=== PATIENT | female | born 1960 | race Caucasian/White ===

== ENCOUNTER 2023-06-28 21:55 | Inpatient (IN) | payer OTHER, MEDICARE, SELFPAY ==
[2023-06-28] VITALS (16 sets, daily range): BP systolic 90–124; BP diastolic 38–94; BMI 40.9
[2023-06-28] MEDS: TYLENOL/FEVERALL 650 MG RECTAL (19:02)
[2023-06-28] MEDS: TYLENOL/FEVERALL 325 MG RECTAL (19:02)
--- NOTE | 2023-06-28 19:25 | ED.GENMED ---
History of Present Illness
General
Chief Complaint: Change in Mental Status
Source: patient and ambulance crew
Exam Limitations: altered mental status
Time Seen by Provider: 06/28/23 19:05
Nursing documentation reviewed up to this point in time: agreed with
Travel History
Have you had any contact with someone who has COVID-19?: Unable to Answer
Do you have any symptoms of coronavirus? Fever > 100 degrees, chills, cough, shortness of breath, sore throat, loss of taste or smell, muscle aches, or headache?: Unable to Answer
History of Present Illness
History of Present Illness:
62-year-old female presents emergency department due to fever, altered mental status. She was sleeping all day, and woke up confused. She is on home oxygen, and came in with a room air saturation of 86%.
If applicable-neuro sx onset
Onset of symptoms known: Yes
Date of onset of symptoms: 06/28/23
Time pt last seen normal is known: No
Past History
Past History
ED Past Medical History: CAD, CHF, COPD, CVA, GERD, HTN, Hypercholesterolemia, NIDDM, Seizures, Psychiatric (Anxiety, depression) and Other (anemia, urinary incontinence)
Social History
Tobacco: Former smoker
Alcohol: None
Drug: None
Living: intermediate
Employment: Not employed
Review of Systems
Review of Systems
Allergies reviewed?: Yes
All Other Systems: Not applicable
Constitutional: Reports fever
EENT: Reports no symptoms
Respiratory: Reports trouble breathing
Cardiac: Reports no symptoms
ABD/GI: Reports no symptoms
: Reports no symptoms
Neurological: Reports other (confusion)
Phy Exam
Physical Exam
Physical Exam:
Physical Exam
General: fever 106.1
Neck: supple. no meningeal signs. normal posterior pharynx
Heart: s1/s2 tachycardia, no murmur. equal radial
pulses.
HEENT: Pupils equal round reactive to light, EOMI, dry MM
Lungs: no acute respiratory distress. clear bilaterally
Abdomen: normal bowel sounds. not tender. no CVAT
Neuro: alert to person. no focal neurological deficits cranial nerves II through XII intact
Skin: no rash, stage 3 sacral ulcer
Psychiatric: cooperative, confused
Extremities: no edema. no calf tenderness. negative homans. good distal pulses
Course
Orders/Labs/Results
Orders:
Orders
06/28/23 18:44
EKG [Electrocardiogram (*1)] Urgent
Reason for Study: Fatigue / Weakness
06/28/23 18:45
EKG- Treatment ONCE
06/28/23 18:57
Acetaminophen [Tylenol/Feverall] 325 mg .ROUTE .STK-MED ONE
Acetaminophen [Tylenol/Feverall] 650 mg .ROUTE .STK-MED ONE
06/28/23 18:58
Acetaminophen [Tylenol/Feverall] 325 mg RECTAL NOW STA
Acetaminophen [Tylenol/Feverall] 650 mg RECTAL NOW STA
06/28/23 19:05
Cardiac Monitoring- Treatment ONCE
IV Insert/Care/Rem.- Treatment PRN
O2 Therapy [RESP] Urgent
Nasal Cannula Liter Flow: 4 LPM
Titrate/Wean O2 to maintain O2 sat greater than (%): 92
Pulse Ox/cont/shift [RESP] Urgent
Quantity: 1
06/28/23 19:07
CR Chest Portable - 1 View Urgent
Comment:
Reason For Exam: fever, hypoxia
Reason Study Needs to be Portable: Patient Unstable
06/28/23 19:19
COVID-19 Antigen Urgent
Source: Nasal Swab
Complete Blood Count/With Diff Urgent
Comprehensive Metabolic Panel Urgent
Creatine Phosphokinase Urgent
Comment: ADD ON
Lactic Acid Q4H
Comment: CANCEL 2nd LACTIC ACID IF 1st LACTIC ACID IS LESS THAN 2
PTT Urgent
Prothrombin Time Urgent
Urinalysis Reflex To Culture Urgent
Date Specimen was Collected: 06/28/23
Time Specimen was Collected: 19:14
Urine Microscopic Reflex Cult Urgent
Blood Culture Q30M
NAN Source: Blood/Venous
Specimen Description:
Blood Culture Q30M
NAN Source: Blood/Venous
Specimen Description:
Influenza A+B Rapid Molecular Urgent
NAN Source: Nasal Swab
Specimen Description:
Respiratory Syncytial Virus Urgent
NAN Source: Nasal Swab
Specimen Description:
Date Specimen was Collected: 06/28/23
Time Specimen was Collected: 19:14
Urine Culture Urgent
NAN Source: U
Specimen Description:
Date Specimen was Collected: 06/28/23
Time Specimen was Collected: 19:14
06/28/23 19:46
Aztreonam [Azactam] 2,000 mg IV NOW STA
06/28/23 19:59
Sterile Water [Sterile Water For Injection] 10 ml .ROUTE .[facility]-MED ONE
06/28/23 20:14
Vancomycin [Vancocin] 2,000 mg 0.9% Sodium Chloride 500 ml [Nss] 500 ml IV NOW
06/28/23 20:56
CR Hip - RT w/wo Pel 2-3 Vw* Urgent
Comment:
Reason For Exam: Pain / Fever
Include a pelvis x-ray?: Yes
06/28/23 21:01
Admit/Transfer Patient As Directed
Co-Sign Provider:
Level of Care: Inpatient admission
Assign to:: IMU- Intermediate Care
Physician / Group: Anmol
Diagnosis: Sepsis
Reason for Hospitalization: Sepsis
Expected length of stay greater than two midnights?: Yes
ELOS- Estimated Length of Stay in days: 5
I certify the patient meets the requirements for IP care: Yes
06/28/23 21:03
Code Status As Directed
Resuscitation Status: Full Code
06/28/23 21:23
Add On- LAB Urgent
Tests Added?: CPK, ESR
06/28/23 21:36
ESR [Erythrocyte Sed Rate] Urgent
06/29/23 01:16
0.9% Sodium Chloride 1000 ml [Nss] 1,000 ml IV 100 mls/hr
Acetaminophen [Tylenol] 650 mg PO Q4H PRN
Albuterol Nebs [Ventolin Nebules] 2.5 mg INH R Q6HPRN PRN
Atorvastatin [Lipitor] 40 mg PO HS
Cefepime HCl [Maxipime] 2,000 mg IV Q12H
Dextrose 50%-Water [Dextrose 50% Syringe] 12.5 grams IV [id number] PRN
Gabapentin [Neurontin] 600 mg PO TID
Glucagon [GlucaGen] 1 mg IM PRN PRN
HYDROmorphone [Dilaudid] 0.5 mg IV Q4HPRN PRN
Ondansetron Injectable [Zofran] 4 mg IV Q6HPRN PRN
Oxycodone [Roxicodone] 10 mg PO Q6H PRN
VANCOMYCIN Pharmacy to Dose [VANCOCIN Pharmacy to Dose] 1 each Pharmacy To Prepare [Call Pharmacy To Prepare] 0 ml IV PER PROTOCOL
06/29/23 01:16
WOUND/OSTOMY CONSULT Routine
Reason for Consult: Sacral Wound
Iron Routine
Osmolality, Random Urine Routine
Total Iron Binding Routine
Urine Sodium Routine
Activity As Directed
Activity Level: Out of Bed- Chair
With Assistance
Bedside Glucose Monitoring As Directed
Frequency: AC&HS
Comment: Change to q6h if pt on TPN, tube feeding or not eating
EKG with chest pain [ECG as needed] As Directed
ECG as needed for:: Chest Pain
Mota Catheter [Catheter- Indwelling] As Directed
Reason for insertion: Chronic Mota on Admit
I/O [Intake/ Output] As Directed
Frequency: Per unit guidelines
Records Request [Obtain Records] As Directed
Dates of Information to be Released: Most recent
Type of Information Requested: Entire Record
Obtain Records from: [facility]
Vital Signs As Directed
Frequency: Per unit guidelines
Weight As Directed
Frequency: Daily
Oxygen Therapy [O2 Therapy] [RESP] Routine
Titrate/Wean O2 to maintain O2 sat greater than (%): 94
Ot Eval And Treat Routine
PT Consult [Pt Eval And Treat] Routine
Activity Level: Ambulate
With Assistance
DX Deep Vein Thrombosis Video Routine
06/29/23 Breakfast
Clear Liquid
Basic Metabolic Panel IN AM
Complete Blood Count/No Diff IN AM
Glycohemoglobin (HgbA1c) IN AM
LFT [Zjtfr-Uhek-Deoblnf] IN AM
Magnesium IN AM
06/29/23 07:30
Insulin Aspart Corrective Low [Novolog Flexpen-Low Resistance] See Protocol SC AC
06/29/23 08:00
FOLic ACID [Folvite] 1 mg PO DAILY
Morphine Sulfate Extended Rel. [Ms Contin (Extended Release)] 30 mg PO BID
Phenytoin [Dilantin] 200 mg PO DAILY
Sertraline HCl [Zoloft] 100 mg PO DAILY
06/29/23 18:00
Enoxaparin Sodium [Lovenox] 40 mg SC QPM
Abnormal Lab Results
06/28/23 06/28/23
19:19 21:36
RBC 2.94 L 10^6/uL
(4.20-5.40)
Hgb 8.8 L g/dL
(12.0-16.0)
Hct 26.8 L %
(37.0-47.0)
MCHC 32.8 L g/dL
(33.0-37.0)
RDW 15.3 H %
(11.5-14.5)
Absolute Lymphs (auto) 0.9 L 10^3/uL
(1.2-3.4)
Neutrophils % 78.5 H %
(42.2-75.2)
Lymphocytes % 15.4 L %
(20.5-51.1)
ESR 59 H mm/hour
(0-20)
PT 16.9 H Sec
(11.4-14.6)
APTT 36.2 H Sec
(23.4-35.0)
Sodium 129 L mmol/L
(135-145)
Glucose 103 H mg/dl
(70-99)
Calcium 7.9 L mg/dl
(8.4-10.2)
AST 194 H U/L
(14-36)
ALT 36 H U/L
(0-35)
Alkaline Phosphatase 347 H U/L
(38-126)
Total Protein 5.6 L g/dl
(6.3-8.2)
Albumin 2.8 L g/dl
(3.5-5.0)
Urine Ketones Trace A
(Negative)
Ur Occult Blood Reflex 4+ A
(Negative)
Urine Bilirubin 1+ A
(Negative)
Leukocyte Esterase Rfl 2+ A
(Negative)
Urine RBC 7-10 A /HPF
(0-2)
Urine WBC (Reflex) 30-40 A /HPF
(0-5)
Urine Bacteria (Reflex) Many A
(Negative)
Urine Yeast Few A
(Negative)
Urine Albumin (Reflex) 1+ A
(Neg - Trace)
06/28/23 19:19
06/28/23 19:19
Vital Signs
Initial and Last Documented VS:
Initial Vital Signs
Pulse Resp Pulse Ox
99 18 94
06/28/23 18:43 06/28/23 18:43 06/28/23 18:43
Last Documented Vital Signs
Temp Pulse Resp BP Pulse Ox
102.2 F H 89 21 126/80 93
06/29/23 00:19 06/29/23 00:19 06/29/23 00:15 06/29/23 00:15 06/29/23 00:15
*Pulse Oximetry
Patient hypoxic: yes
*EKG
Interpreted by ED Provider?: Yes
EKG Intrepretation Date: 06/28/23
EKG Intrepretation Time: 19:25
Interpretation: abnormal
Comparison EKG: no comparison EKG present
Heart Rate: 96
Rate: normal
Rhythm: sinus
[place]: left axis deviation
Interval: normal interval
QRS Pattern: normal QRS
Ischemia: non-specific ST changes
*Critical Care Note
Total Time (30-74mins, 75-104mins- exclusive of procedures): Not Applicable
ED Attending Note
-
Portions of this chart may have been created with voice recognition software.� Occasional wrong word or��sound alike� substitutions may have occurred due to the inherent limitations of voice recognition software.
Discharge Plan
Departure
Patient Disposition: Admit
Date of Disposition: 06/28/23
Time of Disposition: 20:14
Admit to: ICU
Presentation/result/management discussed w/ accepting MD/DO: Hospitalist
Patient with high blood pressure during this ER visit?: Yes
Condition: Serious
Discharge Problem:
Pneumonia, Fever 106 degrees F or over, Sacral decubitus ulcer, stage III
Interventions
Interventions:
*Risk Screen - Suicide Last Done: 06/28/23 20:14
*General Assessment Last Done: 06/28/23 20:14
*Neglect/Abuse Screening Last Done: 06/28/23 20:14
ED- Fall Risk Assessment Last Done: 06/28/23 20:17
*ED COVID-19 Vaccine History Last Done: 06/28/23 20:14
ED- Neurological Assessment Last Done: 06/28/23 20:15
[2023-06-28 19:53] LABS: % Eosinophils 0.5 % (0-6); % Immature Granulocytes 0.3 % (0-0.5); % Lymphocytes 15.4 % (20.5-51.1); % Monocytes 4.3 % (1.7-9.3); % Neutrophils 78.5 % (42.2-75.2); Absolute Basophils 0.1 10^3/uL (0-0.2); Absolute Lymphocytes 0.9 10^3/uL (1.2-3.4); Absolute Monocytes 0.3 10^3/uL (0.1-0.6); Absolute Neutrophils 4.5 10^3/uL (1.4-6.5); Hematocrit 26.8 % (37.0-47.0); Hemoglobin 8.8 g/dL (12.0-16.0); Mean Corp Hgb Conc. 32.8 g/dL (33.0-37.0); Mean Corpuscular Hgb 29.9 pg (27.0-31.0); Mean Corpuscular Volume 91.2 fL (81.0-99.0); Mean Platelet Volume 9.3 fL (7.4-10.4); Nucleated Red Blood Cells % 0 %; Platelet Count 324 10^3/uL (130-400); Red Blood Cell Count 2.94 10^6/uL (4.20-5.40); Red Cell Dist. Width 15.3 % (11.5-14.5); White Blood Cell Count 5.8 10^3/uL (4.8-10.8)
[2023-06-28 20:03] LABS: INR 1.34; PT 16.9 Sec (11.4-14.6)
[2023-06-28 20:04] LABS: APTT 36.2 Sec (23.4-35.0)
[2023-06-28] MEDS: AZACTAM 2000 MG IV (20:08)
[2023-06-28 20:10] LABS: COVID-19 Antigen Negative (Negative)
[2023-06-28 20:13] LABS: ALT (SGPT) 36 U/L (0-35); AST (SGOT) 194 U/L (14-36); Albumin 2.8 g/dl (3.5-5.0); Alkaline Phosphatase 347 U/L (38-126); Blood Urea Nitrogen 7 mg/dl (7-17); Calcium 7.9 mg/dl (8.4-10.2); Carbon Dioxide 23 mmol/L (22-30); Chloride 105 mmol/L (98-107); Estimated Creatinine Clearance > 125 ml/min; Glucose 103 mg/dl (70-99); Potassium 4.8 mmol/L (3.5-5.1); Sodium 129 mmol/L (135-145); Total Bilirubin 0.7 mg/dl (0.2-1.3); Total Protein 5.6 g/dl (6.3-8.2); eGFR > 60.00
[2023-06-28 20:14] LABS: Urine Albumin 1+ (Neg - Trace); Urine Bilirubin 1+ (Negative); Urine Character Slightly Cloudy (Clear); Urine Color Yellow; Urine Glucose Negative (Negative); Urine Ketone Trace (Negative); Urine Leukocyte 2+ (Negative); Urine Nitrite Negative (Negative); Urine Occult Blood 4+ (Negative); Urine Specific Gravity 1.015 (<1.030); Urine Urobilinogen Negative (Neg - 1+)
[2023-06-28 20:28] LABS: Urine Mucus Few; Urine Squamous Cell 16-20 /LPF (Few)
[2023-06-28 20:34] LABS: Urine Bacteria Many (Negative); Urine White Cell 30-40 /HPF (0-5); Urine Yeast Few (Negative)
[2023-06-28] MEDS: VANCOCIN 540 MG IV (20:43)
--- NOTE | 2023-06-28 21:09 | HPS.HSE ---
Family Physician
-
Family Physician: Rex Boswell
Chief Complaint
-
Fever / Confusion
History of Present Illness
Patient is a 62y F with PMH significant for chronic bedbound status, seizure disorder and chronic pain who [facility] fever to 103, SpO2 = 88% on oxygen and change in mental status. Patient was recently
hospitalized at [facility] and was discharged to [facility] on Wednesday. Patient cannot tell me why she was hospitalized. She gets clearly frustrated by her inability to remember / communicate.
She currently complains of pain in the R hip and notes that she has avascular necrosis of that hip. It is not clear whether that was the reason for her recent hospitalization, however.
In the ED, patient has fever to 106.
Medical History
Past Medical History
Past Medical History: Reports Other
Additional Past Medical History:
Chronic Anemia - Unknown Type
Chronic Bed-Bound Status
Morbid Obesity
DANIEL
COPD
Chronic Hypoxemic Respiratory Failure on Home O2
Anxiety / Depression
Avascular Necrosis R Femoral Head
Chronic Pain / Chronic Opioid Dependence
Seizure Disorder
Hyponatremia
DM-II
ASCVD
Indwelling Mota Catheter
Past Surgical History: Reports Other
Additional Past Surgical History:
None Known
Social History
Tobacco: Former Smoker
Alcohol: None
Drug: None
Living: Long Term
Family History
Family History: Not pertinent
Allergies / Home Medications
Allergies reflects when Allergies were last updated in [facility].
Home Medications with original date entered in [facility]
Allergy/Medication List:
Allergies
Allergy/AdvReac Type Severity Reaction Status Date / Time
buspirone Allergy Unknown Verified 06/28/23 18:44
ciprofloxacin Allergy Unknown Verified 06/28/23 18:44
Penicillins Allergy Unknown Verified 06/28/23 18:44
Home Medications
Diclofenac Sodium 1% Gel 1 applic topical QID 06/28/23
acetaminophen 325 mg tablet (Tylenol) 650 mg PO Q4H PRN mild pain/temp>100F 06/28/23
albuterol sulfate 2.5 mg/3 mL (0.083 %) solution for nebulization 2.5 mg inhalation R Q6HPRN PRN sob/wheezing 06/28/23
atorvastatin 40 mg tablet 40 mg PO HS 06/28/23
bisacodyl 10 mg rectal suppository (Dulcolax (bisacodyl)) 10 mg UT DAILY PRN if MOM is ineffective after 24 hrs 06/28/23
calcium acetate 952 mg-aluminum sulfate 1,347 mg topical powder packet ([place]) 1 applic topical BID 06/28/23
collagenase clostridium histo. 250 unit/gram topical ointment 1 applic topical DAILY apply to sacrum 06/28/23
folic acid 1 mg tablet 1 mg PO DAILY 06/28/23
gabapentin 300 mg capsule 600 mg PO TID 06/28/23
magnesium hydroxide 400 mg/5 mL oral suspension (Milk of Magnesia) 30 ml PO DAILY PRN if no BM in 3 days 06/28/23
magnesium oxide 400 mg PO DAILY 06/28/23
morphine 30 mg tablet,extended release 30 mg PO BID 06/28/23
oxycodone 15 mg tablet (Roxicodone) 15 mg PO Q6H PRN wound pain 06/28/23
pantoprazole 40 mg tablet,delayed release 40 mg PO DAILY 06/28/23
phenytoin sodium extended 100 mg capsule 200 mg PO DAILY 06/28/23
sertraline 25 mg tablet 125 mg PO DAILY 06/28/23
sodium phosphates 19 gram-7 gram/118 mL enema (Fleet Enema) 118 ml UT DAILYPRN PRN if dulcolax is ineffective after 24 hrs 06/28/23
Review of Systems
-
History Source: Patient
A 12 point ROS was completed and negative except as noted: Yes
Constitutional: Reports Fatigue; Denies Fever or Chills
EENT: Reports Runny Nose
Respiratory: Denies Cough or Trouble Breathing
Cardiac: Denies Chest Pain or Palpitations
Abdomen/GI: Denies Abdominal Pain, Nausea, Vomiting or Diarrhea
: Reports Mota
Musculoskeletal: Reports Joint Pain and Edema
Neurological: Denies Dizzy or Headache
Physical Exam
Vital Signs
Vital Signs
Temp Pulse Resp BP Pulse Ox
106.1 F H 90 18 97/57 93
06/28/23 19:02 06/28/23 20:00 06/28/23 20:00 06/28/23 20:00 06/28/23 19:45
Physical Exam
General: Other (62y F in no acute distress. Confused - not able to contribute to history.)
HEENT: Other (Dry MM. Thick neck.)
Respiratory: Other (Decreased at bases - otherwise clear.)
Cardiac: S1/S2 and Regular Rhythm; No Murmur
GI: Other (Morbidly obese. Mild lower abdominal tenderness. No rebound / guarding. Pos BS.)
Musculoskeletal: No Clubbing, No Cyanosis and Other (Induration and increased warmth over the R greater trochanter / hip region. Pos tenderness. No appreciable fluctuance.)
Skin: Other (Stage III sacral decub wth some surrounding induration / erythema.)
Neuro: Awake and Alert; No Oriented
Psych: Confused and Depressed
Laboratory Results
-
06/28/23 19:19
06/28/23 19:19
Laboratory Results
PT 16.9 Sec (11.4-14.6) H 06/28/23 19:19
INR 1.34 06/28/23 19:19
APTT 36.2 Sec (23.4-35.0) H 06/28/23 19:19
Lactic Acid 1.0 mmol/L (0.7-2.0) 06/28/23 19:19
Total Bilirubin 0.7 mg/dl (0.2-1.3) 06/28/23 19:19
AST 194 U/L (14-36) H 06/28/23 19:19
ALT 36 U/L (0-35) H 06/28/23 19:19
Alkaline Phosphatase 347 U/L (38-126) H 06/28/23 19:19
Impression/Plan
-
A/P: Patient is a 62y F with PMH significant for morbid obesity, chronic pain and recent hospitalization at [facility], hypoxemia and confusion.
Sepsis / Fever
- Admit for further evaluation and treatment.
- Multiple potential sources including pulmonary (L base pneumonia), (CAUTI), Skin (sacral decub) and ortho (R hip).
- Continue broad spectrum abx for now with vanco and cefepime.
- Follow-up imaging and culture results and adjust treatment plan as appropriate.
- ID evaluation for additional recommendations.
- Supportive care including IVFs, antipyretics, etc.
- Obtain records from [facility] to shed light on recent hospitalization, culture data, lab values, etc.
- Check CPK, ESR, etc. Consider Ortho evaluation depending on results of labs / hip imaging / etc.
LLL Pneumonia
Acute on Chronic Hypoxemic Respiratory Failure
COPD without Acute Exacerbation
- CXR with possible L base pneumonia and small effusion.
- Fairly unimpressive findings considering fever to 106.
- IV abx as noted above.
- Nebs, O2 support, etc.
- Follow for clinical improvement.
Chronic Indwelling Mota Catheter
CAUTI
- UA consistent with infection. IV abx as noted above.
- Follow-up culture data.
- Mota exchanged in the ED this evening.
Stage III Sacral Decubitus Ulcer
- ? associated cellulitis versus inflammation related to R hip versus combination of the two.
- IV abx as noted above.
- Wound care evaluation for local care.
Avascular Necrosis of the Right Hip
- Unclear chronicity of this condition. Patient complains of pain at present and surrounding induration / increased warmth in tissues overlying the hip.
- Check x-rays to start, ESR, CPK, etc as notd above.
- IV abx as noted above.
- Depending on imaging results - ? Ortho eval / IR aspiration for further evaluation.
Abnormal LFTs
- ? if this is more reflective of muscle / bone process given AST / Alk Phos elevations.
- Additional work up as noted above.
- Follow for any GI complaints, etc.
Anemia of Chronic Disease
- Unknown baseline. Follow-up recent records from [facility] for comparison.
- No evidence of active bleeding at present.
- Check iron studies. Follow H&H for any changes.
Hyponatremia
- Reportedly chronic hyponatremia by diagnosis list.
- Check urine studies. IVFs overnight and follow for changes in lytes.
Seizure Disorder
- Unknown history, most recent seizure, etc.
- Continue phenytoin and follow for any breakthrough seizures.
Benign Hypertension
DM-II
- Patient has both listed diagnoses, but on no medications for either.
- Follow BP / glucose.
- Cover with SSI as needed. Update A1C.
Chronic Pain Syndrome
Chronic Opioid Dependence
Chronic Bed-Bound Status
- Continue usual BID morphine dosing.
- Continue oxycodone PRN - but at decreased dosing.
- PT / OT evaluations.
- ? etiology of bed-bound nature (? avascular necrosis).
Morbid Obesity due to excess calories / immobility
- Affects all aspects of care.
- This bed-bound 62y F will not be able to effect significant changes in diet or exercise to realize significant weight loss.
DVT Prophylaxis: Lovenox
Code Status: Full
[2023-06-28 21:51] LABS: Erythrocyte Sed Rate 59 mm/hour (0-20)
[2023-06-28] MEDS: TORADOL 15 MG IV (22:13)
[2023-06-28 22:22] LABS: Creatine Phosphokinase 39 U/L (30-135)
[2023-06-29] VITALS (59 sets, daily range): BP systolic 66–164; BP diastolic 42–131; BMI 39.7; BMI 39.6
[2023-06-29] MEDS: TYLENOL 650 MG PO ×3 (01:39→19:33)
[2023-06-29] MEDS: NSS 1000 IV ×4 (01:40→21:40)
[2023-06-29] MEDS: NEURONTIN 600 MG PO ×4 (01:40→21:06)
[2023-06-29] MEDS: MAXIPIME 2000 MG IV ×3 (01:48→17:33)
[2023-06-29] MEDS: STERILE WATER FOR INJECTION 10 ML IV ×3 (01:48→17:33)
[2023-06-29] MEDS: LIPITOR PO (01:49)
[2023-06-29] MEDS: DILAUDID 0.5 MG IV ×2 (02:08→10:25)
[2023-06-29 04:34] LABS: Iron 23 ug/dl (37-170)
[2023-06-29 04:35] LABS: ALT (SGPT) 41 U/L (0-35); AST (SGOT) 206 U/L (14-36); Albumin 2.3 g/dl (3.5-5.0); Alkaline Phosphatase 284 U/L (38-126); Blood Urea Nitrogen 11 mg/dl (7-17); Calcium 7.4 mg/dl (8.4-10.2); Carbon Dioxide 22 mmol/L (22-30); Chloride 107 mmol/L (98-107); Direct Bilirubin 0.6 mg/dl (0.0-0.4); Estimated Creatinine Clearance 120 ml/min; Glucose 103 mg/dl (70-99); Magnesium 1.4 mg/dl (1.6-2.3); Potassium 4.6 mmol/L (3.5-5.1); Sodium 132 mmol/L (135-145); Total Bilirubin 0.6 mg/dl (0.2-1.3); Total Protein 4.9 g/dl (6.3-8.2); eGFR > 60.00
[2023-06-29 04:45] LABS: Percent Saturation 16 % (20-50); Total Iron Binding Capacity 140 ug/dl (265-497)
[2023-06-29] MEDS: NSS 500 IV (05:47)
--- NOTE | 2023-06-29 05:51 | W.PN.UPDATE ---
Update Note
Progress Note Update
Morning Labs:
- Magnesium 1.4, repleted with Magnesium Sulfate 1gm IVPB now
- Calcium 7.4, corrected with hypoalbuminemia to 8.4, no new orders
--- NOTE | 2023-06-29 06:09 | PTCARENOTE ---
pt admitted from ED- pt is AAOx1/2- pt oriented to self and knows she is in the hospital. pt arrives from the ED with diffuse rigors, calling and screaming out. ST 120s-130s, rectal temp 103.3. PO tylenol given per AUG. notified [facility] [employer] T[employer]ER OFF- cooling
blanket applied, SBP low- 80s. bolus hung and infusing. Mg low- rider ordered and to be hung. pt skin mottled. olivares intact- draining dark isela urine. right buttock wound changed- gauze and abd applied, serosang drainage. bed alarm on at present
d/t pt mentation. pain to right hip- IV meds given per AUG. pt oriented to new room, call schaffer within reach, care ongoing.
[2023-06-29] MEDS: MAGNESIUM SULFATE 100 IV (06:27)
[2023-06-29 06:53] LABS: Osmolality Urine 346 mOsm/kg (300-900)
[2023-06-29 06:59] LABS: Urine Sodium 15 mmol/L (30-90)
[2023-06-29] MEDS: DILANTIN 200 MG PO (07:50)
[2023-06-29] MEDS: FOLVITE 1 MG PO (07:50)
[2023-06-29] MEDS: MS CONTIN (EXTENDED RELEASE) 30 MG PO (07:50)
[2023-06-29] MEDS: ZOLOFT 100 MG PO (07:50)
[2023-06-29] MEDS: VENTOLIN NEBULES 2.5 MG INH (08:09)
[2023-06-29] MEDS: NOVOLOG FLEXPEN-LOW RESISTANCE SC (08:26)
[2023-06-29 08:37] LABS: Glucose - Point of Care 133 mg/dl (70-99)
--- NOTE | 2023-06-29 09:30 | CON.ID ---
Consultation
-
Date/Time Consultation Requested: June 29, 2023 0116
Date/Time Consultation Performed: June 29, 2023 0930
Requesting Provider: Dr. Julian Fierro
Performing Provider: Dr. Ebony Rich
Reason for Consultation: Sepsis
Chief Complaint / Past History
Chief Complaint
Fevers
History of Present Illness
62-year-old female from [facility] with chronic pain from avascular necrosis of the right hip, diabetes mellitus, COPD on chronic oxygen, seizure disorder x 1 on phenytoin, chronic indwelling Olivares catheter who
presented to the hospital last night due to fevers and chills which started yesterday. Patient was febrile up to 106. White count normal.Lactic acid normal. LFTs elevated. She is placed on cooling blanket and temperature still on 101. She
complains of shaking chills. No abdominal pain. No diarrhea. Positive cough nonproductive. No headache. No URI symptoms. Her chronic right hip pain stable. She developed sacral wound approximately 1 to 2 months ago due to ambulatory
dysfunction from right hip pain. She reports she was hospitalized at [facility] about 2 and half weeks ago for COPD exacerbation, no fever at that time.
Past History
Additional Past Medical History:
DM2
Morbid Obesity
DANIEL
COPD
Chronic Hypoxemic Respiratory Failure on Home O2
CAD
Anxiety / Depression
Avascular Necrosis R Femoral Head
Chronic olivares
Chronic Pain / Chronic Opioid Dependence
Seizure Disorder
Hyponatremia
Bedbound
SNF Resident
Allergy History:
buspirone Allergy (Verified 06/28/23 18:44)
Unknown
ciprofloxacin Allergy (Verified 06/28/23 18:44)
Unknown
Penicillins Allergy (Verified 06/28/23 18:44)
Unknown
Medications Reviewed: Yes
Current Antibiotics:
Vancomycin
cefepime
metronidazole
Social History
Tobacco: Former Smoker
Alcohol: None
Drug: None
Living: [facility]-Way ([facility])
Family History
Family History: Not Pertinent
Review of Systems
Review of Systems
General: Fever, Chills and Change in Appetite
HEENT: Negative Stiff Neck, Sinus Problems, Headache or Pharyngitis
Cardiovascular: Negative Chest Pain, Dyspnea or Palpitations
Respiratory: Cough; Negative Sputum Production
Gasteroenterology: Negative Nausea or Vomiting
Genital / Urological: Negative Flank Pain
Endocrine: Weakness
Musculoskeletal: Arthralgias (chronic right hip pain)
Skin / Hair / Nails: Negative Rash
Neurological: Negative Headache or Dizziness
All systems: All other systems were reviewed and were negative
Vital Signs
Temp Pulse Resp BP Pulse Ox
101.5 F H 125 22 85/60 97
06/29/23 07:18 06/29/23 08:15 06/29/23 08:15 06/29/23 06:00 06/29/23 08:15
Selected Entries
06/28/23
19:02 06/29/23
01:36 06/29/23
07:18
Temp 106.1 F H 103.9 F H 101.5 F H
Physical Exam
Physical Exam
Constitutional: Acutely Ill (shivering) and Obese
Eyes: No Conjunctival Hemorrhage and Sclera Anicteric
Oral: Poor Dentition
Cardiovascular: S1/S2 and Other (tachycardic)
Pulmonary: Other (Decreased airway movements. ); Negative Rales or Rhonchi
Gastrointestinal: Soft, Non Tender, Non Distended and Normal Bowel Sounds
Genito-Urinary: Olivares and Clear Urine (dark)
Extremities: Edema
Musculoskeletal: Other (right hip: no effusion/erythema/warmth); Negative Spinal Tenderness
Skin: Negative Rash
Wound: Other (Examined with wound nurse Michelle: sacral decubitus with clean healthy granulating tissue, no drainage, no surrounding erythema)
Neurological: AO x 3
Lab / Diagnostic Study Results
06/29/23 03:52
Abs Immat Gran (auto) 0.0 10^3/uL (0-0.05) 06/28/23 19:19
Absolute Neuts (auto) 4.5 10^3/uL (1.4-6.5) 06/28/23 19:19
Absolute Lymphs (auto) 0.9 10^3/uL (1.2-3.4) L 06/28/23 19:19
Absolute Monos (auto) 0.3 10^3/uL (0.1-0.6) 06/28/23 19:19
Absolute Basos (auto) 0.1 10^3/uL (0-0.2) 06/28/23 19:19
Immature Gran % 0.3 % (0-0.5) 06/28/23 19:19
Neutrophils % 78.5 % (42.2-75.2) H 06/28/23 19:19
Lymphocytes % 15.4 % (20.5-51.1) L 06/28/23 19:19
Monocytes % 4.3 % (1.7-9.3) 06/28/23 19:19
Eosinophils % 0.5 % (0-6) 06/28/23 19:19
Basophils % 1.0 % (0-2) 06/28/23 19:19
ESR 59 mm/hour (0-20) H 06/28/23 21:36
PT 16.9 Sec (11.4-14.6) H 06/28/23 19:19
INR 1.34 06/28/23 19:19
Lactic Acid Cancelled 06/28/23 23:15
Ur Squamous Epith Cells 16-20 /LPF (Few) 06/28/23 19:19
Microbiology Results
Micro:
06/29/23 03:52 MRSA Screen - Pending
Nose
06/28/23 19:19 Urine Culture - Pending
Urine
06/28/23 19:19 Influenza Types A & B (AB) - Final
Nasal Swab Negative for Influenza A & B, NAAT
Negative results must be combined with clinical observations
and patient history.
Nucleic Acid Amplification test (NAAT)performed on the
[employer] platform.
06/28/23 19:19 Respiratory Syncytial Virus Culture - Final
Nasal Swab Negative for Respiratory Syncytial Virus.
A false negative result may be obtained with a specimen
collected early in the acute phase. If symptoms persist, a
new specimen should be tested.
06/28/23 19:19 Blood Culture - Pending
Blood/Venous
06/28/23 19:19 Blood Culture - Pending
Blood/Venous
06/28/23 CXR: Small left pleural effusion with associated atelectasis and/or pneumonia.
Assessment / Plan
# High fever/hyperthermia up to 106F
# Tachycardia
# Elevated LFT's (unclear acute vs chronic)
# chronic sacral decubitus - clean w/o infection
# Chronic olivares - expected pyuria/colonization
# CXR: small L pleural effusion with atelectasis
# COPD on chronic O2
# Chronic right hip pain avascular necrosis of hip
# Reported seizure x 1, on phenytoin
- no leukocytosis, lactate normal
- highly concern for phenytoin associated high fever, possibly source of transaminases
-awaiting outside records from [facility]
-Agree with Neuro consult regarding replacing phenytoin and monitor for improvement of fevers
- Can continue Vanco/cefepime pending culture data.
-DC metronidazole.
Care Review
Plan reviewed with: Physician (Dr. Fierro)
--- NOTE | 2023-06-29 09:47 | CM ---
Patient from [facility] with Dx Sepsis / Fever, PNA, CAUTI, Stage III Sacral Decubitus Ulcer. O2 8L midflow. Receiving IV Abx, Decadron. Clear liquids. Per nurse assessment; confused, requires assist of 2 for mobility. Wound care nurse
consult. PT & OT Evals pending.
Spoke with Felicity, s [facility]; the patient was at [facility] for short term rehab under [employer] insurance auth (no bed hold), and was not participating well with PT. She was confused and requiring total care.
Plan follow up after PT/OT Evals.
[2023-06-29] MEDS: FLAGYL 500 MG 100 IV (09:52)
[2023-06-29] MEDS: ProAmatine 5 MG PO (09:52)
[2023-06-29] MEDS: DECADRON 4 MG IV ×3 (09:52→21:06)
[2023-06-29 09:54] LABS: NT-proBNP 7100 pg/ml
--- NOTE | 2023-06-29 10:25 | WOUNDNOTE ---
R BUTTOCK TO R ISCHIUM
--- NOTE | 2023-06-29 10:29 | WOUNDNOTE ---
L BUTTOCK DOWN TO L ISCHIUM
--- NOTE | 2023-06-29 10:30 | WOUNDNOTE ---
WON RN note: Patient admitted with pneumonia,fever and sacral decubitus stage 3.
See H&P for complete history. From [facility], .
PMH: CAD,CHF,COPD,CVA,HTN,NIDDM, ex smoker, anxiety/depression, anemia, seizures, urinary incontinence-chronic Mota catheter, avascular necrosis to R hip and chronic pain.
Wound Location and type/assessment: Patient admitted with: Stage 3 large PI to L buttock extending down to Ischium, small hermosillo eschar, otherwise clean and friable. R buttock with small stage 2 PI. R thigh with stage 3 PI. Patient states she has had
wounds for about a month. Suspect obtained PI from prolonged sitting in chair. Heels intact.
Appetite: Fair, encouraged protein in diet when able, on clears.
Pressure redistribution devices in place: On Centrella Max bed, instructed nurse make sure patient remains on air bed.
Plan: Adaptic, ABD pad and silicone tape applied to L buttock/ischium and silicone foam to R thigh. Confirmed wound care with Dr. Rich who assessed wounds with this specifications writer. Pillow placed under calves to offload intact heels.
Updated nurse Nola and will update care plan/orders. Will follow as needed.
Note to case management of equipment requested for discharge: Air mattress and offloading cushion
Recommend follow up at wound care center upon discharge.
--- NOTE | 2023-06-29 10:52 | PHA.VAN.IN ---
Assessment
- Assessment
Renal Function: Appears similar to baseline
Concomitant Antimicrobials: cefepime
Plan
- Plan
Initial / Loading Dose: 2000mg - 06/28 20:43
Maintenance Regimen: 750mg q6 x3 doses then dosing by level
Monitoring: random 06/30 0600
Given patient's BMI and estimated renal function, anticipate subtherapeutic levels may be remaining post 2g loading dose
Patient also may be slower to achieve equilibrium between tissues and serum due to BMI
Will give patient a divided loading dose based on the study: Rosalba Pharmacother. 2015 Jan;49(8):861-8
Adapting slightly - will give reduced dosing of 750mg Q6 rather than 1000mg Q6 as patient received initial 2g dose and with bedbound status and comorbidities, estimated renal function may be less accurate
Pharmacokinetics Vancomycin I
- -
Patient Age: 62
Patient Sex: Female
Vancomycin Day #: 1
Indication: Bacteremia
Requesting Provider: Dr. Corea / Hilario
Pertinent Antimicrobial Allergies:
ciprofloxacin - unknown
penicillin - unknown
Height / Weight:
Height 5 ft 10 in
Actual Weight 125.3 kg
Pertinent Past Medical History: BMI ~40, DM, COPD on chronic O2, bedbound
- Vital Signs / Lab Results
Temp Pulse Resp BP Pulse Ox
100.2 F 105 31 99/52 98
06/29/23 10:30 06/29/23 10:30 06/29/23 10:30 06/29/23 10:30 06/29/23 10:37
Lab Results - Hematology
06/28/23
19:19
WBC 5.8
Lab Results - Chemistry
06/28/23 06/29/23
19:19 03:52
BUN 7 11
Creatinine 0.6 0.7
Estimated Creat Clear > 125 120
Albumin 2.8 L 2.3 L
06/28/23 06/28/23
19:19 23:15
Lactic Acid 1.0 Cancelled
Lab Results - Urine
06/28/23
19:19
Urine Nitrite (Reflex) Negative
Leukocyte Esterase Rfl 2+ A
Urine WBC (Reflex) 30-40 A
Ur Squamous Epith Cells 16-20
Urine Bacteria (Reflex) Many A
Microbiology Results
06/28/23 19:19 Influenza Types A & B (AB) - Final
Nasal Swab Negative for Influenza A & B, NAAT
Negative results must be combined with clinical observations
and patient history.
Nucleic Acid Amplification test (NAAT)performed on the
[employer] platform.
06/28/23 19:19 Respiratory Syncytial Virus Culture - Final
Nasal Swab Negative for Respiratory Syncytial Virus.
A false negative result may be obtained with a specimen
collected early in the acute phase. If symptoms persist, a
new specimen should be tested.
[2023-06-29] MEDS: VANCOCIN 150 IV ×3 (11:38→23:14)
[2023-06-29] MEDS: MUCINEX 1200 MG PO ×2 (11:38→19:33)
[2023-06-29] MEDS: ATIVAN 0.5 MG PO (11:46)
--- NOTE | 2023-06-29 12:31 | CON.NEURO ---
Consultation
Order
CC: none
HPI: This is a 62-year-old right-handed woman who presented to [facility] on 06/28/2023 with encephalopathy and fever. Neurology consultation was requested for management of antiepileptic therapy in view of suspected drug-induced
hyperthermia.
Patient with a single seizure in remote past. No history of epilepsy, head trauma with loss of consciousness or strokes.
She states that she was recently treated for sacral infection
ER VS: 121/63-74/63, 99-104, 22-25, T 41.2C, 94% on 4l NC
VS by EMS: 121/63, 108, 20, SPo2 77%
PDMP:Oxycodone Hcl (Ir) 5 Mg Tablet 180 tabs filled in on 06/16/2023, 06/10/2023, Morphine Sulf 100 Mg/5 Ml Conc filled in on 06/10/2023, Lorazepam 0.5 Mg 30+ 42 tabs filled in on 06/03/2023
Labs: mg 1.4, gluc 104, normal WBC, Hb 8.8, ESR 59, ua-pos for LE, bacteria, 30-40 WBCs, neg for nitrates.
CXR-small left pleural effusion with associated atelectasis and/or pneumonia.
PMH: Chronic pain syndrome on opioid therapy, ambulatory dysfunction, chronic hypoxic respiratory failure/COPD, DANIEL, CAD, HTN, DLP, DM, MDD, GERD, anemia, Avascular Necrosis R Femoral Head
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
FH:not contributory
All: cipro, buspirone, PNC
ROS:Constitutional: Negative. Negative for chills, fever and unexpected weight change.
HENT: Negative for ear pain, hearing loss, tinnitus and trouble swallowing.
Eyes: Negative. Negative for photophobia, pain and visual disturbance.
Respiratory: Negative for cough, choking and shortness of breath.
Cardiovascular: Negative for chest pain, palpitations and leg swelling.
Gastrointestinal: Negative for abdominal pain and vomiting.
Endocrine: Negative. Negative for cold intolerance.
Genitourinary: positive for chronic UI
Musculoskeletal: positive for arthralgias (chronic right hip pain)
Skin: Negative for rash.
Allergic/Immunologic: Negative. Negative for immunocompromised state.
Neurological: positive for tremors, leg weakness
Psychiatric/Behavioral: positive for transient confusion.
General: Well developed. In no acute distress.
Cardio: Regular rate and rhythm without murmur. Extremities are without cyanosis or edema.
Neuro:
Mental Status: Alert, oriented to self, person, place, month, year. Mildly impaired attention and recall. Good fund of knowledge. Follows complex requests across the midline. Comprehension, naming, and repetition intact.
Cranial Nerves: Pupils are equally round and reactive to light. EOMs full. Visual garrett full to confrontation. No ptosis. No nystagmus. V1-V3 intact to light touch and pinprick bilaterally, symmetric. Face symmetric. Normal hearing AU. The
palate elevated well. SCMs and traps 5/5. Tongue midline. No dysarthria.
Motor: Normal bulk and tone. No pronator or arm drift. Strength 5/5 throughout, except for proximal leg weakness 1/5. Distal strength-5-/5 No clonus.
Reflexes: 2+ throughout the upper extremities and 0 knees. 0/2 in AJs. Plantar responses flexor bilaterally.
Sensory: reduced vibration t the toes and preserved at the ankles
Coordination: Intermittent action BL hand tremor, resting chin tremor. No dysmetria
Gait: nonambulatory
Assessment and Plan:
I. Multifactorial encephalopathy (metabolic, toxic, infectious).
II. Action hand tremor
III. Hypomagnesemia
IV. Fever. Phenytoin induced fever is generally occur in one week to 1 month after therapy initiation and is likely the reason of fever based on provide history.
V. Chronic proximal paraparesis(upper lumbar polyradiculopathy?)
-Aspiration precautions.
-Avoid cerebral hypoperfusion, P[place] C[employer] suppressants and anticholinergic medications.
-please check TSH, free T4, vit B12, thiamine, ammonia, CK
-Please obtain medical records from [facility](EEGs)
-ID consult
-Will obtain collateral history from patient's family regarding cognitive baseline.
-DVT prophylaxis.
I personally reviewed all radiology and labs along with past medical records pertinent to current medical problems.
Thank you for allowing us to participate in the care of this patient. We will continue to follow. Please do not hesitate to contact us with any questions or concerns.
Subjective/Objective
Subjective Data
Date of Service: June 29, 2023
Objective Data
Vital Signs
Temp Pulse Resp BP Pulse Ox
36.4 C 105 31 99/52 98
06/29/23 11:21 06/29/23 10:30 06/29/23 10:30 06/29/23 10:30 06/29/23 10:37
Lab Results
06/29/23 03:52
PT 16.9 Sec (11.4-14.6) H 06/28/23 19:19
INR 1.34 06/28/23 19:19
APTT 36.2 Sec (23.4-35.0) H 06/28/23 19:19
Sodium 132 mmol/L (135-145) L 06/29/23 03:52
Potassium 4.6 mmol/L (3.5-5.1) 06/29/23 03:52
BUN 11 mg/dl (7-17) 06/29/23 03:52
Glucose 103 mg/dl (70-99) H 06/29/23 03:52
Calcium 7.4 mg/dl (8.4-10.2) L 06/29/23 03:52
Fyp-J-Scpaobjvpzq Pept 7100 pg/ml 06/29/23 03:52
Patient Allergies
buspirone Allergy (Verified 06/28/23 18:44)
Unknown
ciprofloxacin Allergy (Verified 06/28/23 18:44)
Unknown
Penicillins Allergy (Verified 06/28/23 18:44)
Unknown
Modified [place] Score (MRS)
-
MRS Score:
Medications
-
Active Medications
Generic Name Dose Route Start Last Admin
Trade Name Freq PRN Reason Stop Dose Admin
Acetaminophen 650 mg 06/29/23 01:16 06/29/23 07:50
Acetaminophen 325 Mg Tablet PO 07/27/23 01:15 650 mg
Q4H PRN Administration
mild pain/temp>101
Atorvastatin Calcium 40 mg 06/29/23 01:16 06/29/23 01:49
Atorvastatin (Lipitor) 40 Mg Tablet PO 07/27/23 01:15 Not Given
HS STEFFEN
Cefepime HCl 2,000 mg 06/29/23 02:00 06/29/23 09:53
Cefepime Hcl 2,000 Mg/12.5 Ml Vial IV 2,000 mg
Q8H STEFFEN Administration
Dexamethasone Sodium Phosphate 4 mg 06/29/23 09:00 06/29/23 09:52
Dexamethasone 4 Mg/Ml 1 Ml Vial IV 07/27/23 08:59 4 mg
Q6H STEFFEN Administration
Dextrose 12.5 grams 06/29/23 01:16
Dextrose 50% (0.5 Grams/Ml) 50 Ml Syringe IV 07/27/23 01:15
[id number] PRN
hypoglycemia
Protocol
Enoxaparin Sodium 40 mg 06/29/23 18:00
Enoxaparin Sodium 40 Mg/0.4 Ml Syringe SC 07/27/23 17:59
QPM STEFFEN
Folic Acid 1 mg 06/29/23 08:00 06/29/23 07:50
Folic Acid 1 Mg Tablet PO 07/27/23 07:59 1 mg
DAILY STEFFEN Administration
Gabapentin 600 mg 06/29/23 01:16 06/29/23 07:51
Gabapentin 300 Mg Capsule PO 07/27/23 01:15 600 mg
TID STEFFEN Administration
Glucagon 1 mg 06/29/23 01:16
Glucagon 1 Mg Vial IM 07/27/23 01:15
PRN PRN
hypoglycemia
Protocol
Guaifenesin 1,200 mg 06/29/23 12:00 06/29/23 11:38
Guaifenesin 600 Mg Extended Release Tablet PO 07/27/23 11:59 1,200 mg
Q12 STEFFEN Administration
Hydromorphone HCl 0.5 mg 06/29/23 01:16 06/29/23 10:25
Hydromorphone 0.5 Mg/0.5 Ml Syringe IV 07/13/23 01:15 0.5 mg
Q4HPRN PRN Administration
severe pain
Sodium Chloride 1,000 mls @ 100 mls/hr 06/29/23 01:16 06/29/23 11:38
Nss IV 1,000 mls
.Q10H STEFFEN Administration
Vancomycin HCl 750 mg in 150 mls @ 150 mls/hr 06/29/23 12:00 06/29/23 11:38
Vancocin IV 06/30/23 00:59 150 mls
Q6 STEFFEN Administration
Insulin Aspart 0 units 06/29/23 07:30 06/29/23 08:26
Insulin Aspart Low Resistance 300 Units/3 Ml Pen.Injctr SC 07/27/23 07:29 Not Given
AC STEFFEN
Protocol
Ipratropium Tryon 0.5 mg 06/29/23 14:00
Ipratropium Nebs 0.5 Mg/2.5 Ml Ampul INH 07/27/23 13:59
R TID STEFFEN
Protocol
Ipratropium Tryon 0.5 mg 06/29/23 08:22
Ipratropium Nebs 0.5 Mg/2.5 Ml Ampul INH 07/27/23 08:21
R Q6HPRN PRN
sob or wheezing
Protocol
Levalbuterol HCl 1.25 mg 06/29/23 14:00
Levalbuterol 1.25 Mg/3 Ml Ampul INH 07/27/23 13:59
R TID STEFFEN
Protocol
Levalbuterol HCl 1.25 mg 06/29/23 08:22
Levalbuterol 1.25 Mg/3 Ml Ampul INH 07/27/23 08:21
R Q6HPRN PRN
sob or wheezing
Protocol
Morphine Sulfate 15 mg 06/29/23 20:00
Morphine 15 Mg Extended Release Tablet PO 07/13/23 19:59
BID STEFFEN
Ondansetron HCl 4 mg 06/29/23 01:16
Ondansetron 4 Mg/2 Ml Vial IV 07/27/23 01:15
Q6HPRN PRN
nausea and vomiting
Oxycodone HCl 10 mg 06/29/23 01:16
Oxycodone 15 Mg Regular Release Tablet PO 07/13/23 01:15
Q6H PRN
moderate pain
Phenytoin 200 mg 06/29/23 08:00 06/29/23 07:50
Phenytoin Sodium Extended 100 Mg Capsule PO 07/27/23 07:59 200 mg
DAILY STEFFEN Administration
Sertraline HCl 100 mg 06/29/23 08:00 06/29/23 07:50
Sertraline 25 Mg Tablet PO 07/27/23 07:59 100 mg
DAILY STEFFEN Administration
Sodium Chloride 0 flush 06/28/23 23:00
Sodium Chloride 0.9% (Flush) Syringe IV 07/26/23 22:59
PER PROTOCOL STEFFEN
Sterile Water 10 ml 06/29/23 02:00 06/29/23 09:52
Sterile Water For Injection 10 Ml Vial IV 07/27/23 01:59 10 ml
Q8H STEFFEN Administration
Home Medications
Medication Instructions Recorded
Diclofenac Sodium 1% Gel 1 applic topical QID pain 06/28/23
acetaminophen 325 mg tablet 650 mg PO Q4H PRN mild 06/28/23
(Tylenol) pain/temp>100F
albuterol sulfate 2.5 mg/3 mL 2.5 mg inhalation R Q6HPRN PRN 06/28/23
(0.083 %) solution for nebulization sob/wheezing
atorvastatin 40 mg tablet 40 mg PO HS High Cholesterol 06/28/23
bisacodyl 10 mg rectal suppository 10 mg CO DAILY PRN if MOM is 06/28/23
(Dulcolax (bisacodyl)) ineffective after 24 hrs
calcium acetate 952 mg-aluminum 1 applic topical BID Skin Issues 06/28/23
sulfate 1,347 mg topical powder
packet ([place])
collagenase clostridium histo. 250 1 applic topical DAILY apply to 06/28/23
unit/gram topical ointment sacrum
folic acid 1 mg tablet 1 mg PO DAILY supplement 06/28/23
gabapentin 300 mg capsule 600 mg PO TID pain 06/28/23
magnesium hydroxide 400 mg/5 mL 30 ml PO DAILY PRN if no BM in 3 06/28/23
oral suspension (Milk of Magnesia) days
magnesium oxide 400 mg PO DAILY supplement 06/28/23
morphine 30 mg tablet,extended 30 mg PO BID pain 06/28/23
release
oxycodone 15 mg tablet (Roxicodone) 15 mg PO Q6H PRN wound pain 06/28/23
pantoprazole 40 mg tablet,delayed 40 mg PO DAILY Gastrointestinal 06/28/23
release Issue
phenytoin sodium extended 100 mg 200 mg PO DAILY seizure 06/28/23
capsule
sertraline 25 mg tablet 125 mg PO DAILY Mental 06/28/23
Health/Anxiety
sodium phosphates 19 gram-7 118 ml CO DAILYPRN PRN if dulcolax 06/28/23
gram/118 mL enema (Fleet Enema) is ineffective after 24 hrs
Vital Signs and Labs
-
Vital Signs and Labs:
Vital Signs
Temp Pulse Resp BP Pulse Ox
36.4 C 97 18 102/67 99
06/29/23 11:21 06/29/23 12:00 06/29/23 12:00 06/29/23 12:00 06/29/23 12:32
Lab Results
06/29/23 03:52
PT 16.9 Sec (11.4-14.6) H 06/28/23 19:19
INR 1.34 06/28/23 19:19
APTT 36.2 Sec (23.4-35.0) H 06/28/23 19:19
Sodium 132 mmol/L (135-145) L 06/29/23 03:52
Potassium 4.6 mmol/L (3.5-5.1) 06/29/23 03:52
BUN 11 mg/dl (7-17) 06/29/23 03:52
Glucose 103 mg/dl (70-99) H 06/29/23 03:52
Calcium 7.4 mg/dl (8.4-10.2) L 06/29/23 03:52
Eqp-W-Yffsablqqev Pept 7100 pg/ml 06/29/23 03:52
Home Medications
-
Home Medications
Diclofenac Sodium 1% Gel 1 applic topical QID pain 06/28/23
acetaminophen 325 mg tablet (Tylenol) 650 mg PO Q4H PRN mild pain/temp>100F 06/28/23
albuterol sulfate 2.5 mg/3 mL (0.083 %) solution for nebulization 2.5 mg inhalation R Q6HPRN PRN sob/wheezing 06/28/23
atorvastatin 40 mg tablet 40 mg PO HS High Cholesterol 06/28/23
bisacodyl 10 mg rectal suppository (Dulcolax (bisacodyl)) 10 mg CO DAILY PRN if MOM is ineffective after 24 hrs 06/28/23
calcium acetate 952 mg-aluminum sulfate 1,347 mg topical powder packet ([place]) 1 applic topical BID Skin Issues 06/28/23
collagenase clostridium histo. 250 unit/gram topical ointment 1 applic topical DAILY apply to sacrum 06/28/23
folic acid 1 mg tablet 1 mg PO DAILY supplement 06/28/23
gabapentin 300 mg capsule 600 mg PO TID pain 06/28/23
magnesium hydroxide 400 mg/5 mL oral suspension (Milk of Magnesia) 30 ml PO DAILY PRN if no BM in 3 days 06/28/23
magnesium oxide 400 mg PO DAILY supplement 06/28/23
morphine 30 mg tablet,extended release 30 mg PO BID pain 06/28/23
oxycodone 15 mg tablet (Roxicodone) 15 mg PO Q6H PRN wound pain 06/28/23
pantoprazole 40 mg tablet,delayed release 40 mg PO DAILY Gastrointestinal Issue 06/28/23
phenytoin sodium extended 100 mg capsule 200 mg PO DAILY seizure 06/28/23
sertraline 25 mg tablet 125 mg PO DAILY Mental Health/Anxiety 06/28/23
sodium phosphates 19 gram-7 gram/118 mL enema (Fleet Enema) 118 ml CO DAILYPRN PRN if dulcolax is ineffective after 24 hrs 06/28/23
Medications
-
Medications:
Generic Name Dose Route Start Last Admin
Trade Name Freq PRN Reason Stop Dose Admin
Acetaminophen 650 mg 06/29/23 01:16 06/29/23 07:50
Acetaminophen 325 Mg Tablet PO 07/27/23 01:15 650 mg
Q4H PRN Administration
mild pain/temp>101
Atorvastatin Calcium 40 mg 06/29/23 01:16 06/29/23 01:49
Atorvastatin (Lipitor) 40 Mg Tablet PO 07/27/23 01:15 Not Given
HS STEFFEN
Cefepime HCl 2,000 mg 06/29/23 02:00 06/29/23 09:53
Cefepime Hcl 2,000 Mg/12.5 Ml Vial IV 2,000 mg
Q8H STEFFEN Administration
Dexamethasone Sodium Phosphate 4 mg 06/29/23 09:00 06/29/23 09:52
Dexamethasone 4 Mg/Ml 1 Ml Vial IV 07/27/23 08:59 4 mg
Q6H STEFFEN Administration
Dextrose 12.5 grams 06/29/23 01:16
Dextrose 50% (0.5 Grams/Ml) 50 Ml Syringe IV 07/27/23 01:15
[id number] PRN
hypoglycemia
Protocol
Enoxaparin Sodium 40 mg 06/29/23 18:00
Enoxaparin Sodium 40 Mg/0.4 Ml Syringe SC 07/27/23 17:59
QPM STEFFEN
Folic Acid 1 mg 06/29/23 08:00 06/29/23 07:50
Folic Acid 1 Mg Tablet PO 07/27/23 07:59 1 mg
DAILY STEFFEN Administration
Gabapentin 600 mg 06/29/23 01:16 06/29/23 07:51
Gabapentin 300 Mg Capsule PO 07/27/23 01:15 600 mg
TID STEFFEN Administration
Glucagon 1 mg 06/29/23 01:16
Glucagon 1 Mg Vial IM 07/27/23 01:15
PRN PRN
hypoglycemia
Protocol
Guaifenesin 1,200 mg 06/29/23 12:00 06/29/23 11:38
Guaifenesin 600 Mg Extended Release Tablet PO 07/27/23 11:59 1,200 mg
Q12 STEFFEN Administration
Hydromorphone HCl 0.5 mg 06/29/23 01:16 06/29/23 10:25
Hydromorphone 0.5 Mg/0.5 Ml Syringe IV 07/13/23 01:15 0.5 mg
Q4HPRN PRN Administration
severe pain
Sodium Chloride 1,000 mls @ 100 mls/hr 06/29/23 01:16 06/29/23 11:38
Nss IV 1,000 mls
.Q10H STEFFEN Administration
Vancomycin HCl 750 mg in 150 mls @ 150 mls/hr 06/29/23 12:00 06/29/23 11:38
Vancocin IV 06/30/23 00:59 150 mls
Q6 STEFFEN Administration
Insulin Aspart 0 units 06/29/23 07:30 06/29/23 08:26
Insulin Aspart Low Resistance 300 Units/3 Ml Pen.Injctr SC 07/27/23 07:29 Not Given
AC STEFFEN
Protocol
Ipratropium Tryon 0.5 mg 06/29/23 14:00
Ipratropium Nebs 0.5 Mg/2.5 Ml Ampul INH 07/27/23 13:59
R TID STEFFEN
Protocol
Ipratropium Tryon 0.5 mg 06/29/23 08:22
Ipratropium Nebs 0.5 Mg/2.5 Ml Ampul INH 07/27/23 08:21
R Q6HPRN PRN
sob or wheezing
Protocol
Levalbuterol HCl 1.25 mg 06/29/23 14:00
Levalbuterol 1.25 Mg/3 Ml Ampul INH 07/27/23 13:59
R TID STEFFEN
Protocol
Levalbuterol HCl 1.25 mg 06/29/23 08:22
Levalbuterol 1.25 Mg/3 Ml Ampul INH 07/27/23 08:21
R Q6HPRN PRN
sob or wheezing
Protocol
Morphine Sulfate 15 mg 06/29/23 20:00
Morphine 15 Mg Extended Release Tablet PO 07/13/23 19:59
BID STEFFEN
Ondansetron HCl 4 mg 06/29/23 01:16
Ondansetron 4 Mg/2 Ml Vial IV 07/27/23 01:15
Q6HPRN PRN
nausea and vomiting
Oxycodone HCl 10 mg 06/29/23 01:16
Oxycodone 15 Mg Regular Release Tablet PO 07/13/23 01:15
Q6H PRN
moderate pain
Phenytoin 200 mg 06/29/23 08:00 06/29/23 07:50
Phenytoin Sodium Extended 100 Mg Capsule PO 07/27/23 07:59 200 mg
DAILY STEFFEN Administration
Sertraline HCl 100 mg 06/29/23 08:00 06/29/23 07:50
Sertraline 25 Mg Tablet PO 07/27/23 07:59 100 mg
DAILY STEFFEN Administration
Sodium Chloride 0 flush 06/28/23 23:00
Sodium Chloride 0.9% (Flush) Syringe IV 07/26/23 22:59
PER PROTOCOL STEFFEN
Sterile Water 10 ml 06/29/23 02:00 06/29/23 09:52
Sterile Water For Injection 10 Ml Vial IV 07/27/23 01:59 10 ml
Q8H STEFFEN Administration
[2023-06-29 12:33] LABS: Glucose - Point of Care 174 mg/dl (70-99)
--- NOTE | 2023-06-29 12:38 | PTCARENOTE ---
This morning patient yelling out frequently. When asked why she was yelling she reported that she could not breathe. Pt's SPO2 WNL but increased to 10L for comfort. Pt restless in bed, attempting to move herself up. TT to RT for PRN breathing
treatment. TT to as patient is also tachycardic, hypotensive, restless. While standing right next to patient, she continued to yell out and when asked why, patient reported 'I can't help it.' Pt had cooling blanket on and pt reported she
was cold. Education provided on cooling blanket and fever. Pt voiced understanding but then few minutes later would yell out and say she was cold again. Later in the evening, pt reports ' I don't remember honey, I'm sorry.' Pt reported pain to her R
hip and leg, medicated with PRN Dilaudid. Patient able to drink water and coffee and ate jello this morning.
Currently temperature WNL, cooling blanket is off. Pt's O2 tapered to 4L NC. BP and HR improved. Assessment, care and VS as charted.
[2023-06-29 12:48] LABS: Glycohemoglobin (HgbA1c) 5.2 % (4.0-5.6)
[2023-06-29 13:02] LABS: Dilantin < 3.0 ug/ml (10-20)
[2023-06-29] MEDS: XOPENEX 1.25 MG INHALANT SOLUTION INH ×2 (14:14→20:10)
[2023-06-29] MEDS: ATROVENT NEBULES 0.5 MG INH ×2 (14:14→20:10)
--- NOTE | 2023-06-29 14:28 | W.PN.HOSP.TC ---
Today's Communication/Plan
-
Monitor vital signs and see plan
Wean oxygen as tolerated
Monitor blood pressure, continue with fluids for now
Monitor urine output
Follow fever curve
Neurology to see
Continue with antibiotics for now
follow cultures
awaiting records
Assessment / Plan
Assessment / Plan
General: no acute distress
HEENT: dry MM
Respiratory: Other (Decreased at bases - otherwise clear.)
Cardiac: S1/S2 and Regular Rhythm; No Murmur
GI: Other (Morbidly obese.� Mild lower abdominal tenderness.� No rebound / guarding.� Pos BS.)
Musculoskeletal: No Clubbing, No Cyanosis and Other (Induration and increased warmth over the R greater trochanter / hip region.� Pos tenderness.� No appreciable fluctuance.)
Skin: Other (Stage III sacral decub wth some surrounding induration / erythema.)
Neuro: Awake and Alert; No Oriented
Psych: Confused
Sepsis / Fever
�- Multiple potential sources including pulmonary (L base pneumonia), (CAUTI), Skin (sacral decub)
Suspect some toxic metabolic encephalopathy secondary to above
�- Continue broad spectrum abx for now with vanco and cefepime. ID following
another source could be 2/2 phenytoin. Per patient she has been on phenytoin for atleast a year 2/2 seizure. check phenytoin level; neurology eval to see if can be switched to another antiepileptic
�- Follow-up imaging and culture results and adjust treatment plan as appropriate.
follow fever curve
�- Obtain records from [facility] to shed light on recent hospitalization, culture data, lab values, etc.
�- Check CPK, ESR, etc.� Consider Ortho evaluation depending on results of labs / hip imaging / etc.
cw clears for now given TME
LLL Pneumonia
Acute on Chronic Hypoxemic Respiratory Failure; on 3 L chronic o2
COPD with possible Acute Exacerbation
start standing and prn nebs; start IV decadron
�- CXR with possible L base pneumonia and small effusion.
�- IV abx as noted above.
Chronic Indwelling Mota Catheter
CAUTI
�- UA consistent with infection.� IV abx as noted above.
�- Follow-up culture data.
�- Mota exchanged in the ED
Hyponatremia
Monitor
Hypomagnesemia
Monitor,replete
elevated bnp
per patient hx of CHF; unknown EF
used to be on lasix but now stopped
Stage III Sacral Decubitus Ulcer
�- ? associated cellulitis
�- IV abx as noted above.
�- Wound care evaluation for local care.
Avascular Necrosis of the Right Hip
�- Unclear chronicity of this condition.� Patient complains of pain at present and surrounding induration / increased warmth in tissues overlying the hip.
�- Check x-rays to start, ESR, CPK, etc as notd above.
�- IV abx as noted above.
�- Depending on imaging results - ? Ortho eval
Abnormal LFTs
monitor
Anemia of Chronic Disease
�- Unknown baseline.� Follow-up recent records from [facility] for comparison.
�- No evidence of active bleeding at present.
�- Check iron studies.� Follow H&H for any changes.
Hyponatremia
�- Reportedly chronic hyponatremia by diagnosis list.
�- Check urine studies.� IVFs overnight and follow for changes in lytes.
Seizure Disorder
�- Unknown history, most recent seizure, etc.
�- Continue phenytoin and follow for any breakthrough seizures.
Benign Hypertension
DM-II
�- Patient has both listed diagnoses, but on no medications for either.
�- Follow BP / glucose.
�- Cover with SSI as needed.� A1C 5.2
Chronic Pain Syndrome
Chronic Opioid Dependence
Chronic Bed-Bound Status
�- Continue usual BID morphine; decrease dose
�- Continue oxycodone PRN - but at decreased dosing.
�- PT / OT evaluations.
�- ? etiology of bed-bound nature (? avascular necrosis). per patient its her right hip that she needs surgery and her neuropathy
Morbid Obesity due to excess calories / immobility
�- Affects all aspects of care.
�- This bed-bound 62y F will not be able to effect significant changes in diet or exercise to realize significant weight loss.
DVT Prophylaxis:� Lovenox
Code Status:� Full
I spent a total of 54 minutes with the patient or on the floor. More than 50% of this time involved counseling and coordination of care.
Anticipated Discharge: > 48 hours
Subjective/Interval History
-
Date of Service: June 29, 2023
does have some sob
Objective Data
-
Labs:
Laboratory Results
06/29/23
03:52
WBC Pending
Hgb Pending
Hct Pending
Plt Count Pending
Sodium 132 L
Potassium 4.6
Chloride 107
Carbon Dioxide 22
BUN 11
Creatinine 0.7
Glucose 103 H
Calcium 7.4 L
Total Bilirubin 0.6
AST 206 H
ALT 41 H
Alkaline Phosphatase 284 H
Vital Signs:
Vital Signs
Temp Pulse Resp BP Pulse Ox
97.5 F 89 19 106/82 98
06/29/23 11:21 06/29/23 14:17 06/29/23 14:17 06/29/23 14:00 06/29/23 14:17
I&O
06/28/23 06/29/23 06/30/23
06:59 06:59 06:59
Intake Total 600 / 600
Balance 600 / 600
[2023-06-29 14:44] LABS: Hematocrit 23.3 % (37.0-47.0); Hemoglobin 7.3 g/dL (12.0-16.0); Mean Corp Hgb Conc. 31.3 g/dL (33.0-37.0); Mean Corpuscular Hgb 29.6 pg (27.0-31.0); Mean Corpuscular Volume 94.3 fL (81.0-99.0); Mean Platelet Volume 9.6 fL (7.4-10.4); Platelet Count 265 10^3/uL (130-400); Red Blood Cell Count 2.47 10^6/uL (4.20-5.40); Red Cell Dist. Width 15.5 % (11.5-14.5); White Blood Cell Count 4.8 10^3/uL (4.8-10.8)
[2023-06-29] MEDS: NOVOLOG FLEXPEN-LOW RESISTANCE 1 UNITS SC ×2 (14:46→17:23)
--- NOTE | 2023-06-29 15:40 | CARDSERVLU ---
Echocardiogram with Lumason completed after protocol screening completed. Allergies verified.
Patent IV site: __L AC___
IV site flushed with 0.9% NaCl pre and post administration.
Diluted bolus method utilized to enhance visualization of ventricular rangel.
Total volume given: __2.5__ mL
Patient tolerated all procedures well without complications.
--- NOTE | 2023-06-29 16:45 | PTCARENOTE ---
TT to for low BP. Pt 83/74 at this time. Pt up to see patient for possible blood consent. Morning hgb was 7.3. Repeat CBC and type and screen pending. Patient also due for Hip XR at this time but unable to send sec to hypotension. No new
orders at this time.
[2023-06-29 16:58] LABS: Hematocrit 23.8 % (37.0-47.0); Hemoglobin 7.4 g/dL (12.0-16.0); Mean Corp Hgb Conc. 31.1 g/dL (33.0-37.0); Mean Corpuscular Hgb 29.4 pg (27.0-31.0); Mean Corpuscular Volume 94.4 fL (81.0-99.0); Mean Platelet Volume 9.6 fL (7.4-10.4); Platelet Count 189 10^3/uL (130-400); Red Blood Cell Count 2.52 10^6/uL (4.20-5.40); Red Cell Dist. Width 15.4 % (11.5-14.5); White Blood Cell Count 3.4 10^3/uL (4.8-10.8)
[2023-06-29 17:33] LABS: Glucose - Point of Care 154 mg/dl (70-99)
[2023-06-29] MEDS: LOVENOX 40 MG SC (17:33)
[2023-06-29] MEDS: MS CONTIN (EXTENDED RELEASE) 15 MG PO (19:33)
[2023-06-29] MEDS: LIPITOR 40 MG PO (21:06)
--- NOTE | 2023-06-29 21:33 | W.PN.UPDATE ---
Update Note
Progress Note Update
Patient remains hypotensive with MAP < 65, order placed for 1 Liter NSS IV bolus, bolus was ineffective. Patient with history of CHF, order placed for Levophed to maintain MAP >65.
[2023-06-29 21:46] LABS: Glucose - Point of Care 144 mg/dl (70-99)
[2023-06-29] MEDS: LEVOPHED 250 IV (23:09)
[2023-06-30] VITALS (32 sets, daily range): BP systolic 79–130; BP diastolic 52–113; PULSE 87–89; O2SAT 99; BMI 41.7
[2023-06-30] MEDS: MAXIPIME 2000 MG IV ×3 (02:33→17:28)
[2023-06-30] MEDS: DILAUDID 0.5 MG IV ×4 (02:33→21:04)
[2023-06-30] MEDS: STERILE WATER FOR INJECTION 10 ML IV ×3 (02:33→17:28)
[2023-06-30] MEDS: DECADRON 4 MG IV ×4 (02:33→20:36)
[2023-06-30] MEDS: XOPENEX 1.25 MG INHALANT SOLUTION INH ×4 (04:35→19:25)
[2023-06-30 04:47] LABS: % Basophils 0.4 % (0-2); % Eosinophils 0.2 % (0-6); % Immature Granulocytes 0.2 % (0-0.5); % Lymphocytes 12.4 % (20.5-51.1); % Monocytes 2.9 % (1.7-9.3); % Neutrophils 83.9 % (42.2-75.2); Absolute Lymphocytes 0.6 10^3/uL (1.2-3.4); Absolute Monocytes 0.1 10^3/uL (0.1-0.6); Absolute Neutrophils 4.1 10^3/uL (1.4-6.5); Hematocrit 26.2 % (37.0-47.0); Hemoglobin 8.2 g/dL (12.0-16.0); Mean Corp Hgb Conc. 31.3 g/dL (33.0-37.0); Mean Corpuscular Hgb 29.1 pg (27.0-31.0); Mean Corpuscular Volume 92.9 fL (81.0-99.0); Mean Platelet Volume 9.5 fL (7.4-10.4); Nucleated Red Blood Cells % 0 %; Platelet Count 241 10^3/uL (130-400); Red Blood Cell Count 2.82 10^6/uL (4.20-5.40); Red Cell Dist. Width 15.3 % (11.5-14.5); White Blood Cell Count 4.9 10^3/uL (4.8-10.8)
[2023-06-30 05:19] LABS: Vancomycin Random 22.9 ug/ml
[2023-06-30 05:40] LABS: ALT (SGPT) 47 U/L (0-35); AST (SGOT) 141 U/L (14-36); Albumin 2.4 g/dl (3.5-5.0); Alkaline Phosphatase 282 U/L (38-126); Blood Urea Nitrogen 19 mg/dl (7-17); Calcium 7.7 mg/dl (8.4-10.2); Carbon Dioxide 19 mmol/L (22-30); Chloride 103 mmol/L (98-107); Estimated Creatinine Clearance > 125 ml/min; Glucose 147 mg/dl (70-99); Potassium 4.2 mmol/L (3.5-5.1); Sodium 132 mmol/L (135-145); Total Bilirubin 0.7 mg/dl (0.2-1.3); Total Protein 5.3 g/dl (6.3-8.2); eGFR > 60.00
--- NOTE | 2023-06-30 06:06 | PTCARENOTE ---
assumed care of patient, pt AAOx3- more with it this shift but with periods of forgetfulness and calling out screaming. pt with low BP's in beginning of shift, x1 bolus given without response. 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
MAP >65. currently at 4mcg/min. sacrum dressing changed, saturated with serosang fluid. pt medicated with PRN dilaudid for hip and sacrum pain. olivares intact. care ongoing.
[2023-06-30] MEDS: ATROVENT NEBULES 0.5 MG INH ×3 (07:15→19:26)
[2023-06-30] MEDS: ZOLOFT 100 MG PO (08:01)
[2023-06-30] MEDS: MUCINEX 1200 MG PO ×2 (08:01→20:36)
[2023-06-30] MEDS: MS CONTIN (EXTENDED RELEASE) 15 MG PO ×2 (08:01→20:36)
[2023-06-30] MEDS: NEURONTIN 600 MG PO ×3 (08:01→21:04)
[2023-06-30] MEDS: DILANTIN 200 MG PO (08:01)
[2023-06-30] MEDS: FOLVITE 1 MG PO (08:01)
[2023-06-30] MEDS: NOVOLOG FLEXPEN-LOW RESISTANCE SC ×3 (08:02→18:21)
[2023-06-30] MEDS: ATIVAN 0.5 MG PO ×2 (08:02→22:19)
[2023-06-30 08:11] LABS: Glucose - Point of Care 140 mg/dl (70-99)
[2023-06-30] MEDS: NSS 1000 IV (08:46)
--- NOTE | 2023-06-30 09:05 | PTCARENOTE ---
Addendum entered by Jimenez Ness RN 06/30/23 15:10:
Levo @ 4mcg/min MAP >65, attempting to wean.
Original Note:
Patient received from security shift supervisor. Patient resting comfortably in bed. AAOx3, VSS. Patient slightly tearful with some complaints of pain mostly in legs. Also with complaints of anxiety. Wound care done overnight, will continue to assess for
need to change. Call schaffer in reach.
--- NOTE | 2023-06-30 10:31 | W.PN.ID1 ---
Date of Service
Date of Service: June 30, 2023
Today's Communication
DC Vancomycin.
Continue cefepime.
Assessment / Plan
# High fever/hyperthermia up to 106F, improving
# Hypotension
-Neuro doesn't deem phenytoin as source of fever.
- Bcx's x2 neg to date.
- Ucx from olivares: +yeast (no significance)
- CXR: small L pleural effusion with atelectasis vs PNA
Can check procalcitonin on am.
-Continue empiric cefepime for now.
- Follow temps.
# Pruritus without rash
- DC Vancomycin and monitor for improvment
- Ordered benadryl prn.
# Exacerbation COPD on chronic O2
-Currently on dexamethasone
# Elevated LFT's - stable (unclear acute vs chronic)
- Awaiting records from [facility]
# chronic sacral decubitus - clean w/o infection
# Chronic right hip pain avascular necrosis of hip
# Troponin. TTE: EF 30-35%
#Additional Past Medical History:
DM2
Morbid Obesity
DANIEL
COPD
Chronic Hypoxemic Respiratory Failure on Home O2
CAD
Anxiety / Depression
Avascular Necrosis R Femoral Head
Chronic olivares
Chronic Pain / Chronic Opioid Dependence
Seizure Disorder
Bedbound
Chief Complaint
-: Fever
Subjective / Review of Systems
c/o diffuse itching, no rash.
has chest tightness. nonproductive cough.
Vital Signs / Physical Exam
Vital Signs
Vital Signs
Temp Pulse Resp BP Pulse Ox
98.1 F 76 16 97/70 100
06/30/23 07:20 06/30/23 07:18 06/30/23 07:18 06/30/23 06:00 06/30/23 07:18
Selected Entries
06/29/23
20:08
Temp 100.4 F H
Physical Exam
Constitutional: No Acute Distress, Comfortable and Obese
Eyes: Sclera Anicteric
Cardiovascular: Regular Rate and S1/S2
Pulmonary: Other (decrease airway movement)
Gastrointestinal: Soft, Non Tender, Non Distended and Normal Bowel Sounds
Genito-Urinary: Negative CVA Tenderness
Neurological: AO x 3
Objective Data
Lab Data
Lab Results
06/30/23 04:38
06/30/23 04:38
ESR 59 mm/hour (0-20) H 06/28/23 21:36
PT 16.9 Sec (11.4-14.6) H 06/28/23 19:19
INR 1.34 06/28/23 19:19
APTT 36.2 Sec (23.4-35.0) H 06/28/23 19:19
Estimated Creat Clear > 125 ml/min 06/30/23 04:38
Lactic Acid Cancelled 06/28/23 23:15
Total Bilirubin 0.7 mg/dl (0.2-1.3) 06/30/23 04:38
AST 141 U/L (14-36) H 06/30/23 04:38
ALT 47 U/L (0-35) H 06/30/23 04:38
Alkaline Phosphatase 282 U/L (38-126) H 06/30/23 04:38
Most recent labs reviewed.
Micro Results:
06/28/23 19:19 Urine Culture - Final
Urine Yeast
06/29/23 03:52 MRSA Screen - Final
Nose No Methicillin Resistant Staphylococcus aureus isolated.
06/28/23 19:19 Blood Culture - Preliminary
Blood/Venous No Growth in 24 hours- Final report to follow
06/28/23 19:19 Blood Culture - Preliminary
Blood/Venous No Growth in 24 hours- Final report to follow
06/29/23 10:13 Legionella Urinary Antigen - Final
Urine Negative for Legionella pneumophila Serogroup 1 antigen.
A negative result does not rule out the possiblity of
Legionella infection due to other serogroups or species of
Legionella. Clinical correlation is recommended.
Streptococcus pneumoniae Antigen (M - Final
Negative for Streptococcus pneumoniae antigen.
A negative result does not exclude infection with
Streptococcus pneumoniae. Clinical correlation is
recommended.
06/28/23 19:19 Influenza Types A & B (AB) - Final
Nasal Swab Negative for Influenza A & B, NAAT
Negative results must be combined with clinical observations
and patient history.
Nucleic Acid Amplification test (NAAT)performed on the
[employer] platform.
06/28/23 19:19 Respiratory Syncytial Virus Culture - Final
Nasal Swab Negative for Respiratory Syncytial Virus.
A false negative result may be obtained with a specimen
collected early in the acute phase. If symptoms persist, a
new specimen should be tested.
06/28/23 CXR: Small left pleural effusion with associated atelectasis and/or pneumonia.
[2023-06-30] MEDS: BENADRYL 25 MG PO (11:34)
[2023-06-30] MEDS: TYLENOL 650 MG PO ×3 (11:34→20:36)
[2023-06-30 12:20] LABS: Ammonia < 9 umol/L (9-30)
[2023-06-30 12:28] LABS: Troponin I 0.085 ng/ml
[2023-06-30 12:29] LABS: Creatine Phosphokinase 75 U/L (30-135)
--- NOTE | 2023-06-30 12:32 | W.PN.NEURO.1 ---
Today's Communication / Plan
-
.
Subjective/Objective
Subjective Data
Date of Service: June 30, 2023
24h events: Fever of 38.0 in the morning, hypotensive down to 87/54 (received Levophed), saturating well on 2 L of mid flow nasal cannula. Continues to be on cefepime, dexamethasone
Ms. Cbaa reports no complaints.
Ammonia, CK-normal, vit B12, TSH-pending. ESR-59, Na 132.
MAR: Hydromorphone 0.5 mg administered at 09/08 AM today
PMH: Chronic pain syndrome on opioid therapy, ambulatory dysfunction, chronic hypoxic respiratory failure/COPD, DANIEL, CAD, HTN, DLP, DM, MDD, GERD, anemia, Avascular Necrosis R Femoral Head
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
FH:not contributory
All: cipro, buspirone, PNC
ROS:Constitutional: Negative. Negative for chills, fever and unexpected weight change.
HENT: Negative for ear pain, hearing loss, tinnitus and trouble swallowing.
Eyes: Negative. Negative for photophobia, pain and visual disturbance.
Respiratory: Negative for cough, choking and shortness of breath.
Cardiovascular: Negative for chest pain, palpitations and leg swelling.
Gastrointestinal: Negative for abdominal pain and vomiting.
Endocrine: Negative. Negative for cold intolerance.
Genitourinary: positive for chronic UI
Musculoskeletal: positive for arthralgias (chronic right hip pain)
Skin: Negative for rash.
Allergic/Immunologic: Negative. Negative for immunocompromised state.
Neurological: positive for tremors, leg weakness
Psychiatric/Behavioral: positive for transient confusion.
�
�
General: Well developed. In no acute distress.
Cardio: Regular rate and rhythm without murmur. Extremities are without cyanosis or edema.
Neuro:
Mental Status: Alert, oriented to self, person, place, month, year. Mildly impaired attention and recall.� Labile mood. Good fund of knowledge. Follows complex requests across the midline.� Comprehension, naming, and repetition intact.�
Cranial Nerves: Pupils are equally round and reactive to light.� EOMs full.� Visual garrett full to confrontation.� No ptosis.� No nystagmus.� V1-V3 intact to light touch and pinprick bilaterally, symmetric.� Face symmetric.� Normal hearing AU.� The
palate elevated well.� SCMs and traps 5/5.� Tongue midline.� No dysarthria.
Motor:� � � � Normal bulk and tone.� No pronator or arm drift.� Strength 5/5 throughout, except for proximal leg weakness 1/5. Distal strength-5-/5 No clonus.
Coordination: Intermittent action BL hand tremor, resting chin tremor. No dysmetria
Gait: � � � nonambulatory
Spiral test-positive
Assessment and Plan:
�
I. Multifactorial encephalopathy (metabolic, toxic, infectious), clinically stable
II. Action hand tremor, likely medication induced
III. Hypomagnesemia
IV. Fever. Phenytoin induced fever is generally occur in one week to 1 month after therapy initiation and is likely the reason of fever based on provide history.
V. Chronic proximal paraparesis(upper lumbar polyradiculopathy?)
-Aspiration precautions.
-Reduced opioids use
-please check TSH, free T4, vit B12
-Please obtain medical records from [facility](EEGs)
-DVT prophylaxis.
�
�
I personally reviewed all radiology and labs along with past medical records pertinent to current medical problems.
�
Thank you for allowing us to participate in the care of this patient. We will continue to follow. Please do not hesitate to contact us with any questions or concerns.
�
Objective Data
Vital Signs
Temp Pulse Resp BP Pulse Ox
38.0 C H 76 16 97/70 99
06/30/23 11:44 06/30/23 07:18 06/30/23 07:18 06/30/23 06:00 06/30/23 12:24
Lab Results
06/30/23 04:38
06/30/23 04:38
PT 16.9 Sec (11.4-14.6) H 06/28/23 19:19
INR 1.34 06/28/23 19:19
APTT 36.2 Sec (23.4-35.0) H 06/28/23 19:19
Sodium 132 mmol/L (135-145) L 06/30/23 04:38
Potassium 4.2 mmol/L (3.5-5.1) 06/30/23 04:38
BUN 19 mg/dl (7-17) H 06/30/23 04:38
Glucose 147 mg/dl (70-99) H 06/30/23 04:38
Calcium 7.7 mg/dl (8.4-10.2) L 06/30/23 04:38
Kqp-O-Yvrgqwyjvih Pept 7100 pg/ml 06/29/23 03:52
Patient Allergies
buspirone Allergy (Verified 06/28/23 18:44)
Unknown
ciprofloxacin Allergy (Verified 06/28/23 18:44)
Unknown
Penicillins Allergy (Verified 06/28/23 18:44)
Unknown
Modified Kandi Score (MRS)
-
MRS Score:
Medications
-
Medications:
Generic Name Dose Route Start Last Admin
Trade Name Freq PRN Reason Stop Dose Admin
Acetaminophen 650 mg 06/29/23 01:16 06/30/23 11:34
Acetaminophen 325 Mg Tablet PO 07/27/23 01:15 650 mg
Q4H PRN Administration
mild pain/temp>101
Atorvastatin Calcium 40 mg 06/29/23 01:16 06/29/23 21:06
Atorvastatin (Lipitor) 40 Mg Tablet PO 07/27/23 01:15 40 mg
HS STEFFEN Administration
Cefepime HCl 2,000 mg 06/29/23 02:00 06/30/23 09:59
Cefepime Hcl 2,000 Mg/12.5 Ml Vial IV 2,000 mg
Q8H STEFFEN Administration
Dexamethasone Sodium Phosphate 4 mg 06/29/23 09:00 06/30/23 09:59
Dexamethasone 4 Mg/Ml 1 Ml Vial IV 07/27/23 08:59 4 mg
Q6H STEFFEN Administration
Dextrose 12.5 grams 06/29/23 01:16
Dextrose 50% (0.5 Grams/Ml) 50 Ml Syringe IV 07/27/23 01:15
[id number] PRN
hypoglycemia
Protocol
Diphenhydramine HCl 25 mg 06/30/23 10:18
Diphenhydramine 25 Mg Capsule PO 07/28/23 10:17
Q4HPRN PRN
Itching
Enoxaparin Sodium 40 mg 06/29/23 18:00 06/29/23 17:33
Enoxaparin Sodium 40 Mg/0.4 Ml Syringe SC 07/27/23 17:59 40 mg
QPM STEFFEN Administration
Folic Acid 1 mg 06/29/23 08:00 06/30/23 08:01
Folic Acid 1 Mg Tablet PO 07/27/23 07:59 1 mg
DAILY STEFFEN Administration
Gabapentin 600 mg 06/29/23 01:16 06/30/23 08:01
Gabapentin 300 Mg Capsule PO 07/27/23 01:15 600 mg
TID STEFFEN Administration
Glucagon 1 mg 06/29/23 01:16
Glucagon 1 Mg Vial IM 07/27/23 01:15
PRN PRN
hypoglycemia
Protocol
Guaifenesin 1,200 mg 06/29/23 12:00 06/30/23 08:01
Guaifenesin 600 Mg Extended Release Tablet PO 07/27/23 11:59 1,200 mg
Q12 STEFFEN Administration
Hydromorphone HCl 0.5 mg 06/29/23 01:16 06/30/23 09:08
Hydromorphone 0.5 Mg/0.5 Ml Syringe IV 07/13/23 01:15 0.5 mg
Q4HPRN PRN Administration
severe pain
Norepinephrine Bitartrate 4 mg in 250 mls @ 0 mls/hr 06/29/23 23:00 06/29/23 23:09
Levophed IV 250 mls
PER PROTOCOL STEFFEN Administration
Protocol
Per Protocol
Insulin Aspart 0 units 06/29/23 07:30 06/30/23 08:02
Insulin Aspart Low Resistance 300 Units/3 Ml Pen.Injctr SC 07/27/23 07:29 Not Given
AC STEFFEN
Protocol
Ipratropium [place]ley 0.5 mg 06/29/23 14:00 06/30/23 07:15
Ipratropium Nebs 0.5 Mg/2.5 Ml Ampul INH 07/27/23 13:59 0.5 mg
R TID STEFFEN Administration
Protocol
Ipratropium Baxley 0.5 mg 06/29/23 08:22
Ipratropium Nebs 0.5 Mg/2.5 Ml Ampul INH 07/27/23 08:21
R Q6HPRN PRN
sob or wheezing
Protocol
Levalbuterol HCl 1.25 mg 06/29/23 14:00 06/30/23 07:15
Levalbuterol 1.25 Mg/3 Ml Ampul INH 07/27/23 13:59 1.25 mg
R TID STEFFEN Administration
Protocol
Levalbuterol HCl 1.25 mg 06/29/23 08:22 06/30/23 04:35
Levalbuterol 1.25 Mg/3 Ml Ampul INH 07/27/23 08:21 1.25 mg
R Q6HPRN PRN Administration
sob or wheezing
Protocol
Morphine Sulfate 15 mg 06/29/23 20:00 06/30/23 08:01
Morphine 15 Mg Extended Release Tablet PO 07/13/23 19:59 15 mg
BID STEFFEN Administration
Ondansetron HCl 4 mg 06/29/23 01:16
Ondansetron 4 Mg/2 Ml Vial IV 07/27/23 01:15
Q6HPRN PRN
nausea and vomiting
Oxycodone HCl 10 mg 06/29/23 01:16
Oxycodone 15 Mg Regular Release Tablet PO 07/13/23 01:15
Q6H PRN
moderate pain
Phenytoin 200 mg 06/29/23 08:00 06/30/23 08:01
Phenytoin Sodium Extended 100 Mg Capsule PO 07/27/23 07:59 200 mg
DAILY STEFFEN Administration
Sertraline HCl 100 mg 06/29/23 08:00 06/30/23 08:01
Sertraline 25 Mg Tablet PO 07/27/23 07:59 100 mg
DAILY STEFFEN Administration
Sodium Chloride 0 flush 06/28/23 23:00
Sodium Chloride 0.9% (Flush) Syringe IV 07/26/23 22:59
PER PROTOCOL STEFFEN
Sterile Water 10 ml 06/29/23 02:00 06/30/23 09:59
Sterile Water For Injection 10 Ml Vial IV 07/27/23 01:59 10 ml
Q8H STEFFEN Administration
[2023-06-30 12:50] LABS: Glucose - Point of Care 146 mg/dl (70-99)
--- NOTE | 2023-06-30 14:04 | W.PN.HOSP.TC ---
Today's Communication/Plan
-
Current monitor vital signs see plan
Wean oxygen as tolerated
Continue with antibiotics
Follow fever curve
Cardiology evaluation
Follow cultures
Called daughter, left voicemail
Awaiting records from [place]
Assessment / Plan
Assessment / Plan
General: no acute distress
HEENT: dry MM
Respiratory: Other (Decreased at bases - otherwise clear.)
Cardiac: S1/S2 and Regular Rhythm; No Murmur
GI: Other (Morbidly obese.� Mild lower abdominal tenderness.� No rebound / guarding.� Pos BS.)
Musculoskeletal: No Clubbing, No Cyanosis and Other (Induration and increased warmth over the R greater trochanter / hip region.� Pos tenderness.� No appreciable fluctuance.)
Skin: Other (Stage III sacral decub wth some surrounding induration / erythema.)
Neuro: Awake and Alert; No Oriented
Psych: Confused
Suspected septic shock
�- Multiple potential sources including pulmonary (L base pneumonia), (CAUTI), Skin (sacral decub)
Suspect some toxic metabolic encephalopathy secondary to above
now on levophed
�-Now on Cefipime. ID following
Evaluated by neurology who does not think the fevers are from phenytoin
follow fever curve
�- Obtain records from [facility] to shed light on recent hospitalization, culture data, lab values, etc.
�-hip x-rays were ordered however patient refused
advance diet to fulls
ammonia wnl; B1 pending, normal CK
LLL Pneumonia
Acute on Chronic Hypoxemic Respiratory Failure; on 3 L chronic o2
COPD with possible Acute Exacerbation
started standing and prn nebs; started IV decadron
�- CXR with possible L base pneumonia and small effusion.
�- IV abx as noted above.
Mild troponin elevation likely non-AR related
Monitor
Chronic Indwelling Mota Catheter
CAUTI
�- UA consistent with infection.� IV abx as noted above.
�- Follow-up culture data.
�- Mota exchanged in the ED
Hyponatremia
Monitor
Hypomagnesemia
Monitor
elevated bnp
per patient unknown if hx of CHF; unknown EF
used to be on lasix but now stopped
Echo 06/29 with EF 30-35%; global hypokinesis; cardiology evaluation
Stage III Sacral Decubitus Ulcer
�- ? associated cellulitis
�- IV abx as noted above.
�- Wound care evaluation for local care.
Avascular Necrosis of the Right Hip
�- Unclear chronicity of this condition.� Patient complains of pain at present and surrounding induration / increased warmth in tissues overlying the hip.
�xrays were ordered however patient refused
Suspect severe anxiety
ativan prn
Abnormal LFTs
monitor
Anemia of Chronic Disease
�- Unknown baseline.� Follow-up recent records from [facility] for comparison.
�- No evidence of active bleeding at present.
Seizure Disorder
�- Unknown history, most recent seizure, etc.
�- Continue phenytoin and follow for any breakthrough seizures.
Benign Hypertension
DM-II
�- Patient has both listed diagnoses, but on no medications for either.
�- Follow BP / glucose.
�- Cover with SSI as needed.� A1C 5.2
Chronic Pain Syndrome
Chronic Opioid Dependence
Chronic Bed-Bound Status
�- Continue usual BID morphine; decrease dose
�- Continue oxycodone PRN - but at decreased dosing.
�- PT / OT evaluations.
�- ? etiology of bed-bound nature (? avascular necrosis). per patient its her right hip that she needs surgery and her neuropathy
Morbid Obesity due to excess calories / immobility
�- Affects all aspects of care.
�- This bed-bound 62y F will not be able to effect significant changes in diet or exercise to realize significant weight loss.
DVT Prophylaxis:� Lovenox
Code Status:� Full
I spent a total of 55 minutes with the patient or on the floor. More than 50% of this time involved counseling and coordination of care.
Anticipated Discharge: > 48 hours
Subjective/Interval History
-
Date of Service: June 30, 2023
Site still having fever
Objective Data
-
Labs:
Laboratory Results
06/30/23
04:38
WBC 4.9
Hgb 8.2 L
Hct 26.2 L
Plt Count 241 D
Sodium 132 L
Potassium 4.2
Chloride 103
Carbon Dioxide 19 L
BUN 19 H
Creatinine 0.5 L
Glucose 147 H
Calcium 7.7 L
Total Bilirubin 0.7
AST 141 H
ALT 47 H
Alkaline Phosphatase 282 H
Vital Signs:
Vital Signs
Temp Pulse Resp BP Pulse Ox
100.4 F H 76 16 97/70 99
06/30/23 11:44 06/30/23 07:18 06/30/23 07:18 06/30/23 06:00 06/30/23 12:24
I&O
06/29/23 06/30/23 07/01/23
06:59 06:59 06:59
Intake Total 600 / 600 2079 / 2080
Output Total 750 / 750
Balance 600 / 600 1330 / 1330
--- NOTE | 2023-06-30 14:08 | CON.CAR ---
Addendum entered and electronically signed by Jesus Del Castillo MD 06/30/23 15:57:
I saw and examined the patient.
The REFRIGERATION MANAGER's note was reviewed and I agree with the note.
Comment: 62F critically ill discovered with EF 35% & moderate to severe MR (presumably new).
- treat underlying issues
- no role for diuresis yet
- no role of cath yet
- records requested again.
Original Note:
Consultation
Consultation Request
Date/Time Consultation Requested: 06/30/23 1236
Date/Time Consultation Performed: 06/30/23 1400
Requesting Provider: Dr. Fierro
Performing Provider: Jessica ELDRIDGE for Dr. Del Castillo
Reason for Consultation: abnormal echo
Medical History
-
Chief Complaint: fever, altered MS, hypoxemia
History of Present Illness:
62 y/o female with emphysema/COPD, hx seizure on meds, anemia, remote hx MT per patient (no stents also per patient, details not clear), CHF (type and details unknown), chronic oliavres, ambulatory dysfunction, obesity, cigarette use, daily ETOH who
presented from [place] for fever (106.1) and altered mental status, as well as sats 86%. Apparently, she was recently in [place]- details unclear and records requested and pending. She is being treated for possible sepsis related to PNA, CAUTI, and
decub ulcer. Also concern for med-related fever (phenytoin). BP's low, so she is requiring Levophed for BP support. 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 On assessment, she is on 2L NC and has wheezing and rhonchi to assessment. She is from a
[place], but tells me that is recent.
Past Medical History
Past Medical History: CHF, COPD, Seizures and Other (anemia, hx MT)
Social History
Tobacco: Smoker (1-2 cigarettes per day)
Alcohol: Daily (1-2 vodka sodas per day)
Living: Assisted
Family History
Family History: CAD (dad had MT, age unknown)
Allergies / Home Medications
Allergy/AdvReac Type Severity Reaction Status Date / Time
buspirone Allergy Unknown Verified 06/28/23 18:44
ciprofloxacin Allergy Unknown Verified 06/28/23 18:44
Penicillins Allergy Unknown Verified 06/28/23 18:44
Medication Instructions Recorded Confirmed Type
Diclofenac Sodium 1% Gel 1 applic topical QID pain 06/28/23 06/28/23 History
acetaminophen 325 mg tablet 650 mg PO Q4H PRN mild 06/28/23 06/28/23 History
(Tylenol) pain/temp>100F
albuterol sulfate 2.5 mg/3 mL 2.5 mg inhalation R Q6HPRN PRN 06/28/23 06/28/23 History
(0.083 %) solution for nebulization sob/wheezing
atorvastatin 40 mg tablet 40 mg PO HS High Cholesterol 06/28/23 06/28/23 History
bisacodyl 10 mg rectal suppository 10 mg MT DAILY PRN if MOM is 06/28/23 06/28/23 History
(Dulcolax (bisacodyl)) ineffective after 24 hrs
calcium acetate 952 mg-aluminum 1 applic topical BID Skin Issues 06/28/23 06/28/23 History
sulfate 1,347 mg topical powder
packet ([place])
collagenase clostridium histo. 250 1 applic topical DAILY apply to 06/28/23 06/28/23 History
unit/gram topical ointment sacrum
folic acid 1 mg tablet 1 mg PO DAILY supplement 06/28/23 06/28/23 History
gabapentin 300 mg capsule 600 mg PO TID pain 06/28/23 06/28/23 History
magnesium hydroxide 400 mg/5 mL 30 ml PO DAILY PRN if no BM in 3 06/28/23 06/28/23 History
oral suspension (Milk of Magnesia) days
magnesium oxide 400 mg PO DAILY supplement 06/28/23 06/28/23 History
morphine 30 mg tablet,extended 30 mg PO BID pain 06/28/23 06/28/23 History
release
oxycodone 15 mg tablet (Roxicodone) 15 mg PO Q6H PRN wound pain 06/28/23 06/28/23 History
pantoprazole 40 mg tablet,delayed 40 mg PO DAILY Gastrointestinal 06/28/23 06/28/23 History
release Issue
phenytoin sodium extended 100 mg 200 mg PO DAILY seizure 06/28/23 06/28/23 History
capsule
sertraline 25 mg tablet 125 mg PO DAILY Mental 06/28/23 06/28/23 History
Health/Anxiety
sodium phosphates 19 gram-7 118 ml MT DAILYPRN PRN if dulcolax 06/28/23 06/28/23 History
gram/118 mL enema (Fleet Enema) is ineffective after 24 hrs
Review of Systems
-
History Source: Patient
All other systems: Negative unless noted
Constitutional: Fever
Respiratory: Trouble Breathing
Musculoskeletal: Edema (chronic, unchanged)
Neurological: Other (alterened MS)
Physical Exam
Vital Signs
Temp Pulse Resp BP Pulse Ox
100.4 F H 76 16 97/70 99
06/30/23 11:44 06/30/23 07:18 06/30/23 07:18 06/30/23 06:00 06/30/23 12:24
Lab Results
06/30/23 04:38
06/30/23 04:38
Troponin I 0.085 ng/ml H* 06/30/23 11:44
Llf-G-Mksmkggopbk Pept 7100 pg/ml 06/29/23 03:52
Physical Exam
General: Well Developed, Well Nourished and No Apparent Distress
HEENT: Normocephalic and Anicteric
Respiratory: Wheezes, Rhonchi and Other (on O2 by NC)
Cardiac: Regular Rhythm and Peripheral Edema (mild BLE edema, chronic stable per patient)
Musculoskeletal: Edema
Skin: Warm and Dry
Neuro: AO x 3
Psych: Calm
Impression / Plan
-
Suspected septic shock:
-this diagnosis is threat to life
-presented with severe fever, now improved
-requiring levophed for BP support- this medicine requires intensive monitoring for toxicity
-on ABX
-ID consulted
-possible sources PNA, UTI, wound
-also some concern from ID for fever related to phenytoin (neuro following)- doesn't seem likely
COPD:
-getting breathing tx
-still with wheezing rhonchi
-on O2
-tells me she still smokes 1-2 cigs per day- I recommended total cessation
Abnormal echo:
-cardiomyopathy EF 30-35%- unknown chronicity- patient reports history of CHF, details unknown, doesn't see cardiology as OP only in hospital
-moderate to severe MR- also unknown chronicity
-all in setting of acute, severe illness
-cannot add meds (BB/ACEI/ARB/ARNI/MRA) due to BP limitations (on levophed), suspected UTI (SGLT2)
-does not appear volume overloaded to assessment; follow volume
Abnormal troponin:
-suspect acute non-ischemic myocardial injury in setting of acute illness- sepsis, hypotension, hyperthermia
ETOH use:
-patient reports 1-2 vodka drinks daily
-recommend total cessation
Note: Records from [place] will be helpful. I checked with unit sec and they have been officially requested, but not back yet.
Data Reviewed
-
EKG: Tracing Personally Visualized and interpreted (SR with PAC's left axis deviation lateral t wave abnormalities)
Radiology: Report Reviewed by me (CXR: Small left pleural effusion with associated atelectasis and/or pneumonia.)
Medical Tests (Nuc Med, Echo etc): Report Reviewed by me (Echo : EF 30-35%, global hypokinesis; Enlarged right ventricular size. Normal right ventricular systolic function. Moderate-severe mitral regurgitation. Mild to moderate tricuspid
regurgitation. Estimated pulmonary artery pressure of 39 mmHg)
Labs: Labs Reviewed by me
[2023-06-30 14:09] LABS: TSH Reflex To Free T4 5.64 uIU/ml (0.47-4.68)
[2023-06-30 14:28] LABS: Vitamin B12 807 pg/ml (239-931)
--- NOTE | 2023-06-30 14:31 | PN.CDI ---
CDI
- -
CDI:
Physician Documentation Request
Admit Date: 06/28/23 21:55
Dear Doctor Vadim,
Patient admitted with septic shock.
06/29 WCN note, 'Patient admitted with: Stage 3 large PI to L buttock extending down to Ischium, small hermosillo eschar, otherwise clean and friable. R buttock with small stage 2 PI. R thigh with stage 3 PI. Patient states she has had wounds for about a
month.'
Physician documentation of the type and location of wounds is required for compliant documentation. Based on the above clinical findings and your assessment, please provide the following in your progress note:
Type (etiology) of ulcer/wound:
- Pressure (decubitus) ulcer
- Other
- Unable to determine
For a pressure ulcer, please also include the stage* of the ulcer:
- Stage 1 - Skin intact, non-blanchable redness
- Stage 2 - Partial thickness loss of dermis, includes intact or open blister
- Stage 3 - Full thickness tissue not including bone, tendon or muscle
- Stage 4 - Full thickness tissue loss, including exposed bone, tendon or muscle
- Unstageable - Full thickness loss in which the base of the ulcer is covered by slough (yellow, hermosillo, suero, green or brown) and/or eschar (hermosillo, brown or black) in the wound bed.
- Unable to determine
Use of terms such as suspected, likely, concern for, or probable (associated with a specific diagnosis that is being evaluated, monitored, or treated as if it exists) are acceptable and can be coded in the inpatient setting, when documented at the
time of discharge.
Thank you,
Lilian BUTLER,RN,CCDS
CDI Specialist
Available via [employer] text
Please use your independent medical judgment in providing your response.
*Source: National Pressure Ulcer Advisory Panel (NPUAP)
[2023-06-30] MEDS: THIAMINE INJECTION 100 MG IV (15:57)
--- NOTE | 2023-06-30 16:00 | SUR.OPER ---
Levo off at this time. MAP is 85
[2023-06-30] MEDS: LOVENOX 40 MG SC (17:28)
[2023-06-30] MEDS: ROXICODONE 10 MG PO (17:28)
[2023-06-30 18:19] LABS: Glucose - Point of Care 103 mg/dl (70-99)
[2023-06-30 18:53] LABS: Troponin I 0.065 ng/ml
[2023-06-30 20:48] LABS: Glucose - Point of Care 144 mg/dl (70-99)
[2023-06-30] MEDS: LIPITOR 40 MG PO (21:04)
[2023-07-01] VITALS (19 sets, daily range): BP systolic 101–121; BP diastolic 37–93; BMI 41.7
[2023-07-01] MEDS: ROXICODONE 10 MG PO
[2023-07-01 00:47] LABS: Troponin I 0.052 ng/ml
[2023-07-01] MEDS: DILAUDID 0.5 MG IV ×5 (01:12→21:34)
[2023-07-01] MEDS: STERILE WATER FOR INJECTION 10 ML IV ×4 (01:13→21:01)
[2023-07-01] MEDS: MAXIPIME 2000 MG IV (01:13)
--- NOTE | 2023-07-01 02:16 | PTCARENOTE ---
Addendum entered by Alexia Espinoza RN 07/01/23 07:26:
Pt allowed Rn to turn to the left side, pt did yell out ' oh mommy why'. emotional support given and pain management.
Original Note:
Assumed care of Pt from day RN. Pt is AAOx3 forgetful at times. Pt Bp and temp self maintaining within parameters. During shift Pt refusing to be turned, Pt crying out whimpering saying 'I stay in one spot, or it hurts to much'. Education given
about turning, preventing further breakdown of wounds and new pressure areas. Pt still repeatedly refusing turns with louder crying whimper tone. Pt agreed with slight shift in hips. Pain management continued with scheduled and PRN medications with
continued education, see MAR. Assessment care and vitals as charted.
[2023-07-01] MEDS: DECADRON 4 MG IV ×4 (04:19→21:01)
[2023-07-01 04:50] LABS: % Basophils 0.8 % (0-2); % Eosinophils 0.4 % (0-6); % Lymphocytes 24.9 % (20.5-51.1); % Monocytes 8.7 % (1.7-9.3); % Neutrophils 65.2 % (42.2-75.2); Absolute Lymphocytes 0.6 10^3/uL (1.2-3.4); Absolute Monocytes 0.2 10^3/uL (0.1-0.6); Absolute Neutrophils 1.6 10^3/uL (1.4-6.5); Hematocrit 21.1 % (37.0-47.0); Mean Corp Hgb Conc. 31.3 g/dL (33.0-37.0); Mean Corpuscular Hgb 29.3 pg (27.0-31.0); Mean Corpuscular Volume 93.8 fL (81.0-99.0); Mean Platelet Volume 10.1 fL (7.4-10.4); Nucleated Red Blood Cells % 0 %; Platelet Count 180 10^3/uL (130-400); Red Blood Cell Count 2.25 10^6/uL (4.20-5.40); Red Cell Dist. Width 15.1 % (11.5-14.5)
[2023-07-01] MEDS: XOPENEX 1.25 MG INHALANT SOLUTION INH ×5 (05:01→19:21)
[2023-07-01 05:13] LABS: Procalcitonin 1.85 ng/ml (0.0-0.25)
[2023-07-01 05:15] LABS: ALT (SGPT) 33 U/L (0-35); AST (SGOT) 68 U/L (14-36); Albumin 2.2 g/dl (3.5-5.0); Alkaline Phosphatase 266 U/L (38-126); Blood Urea Nitrogen 20 mg/dl (7-17); Calcium 7.7 mg/dl (8.4-10.2); Carbon Dioxide 19 mmol/L (22-30); Chloride 105 mmol/L (98-107); Estimated Creatinine Clearance > 125 ml/min; Glucose 89 mg/dl (70-99); Potassium 4.3 mmol/L (3.5-5.1); Sodium 132 mmol/L (135-145); Total Bilirubin 0.5 mg/dl (0.2-1.3); Total Protein 4.8 g/dl (6.3-8.2); eGFR > 60.00
[2023-07-01 05:54] LABS: Hemoglobin 6.6 g/dL (12.0-16.0)
[2023-07-01 05:56] LABS: White Blood Cell Count 2.4 10^3/uL (4.8-10.8)
--- NOTE | 2023-07-01 06:28 | PTCARENOTE ---
Pt morning labs Hgb 6.6 Hct 21.1 WBC 2.4, night TILE EDGER made aware 1 unit PRBC ordered.
--- NOTE | 2023-07-01 06:35 | W.PN.UPDATE ---
Update Note
Progress Note Update
Hgb level dropped down from 8.2- 6.6 this am, no signs of bleeding. Vital signs within normal limits. Blood consent in the chart, one unit of blood was ordered and will monitor h&h level.
[2023-07-01 07:29] LABS: Glucose - Point of Care 106 mg/dl (70-99)
--- NOTE | 2023-07-01 07:45 | PTCARENOTE ---
Patient with antibodies in blood. Lab called and reported blood needs to come from the [facility].
[2023-07-01] MEDS: ATROVENT NEBULES 0.5 MG INH ×3 (07:46→19:21)
[2023-07-01] MEDS: MS CONTIN (EXTENDED RELEASE) 15 MG PO ×2 (08:27→21:01)
[2023-07-01] MEDS: NEURONTIN 600 MG PO ×3 (08:27→21:02)
[2023-07-01] MEDS: NOVOLOG FLEXPEN-LOW RESISTANCE SC ×3 (08:27→17:36)
[2023-07-01] MEDS: FOLVITE 1 MG PO (08:27)
[2023-07-01] MEDS: MUCINEX 1200 MG PO ×2 (08:27→21:00)
[2023-07-01] MEDS: DILANTIN 200 MG PO (08:28)
[2023-07-01] MEDS: ZOLOFT 100 MG PO (08:28)
[2023-07-01] MEDS: THIAMINE INJECTION 100 MG IV (08:28)
--- NOTE | 2023-07-01 09:46 | W.PN.ID1 ---
Date of Service
Date of Service: July 01, 2023
Today's Communication
See below.
Assessment / Plan
# Persistent pruritus without rash, off Vancomycin.
3 hx PCN allergy - swelling/rash
- DC cefepime and monitor for improvement
- Benadryl prn.
# Recent high fever/hyperthermia up to 106F, improving
# Hypotension on 2 pressors
# Possible pneumonia
-Neuro doesn't deem phenytoin as source of fever.
- Bcx's x2 neg to date.
- Ucx from olivares: +yeast (no significance)
- CXR: small L pleural effusion with atelectasis vs PNA
-Urine legionella Ag and Strep pneumo ag negative (not sensitive tests)
-Unable to produce sputum for cx.
-Due to itching, replace cefepime with meropenem; day 3 abx
- Follow temps.
-Follow acute leukopenia
# Troponin leak
# c/o heartburn - probably cardiac source
-Ordered 1 dose of Maalox
-TTE: EF 30-35%, mod to severe MR
- Cardiology managing
# Exacerbation COPD on chronic O2
-Currently on dexamethasone
# chronic sacral decubitus - clean w/o infection
# Chronic right hip pain avascular necrosis of hip
# Recent hospitalization at [facility]
-Still awaiting outside records
#Additional Past Medical History:
DM2
Morbid Obesity
DANIEL
COPD
Chronic Hypoxemic Respiratory Failure on Home O2
CAD
Anxiety / Depression
Avascular Necrosis R Femoral Head
Chronic olivares
Chronic Pain / Chronic Opioid Dependence
Seizure Disorder
Bedbound
Chief Complaint
-: Fever
Subjective / Review of Systems
c/o persistent diffuse itiching.
c/o significant heartburn
+nonproductive cough
Vital Signs / Physical Exam
Vital Signs
Vital Signs
Temp Pulse Resp BP Pulse Ox
98.8 F 90 18 116/64 97
07/01/23 07:57 07/01/23 07:46 07/01/23 07:46 07/01/23 06:02 07/01/23 07:46
Physical Exam
Constitutional: Non-toxic
Eyes: No Conjunctival Hemorrhage and Sclera Anicteric
Cardiovascular: Regular Rate and S1/S2
Pulmonary: Other (decreased airway movement)
Gastrointestinal: Soft, Non Tender, Non Distended and Normal Bowel Sounds
Genito-Urinary: Olivares and Clear Urine
Extremities: Negative Edema
Skin: Negative Rash
Neurological: AO x 3
Objective Data
Lab Data
Lab Results
07/01/23 04:21
ESR 59 mm/hour (0-20) H 06/28/23 21:36
PT 16.9 Sec (11.4-14.6) H 06/28/23 19:19
INR 1.34 06/28/23 19:19
APTT 36.2 Sec (23.4-35.0) H 06/28/23 19:19
Estimated Creat Clear > 125 ml/min 07/01/23 04:21
Lactic Acid Cancelled 06/28/23 23:15
Total Bilirubin 0.5 mg/dl (0.2-1.3) 07/01/23 04:21
AST 68 U/L (14-36) H 07/01/23 04:21
ALT 33 U/L (0-35) 07/01/23 04:21
Alkaline Phosphatase 266 U/L (38-126) H 07/01/23 04:21
Most recent labs reviewed.
Micro Results:
06/28/23 19:19 Blood Culture - Preliminary
Blood/Venous No Growth in 48 hours- Final report to follow
06/28/23 19:19 Blood Culture - Preliminary
Blood/Venous No Growth in 48 hours- Final report to follow
06/28/23 19:19 Urine Culture - Final
Urine Yeast
06/29/23 03:52 MRSA Screen - Final
Nose No Methicillin Resistant Staphylococcus aureus isolated.
06/29/23 10:13 Legionella Urinary Antigen - Final
Urine Negative for Legionella pneumophila Serogroup 1 antigen.
A negative result does not rule out the possiblity of
Legionella infection due to other serogroups or species of
Legionella. Clinical correlation is recommended.
Streptococcus pneumoniae Antigen (M - Final
Negative for Streptococcus pneumoniae antigen.
A negative result does not exclude infection with
Streptococcus pneumoniae. Clinical correlation is
recommended.
06/28/23 19:19 Influenza Types A & B (AB) - Final
Nasal Swab Negative for Influenza A & B, NAAT
Negative results must be combined with clinical observations
and patient history.
Nucleic Acid Amplification test (NAAT)performed on the
[employer] platform.
06/28/23 19:19 Respiratory Syncytial Virus Culture - Final
Nasal Swab Negative for Respiratory Syncytial Virus.
A false negative result may be obtained with a specimen
collected early in the acute phase. If symptoms persist, a
new specimen should be tested.
06/28/23 CXR: Small left pleural effusion with associated atelectasis and/or pneumonia.
--- NOTE | 2023-07-01 09:49 | PTCARENOTE ---
Patient yelling out this morning and crying. Patient reports she had a BM and it is burning in her buttocks wounds. I reminded patient to use call schaffer and yelling out is not appropriate. Pt verbalized understanding. While turning patient and
pericare, she continues to yell out, screaming at times 'mommy', and stating her wounds are painful. Attempted wound care as gentle as possible. Pt medicated with scheduled Morphine following care. Assessment, care and VS as charted.
--- NOTE | 2023-07-01 09:51 | W.PN.CD ---
Addendum entered and electronically signed by Jesus Del Castillo MD 07/01/23 10:58:
I saw and examined the patient.
The STATISTICAL MACHINE SERVICER's note was reviewed and I agree with the note.
Comment: 62F with EF 35% and mod-severe MR discovered during critical illness
- still with supportive care
- eventual ischemic eval/GDMT etc
- records requested again
Addendum entered and electronically signed by JAZMYN Quesada 07/01/23 10:32:
I spoke to someone in medical records at [facility], who says they will fax over records.
Also discussed case with Dr. Fierro.
Original Note:
Today's Communication / Plan
-
-will attempt to call for records, since they will be helpful
-resume pantoprazole (patient reports indigestion, currently getting Maalox too)
-worsened anemia noted- PRBC's ordered- w/u per primary team
-monitor volume- currently seems stable
-GDMT when tolerated, but recently off Levophed, so will hold off for now
Impression / Plan
-
Assessment/Plan: 62 y/o female with emphysema/COPD, hx seizure on meds, anemia, remote hx ND per patient (no stents also per patient, details not clear), CHF (type and details unknown), chronic Mota, ambulatory dysfunction, obesity, cigarette use,
daily ETOH who presented from [place] for fever (106.1) and altered mental status, as well as sats 86%. Apparently, she was recently in [place]- details unclear and records requested and pending. She is being treated for possible sepsis related to
PNA, CAUTI, and decub ulcer.
Suspected septic shock:
-improving in that she is off Levophed now, and severe fever improved
-on ABX and ID is following
-possible sources PNA, UTI, wound
COPD:
-still with wheezing rhonchi
-on O2
-she told me she still smokes 1-2 cigs per day- I recommended total cessation
Cardiomyopathy EF 30-35%- unknown chronicity, type unknown- patient reports history of CHF, details unknown, doesn't see cardiology as OP only in hospital
-cannot add meds (BB/ACEI/ARB/ARNI/MRA) due to BP limitations (on levophed), suspected UTI (SGLT2)
-does not appear volume overloaded to assessment
Moderate to severe MR- also unknown chronicity:
-volume okay, as above
Abnormal troponin:
-suspect acute non-ischemic myocardial injury in setting of acute illness- sepsis, hypotension, hyperthermia
ETOH use:
-patient reports 1-2 vodka drinks daily
-recommend total cessation
Anemia:
-acute on chronic
-PRBC administered
Indigestion:
-feels like her typical heartburn. Noted after eating. Tums helped per patient. Maalox ordered. Will resume pantoprazole.
Note: Records from [facility] will be helpful. Still not here yet, will try and call over.
Physical Exam
Vital Signs/Labs
Vital Signs
Temp Pulse Resp BP Pulse Ox
98.8 F 96 14 121/62 97
07/01/23 07:57 07/01/23 08:33 07/01/23 08:33 07/01/23 08:33 07/01/23 09:39
06/30/23 07/01/23 07/02/23
06:59 06:59 06:59
Actual Weight 131.9 kg 131.8 kg
07/01/23 04:21
PT 16.9 Sec (11.4-14.6) H 06/28/23 19:19
INR 1.34 06/28/23 19:19
APTT 36.2 Sec (23.4-35.0) H 06/28/23 19:19
Magnesium 1.4 mg/dl (1.6-2.3) L 06/29/23 03:52
Free T4 0.90 ng/dl (0.78-2.19) 06/30/23 11:43
06/29/23
03:52
Gej-H-Apcrisfaytb Pept 7100
LAB Results
06/30/23 06/30/23 07/01/23
11:44 18:09 00:08
Troponin I 0.085 H* 0.065 H* 0.052 H*
Physical Exam
Cardiovascular: Rhythm & rate is regular and Pedal edema present (mild BLE)
Respiratory: Wheeze Present, Rhonchi Present and Other (on O2 by NC)
Neuro/Psych: Alert and Oriented
Data Reviewed
-
Date of Service: July 01, 2023
EKG: Other (tele SR)
Old Records: Requested
[2023-07-01] MEDS: MERREM 500 MG IV ×3 (10:43→21:01)
[2023-07-01] MEDS: MAALOX 30 ML PO (10:43)
[2023-07-01] MEDS: PROTONIX 40 MG PO (10:47)
--- NOTE | 2023-07-01 12:20 | W.PN.HOSP.TC ---
Today's Communication/Plan
-
Monitor vital signs and see plan
Blood transfusion today
Repeat hemoglobin later today
Continue with antibiotics, changed to meropenem
Elevated Pro-Jose
Awaiting records
Assessment / Plan
Assessment / Plan
General: no acute distress
HEENT: dry MM
Respiratory: Other (Decreased at bases - otherwise clear.)
Cardiac: S1/S2 and Regular Rhythm; No Murmur
GI: Other (Morbidly obese.� Mild lower abdominal tenderness.� No rebound / guarding.� Pos BS.)
Musculoskeletal: No Clubbing, No Cyanosis and Other (Induration and increased warmth over the R greater trochanter / hip region.� Pos tenderness.� No appreciable fluctuance.)
Skin: Other (Stage III sacral decub wth some surrounding induration / erythema.)
Neuro: Awake and Alert; No Oriented
Psych: Confused
Suspected septic shock
�- Multiple potential sources including pulmonary (L base pneumonia), (CAUTI), Skin (sacral decub)
Suspect some toxic metabolic encephalopathy secondary to above
was on levophed; now off
�-abx changed to meropenem. ID following
Evaluated by neurology who does not think the fevers are from phenytoin
follow fever curve
�- Obtain records from [facility] to shed light on recent hospitalization, culture data, lab values, etc.
�-hip x-rays were ordered however patient refused
advance diet to fulls
ammonia wnl; B1 pending, normal CK
LLL Pneumonia
Acute on Chronic Hypoxemic Respiratory Failure; on 3 L chronic o2
COPD with possible Acute Exacerbation
started standing and prn nebs; started IV decadron
�- CXR with possible L base pneumonia and small effusion. + procal
�- IV abx as noted above.
Suspect acute on chronic Anemia of Chronic Disease
some acute on chronic blood loss anemia from sacral decub
Hemoglobin 6.6 on 07/01, 1 unit PRBC pending availability
�- Unknown baseline.� Follow-up recent records from [facility] for comparison.
�- No evidence of active bleeding at present.
elevated bnp
per patient unknown if hx of CHF; unknown EF
used to be on lasix but now stopped
Echo 06/29 with EF 30-35%; global hypokinesis; cardiology following
heart burn
maalox; PPI
Mild troponin elevation likely non-SD related
Monitor
Chronic Indwelling Mota Catheter
CAUTI
�- UA consistent with infection.� IV abx as noted above.
�- Follow-up culture data.
�- Mota exchanged in the ED
Hyponatremia
Monitor
Hypomagnesemia
Monitor
Leukopenia
Monitor
Avascular Necrosis of the Right Hip
�- Unclear chronicity of this condition.� Patient complains of pain at present and surrounding induration / increased warmth in tissues overlying the hip.
�xrays were ordered however patient refused
per daughter; orthopedics at [facility] has refused surgery until patient loses weight.
Suspect severe anxiety
ativan prn
Abnormal LFTs
monitor
Seizure Disorder
�- Unknown history, most recent seizure, etc.
�- Continue phenytoin and follow for any breakthrough seizures.
Benign Hypertension
DM-II
�- Patient has both listed diagnoses, but on no medications for either.
�- Follow BP / glucose.
�- Cover with SSI as needed.� A1C 5.2
Stage 3 large PI to L buttock extending down to Ischium, small hermosillo eschar, R buttock with small stage 2 PI. R thigh with stage 3 PI
wound care
Chronic Pain Syndrome
Chronic Opioid Dependence
Chronic Bed-Bound Status
�- Continue usual BID morphine; decrease dose
�- Continue oxycodone PRN - but at decreased dosing.
�- PT / OT evaluations.
�- ? etiology of bed-bound nature (? avascular necrosis). per patient its her right hip that she needs surgery and her neuropathy
Spoke with daughter in length 06/30 and she also thinks patient has been overly medicated due to her pain medications and this has been sent before by different physicians. I decreased her morphine dose this hospitalization.
Morbid Obesity due to excess calories / immobility
�- Affects all aspects of care.
�- This bed-bound 62y F will not be able to effect significant changes in diet or exercise to realize significant weight loss.
DVT Prophylaxis:� Lovenox
Code Status:� Full
I spent a total of 53 minutes with the patient or on the floor. More than 50% of this time involved counseling and coordination of care.
Anticipated Discharge: > 48 hours
Subjective/Interval History
-
Date of Service: July 01, 2023
has some pain
Objective Data
-
Labs:
Laboratory Results
07/01/23 07/01/23
04:21 14:00
WBC 2.4 L*
Hgb 6.6 L* Pending
Hct 21.1 L Pending
Plt Count 180 D
Sodium 132 L
Potassium 4.3
Chloride 105
Carbon Dioxide 19 L
BUN 20 H
Creatinine 0.5 L
Glucose 89
Calcium 7.7 L
Total Bilirubin 0.5
AST 68 H
ALT 33
Alkaline Phosphatase 266 H
Vital Signs:
Vital Signs
Temp Pulse Resp BP Pulse Ox
98.8 F 81 18 121/62 97
07/01/23 07:57 07/01/23 10:00 07/01/23 10:00 07/01/23 08:33 07/01/23 10:00
I&O
06/30/23 07/01/23 07/02/23
06:59 06:59 06:59
Intake Total 2080 / 2080 3070 / 3070
Output Total 750 / 750 2099 / 2099 975 / 975
Balance 1330 / 1330 970 / 970 -975 / -975
[2023-07-01 13:02] LABS: Glucose - Point of Care 117 mg/dl (70-99)
--- NOTE | 2023-07-01 13:19 | PTCARENOTE ---
Patient found with oxygen on forehead. SPO2 dropping to 87%. Replaced O2 and SPO2 improved to 98%.
--- NOTE | 2023-07-01 13:30 | PTCARENOTE ---
1 Unit of packed RBCs infusing. No transfusion reaction noted.
[2023-07-01] MEDS: TYLENOL 650 MG PO (13:57)
--- NOTE | 2023-07-01 14:01 | PTCARENOTE ---
Patient c/o of 10/10 pain to R hip and leg, medicated with PRN Dilaudid. Pt then called 20 minutes later and reported a frontal headache. Pt requested Tylenol, medicated per AUG.
--- NOTE | 2023-07-01 15:41 | PTCARENOTE ---
PRBCs done infusing. H&H retimed to 1740.
--- NOTE | 2023-07-01 16:29 | W.PN.NEURO.1 ---
Today's Communication / Plan
-
.
Subjective/Objective
Subjective Data
Date of Service: July 01, 2023
24h events: afebrile, normotensive, was started on Meropenem in the morning.
Free T4, vit [id number].
PMH: Chronic pain syndrome on opioid therapy, ambulatory dysfunction, chronic hypoxic respiratory failure/COPD, DNAIEL, CAD, HTN, DLP, DM, MDD, GERD, anemia, Avascular Necrosis R Femoral Head
SH: resident at 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
FH:not contributory
All: cipro, buspirone, PNC
ROS:Constitutional: Negative. Negative for chills, fever and unexpected weight change.
HENT: Negative for ear pain, hearing loss, tinnitus and trouble swallowing.
Eyes: Negative. Negative for photophobia, pain and visual disturbance.
Respiratory: Negative for cough, choking and shortness of breath.
Cardiovascular: Negative for chest pain, palpitations and leg swelling.
Gastrointestinal: positive for gerd symtpoms
Endocrine: Negative. Negative for cold intolerance.
Genitourinary: positive for chronic UI
Musculoskeletal: positive for arthralgias (chronic right hip pain)
Skin: Negative for rash.
Allergic/Immunologic: Negative. Negative for immunocompromised state.
Neurological: positive for tremors, leg weakness
Psychiatric/Behavioral: positive for transient confusion.
�
�
General: Well developed. In no acute distress.
Cardio: Regular rate and rhythm without murmur. Extremities are without cyanosis or edema.
Neuro:
Mental Status: Alert, oriented to self, person, place, month, year. Mildly impaired attention and recall.� Labile mood. Good fund of knowledge. Follows complex requests across the midline.� Comprehension, naming, and repetition intact.�
Cranial Nerves: Pupils are equally round and reactive to light.� EOMs full.� Visual garrett full to confrontation.� No ptosis.� No nystagmus.� V1-V3 intact to light touch and pinprick bilaterally, symmetric.� Face symmetric.� Normal hearing AU.� The
palate elevated well.� SCMs and traps 5/5.� Tongue midline.� No dysarthria.
Motor:� � � � Normal bulk and tone.� No pronator or arm drift.� Strength 5/5 throughout, except for proximal leg weakness 1/5. Distal strength-5-/5 No clonus.
Coordination: Intermittent action BL hand tremor, improved
Gait: � � � nonambulatory
Spiral test-positive
Assessment and Plan:
�
I. Multifactorial encephalopathy (metabolic, toxic, infectious), clinically improved
II. Fever. Resolved
III. History of seizure
IV. Chronic proximal paraparesis(upper lumbar polyradiculopathy?)
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
-Continue Thiamine PO;
-Continue Dilantin 200mg QHS
-OP Neurology follow up in 2-3 weeks.
-DVT prophylaxis.
�
�
I personally reviewed all radiology and labs along with past medical records pertinent to current medical problems.
�
Thank you for allowing us to participate in the care of this patient. Please do not hesitate to contact us with any questions or concerns.
Objective Data
Vital Signs
Temp Pulse Resp BP Pulse Ox
36.6 C 84 20 105/64 100
07/01/23 15:37 07/01/23 15:37 07/01/23 15:37 07/01/23 15:37 07/01/23 15:34
Lab Results
07/01/23 04:21
PT 16.9 Sec (11.4-14.6) H 06/28/23 19:19
INR 1.34 06/28/23 19:19
APTT 36.2 Sec (23.4-35.0) H 06/28/23 19:19
Sodium 132 mmol/L (135-145) L 07/01/23 04:21
Potassium 4.3 mmol/L (3.5-5.1) 07/01/23 04:21
BUN 20 mg/dl (7-17) H 07/01/23 04:21
Glucose 89 mg/dl (70-99) 07/01/23 04:21
Calcium 7.7 mg/dl (8.4-10.2) L 07/01/23 04:21
Wtc-F-Zcdqmignroz Pept 7100 pg/ml 06/29/23 03:52
Vitamin B12 807 pg/ml (512-931) 06/30/23 11:43
Patient Allergies
buspirone Allergy (Verified 06/28/23 18:44)
Unknown
ciprofloxacin Allergy (Verified 06/28/23 18:44)
Unknown
Penicillins Allergy (Verified 07/01/23 09:44)
swelling/rash
Modified Kandi Score (MRS)
-
MRS Score:
Medications
-
Medications:
Generic Name Dose Route Start Last Admin
Trade Name Freq PRN Reason Stop Dose Admin
Acetaminophen 650 mg 06/29/23 01:16 07/01/23 13:57
Acetaminophen 325 Mg Tablet PO 07/27/23 01:15 650 mg
Q4H PRN Administration
mild pain/temp>101
Al Hydrox/Mg Hydrox/Simethicone 30 ml 07/01/23 12:26
Mag/Al/Simethicone Suspension 30 Ml Cup PO 07/29/23 12:25
QIDPRN PRN
Indigestion
Atorvastatin Calcium 40 mg 06/29/23 01:16 06/30/23 21:04
Atorvastatin (Lipitor) 40 Mg Tablet PO 07/27/23 01:15 40 mg
HS STEFFEN Administration
Dexamethasone Sodium Phosphate 4 mg 06/29/23 09:00 07/01/23 16:26
Dexamethasone 4 Mg/Ml 1 Ml Vial IV 07/27/23 08:59 4 mg
Q6H STEFFEN Administration
Dextrose 12.5 grams 06/29/23 01:16
Dextrose 50% (0.5 Grams/Ml) 50 Ml Syringe IV 07/27/23 01:15
[id number] PRN
hypoglycemia
Protocol
Diphenhydramine HCl 25 mg 06/30/23 10:18
Diphenhydramine 25 Mg Capsule PO 07/28/23 10:17
Q4HPRN PRN
Itching
Enoxaparin Sodium 40 mg 06/29/23 18:00 06/30/23 17:28
Enoxaparin Sodium 40 Mg/0.4 Ml Syringe SC 07/27/23 17:59 40 mg
QPM STEFFEN Administration
Folic Acid 1 mg 06/29/23 08:00 07/01/23 08:27
Folic Acid 1 Mg Tablet PO 07/27/23 07:59 1 mg
DAILY STEFFEN Administration
Gabapentin 600 mg 06/29/23 01:16 07/01/23 16:26
Gabapentin 300 Mg Capsule PO 07/27/23 01:15 600 mg
TID STEFFEN Administration
Glucagon 1 mg 06/29/23 01:16
Glucagon 1 Mg Vial IM 07/27/23 01:15
PRN PRN
hypoglycemia
Protocol
Guaifenesin 1,200 mg 06/29/23 12:00 07/01/23 08:27
Guaifenesin 600 Mg Extended Release Tablet PO 07/27/23 11:59 1,200 mg
Q12 STEFFEN Administration
Hydromorphone HCl 0.5 mg 06/29/23 01:16 07/01/23 13:26
Hydromorphone 0.5 Mg/0.5 Ml Syringe IV 07/13/23 01:15 0.5 mg
Q4HPRN PRN Administration
severe pain
Insulin Aspart 0 units 06/29/23 07:30 07/01/23 12:52
Insulin Aspart Low Resistance 300 Units/3 Ml Pen.Injctr SC 07/27/23 07:29 Not Given
AC STEFFEN
Protocol
Ipratropium [place] 0.5 mg 06/29/23 14:00 07/01/23 14:06
Ipratropium Nebs 0.5 Mg/2.5 Ml Ampul INH 07/27/23 13:59 0.5 mg
R TID STEFFEN Administration
Protocol
Ipratropium [place] 0.5 mg 06/29/23 08:22
Ipratropium Nebs 0.5 Mg/2.5 Ml Ampul INH 07/27/23 08:21
R Q6HPRN PRN
sob or wheezing
Protocol
Levalbuterol HCl 1.25 mg 06/29/23 14:00 07/01/23 14:05
Levalbuterol 1.25 Mg/3 Ml Ampul INH 07/27/23 13:59 1.25 mg
R TID STEFFEN Administration
Protocol
Levalbuterol HCl 1.25 mg 06/29/23 08:22 07/01/23 05:01
Levalbuterol 1.25 Mg/3 Ml Ampul INH 07/27/23 08:21 1.25 mg
R Q6HPRN PRN Administration
sob or wheezing
Protocol
Lorazepam 0.5 mg 06/30/23 14:04 07/01/23 16:33
Lorazepam 0.5 Mg Tablet PO 07/28/23 14:03 0.5 mg
Q6HPRN PRN Administration
anxiety
Meropenem 500 mg 07/01/23 10:00 07/01/23 16:29
Meropenem 500 Mg/10 Ml Vial IV 500 mg
Q6H STEFFEN Administration
Morphine Sulfate 15 mg 06/29/23 20:00 07/01/23 08:27
Morphine 15 Mg Extended Release Tablet PO 07/13/23 19:59 15 mg
BID STEFFEN Administration
Ondansetron HCl 4 mg 06/29/23 01:16
Ondansetron 4 Mg/2 Ml Vial IV 07/27/23 01:15
Q6HPRN PRN
nausea and vomiting
Oxycodone HCl 10 mg 06/30/23 17:20 07/01/23 00:00
Oxycodone 10 Mg Regular Release Tablet PO 07/14/23 17:19 10 mg
Q6HPRN PRN Administration
moderate pain
Pantoprazole Sodium 40 mg 07/01/23 11:00 07/01/23 10:47
Pantoprazole 40 Mg Delayed Release Tablet PO 07/29/23 10:59 40 mg
DAILY STEFFEN Administration
Phenytoin 200 mg 06/29/23 08:00 07/01/23 08:28
Phenytoin Sodium Extended 100 Mg Capsule PO 07/27/23 07:59 200 mg
DAILY STEFFEN Administration
Sertraline HCl 100 mg 06/29/23 08:00 07/01/23 08:28
Sertraline 25 Mg Tablet PO 07/27/23 07:59 100 mg
DAILY STEFFEN Administration
Sodium Chloride 0 flush 06/28/23 23:00
Sodium Chloride 0.9% (Flush) Syringe IV 07/26/23 22:59
PER PROTOCOL STEFFEN
Sterile Water 10 ml 07/01/23 10:00 07/01/23 16:29
Sterile Water For Injection 10 Ml Vial IV 07/29/23 09:59 10 ml
Q6H STEFFEN Administration
Thiamine HCl 100 mg 06/30/23 16:00 07/01/23 08:28
Thiamine (100 Mg/Ml) 2 Ml Vial IV 07/02/23 08:01 100 mg
DAILY STEFFEN Administration
[2023-07-01] MEDS: ATIVAN 0.5 MG PO ×2 (16:33→22:46)
[2023-07-01] MEDS: LOVENOX 40 MG SC (17:32)
[2023-07-01 17:35] LABS: Glucose - Point of Care 105 mg/dl (70-99)
[2023-07-01 19:05] LABS: Hematocrit 24.4 % (37.0-47.0); Hemoglobin 7.8 g/dL (12.0-16.0)
[2023-07-01] MEDS: LIPITOR 40 MG PO (21:01)
[2023-07-01 23:08] LABS: Glucose - Point of Care 123 mg/dl (70-99)
[2023-07-02] VITALS (19 sets, daily range): BP systolic 82–110; BP diastolic 47–74; PULSE 77; O2SAT 77–96; BMI 41.1
[2023-07-02] MEDS: DILAUDID 0.5 MG IV ×6 (02:04→22:38)
[2023-07-02] MEDS: DECADRON 4 MG IV ×4 (02:05→20:03)
[2023-07-02] MEDS: STERILE WATER FOR INJECTION 10 ML IV ×4 (04:33→22:16)
[2023-07-02] MEDS: MERREM 500 MG IV ×4 (04:33→22:16)
[2023-07-02 05:19] LABS: % Basophils 0.4 % (0-2); % Immature Granulocytes 0.7 % (0-0.5); % Lymphocytes 20.1 % (20.5-51.1); % Monocytes 4.1 % (1.7-9.3); % Neutrophils 74.7 % (42.2-75.2); Absolute Lymphocytes 0.5 10^3/uL (1.2-3.4); Absolute Monocytes 0.1 10^3/uL (0.1-0.6); Hematocrit 24.9 % (37.0-47.0); Hemoglobin 7.7 g/dL (12.0-16.0); Mean Corp Hgb Conc. 30.9 g/dL (33.0-37.0); Mean Corpuscular Hgb 29.2 pg (27.0-31.0); Mean Corpuscular Volume 94.3 fL (81.0-99.0); Mean Platelet Volume 10.2 fL (7.4-10.4); Nucleated Red Blood Cells % 0 %; Platelet Count 210 10^3/uL (130-400); Red Blood Cell Count 2.64 10^6/uL (4.20-5.40); Red Cell Dist. Width 15.9 % (11.5-14.5); White Blood Cell Count 2.7 10^3/uL (4.8-10.8)
[2023-07-02 05:47] LABS: ALT (SGPT) 30 U/L (0-35); AST (SGOT) 51 U/L (14-36); Albumin 2.5 g/dl (3.5-5.0); Alkaline Phosphatase 287 U/L (38-126); Blood Urea Nitrogen 15 mg/dl (7-17); Calcium 8.4 mg/dl (8.4-10.2); Carbon Dioxide 22 mmol/L (22-30); Chloride 107 mmol/L (98-107); Estimated Creatinine Clearance > 125 ml/min; Glucose 109 mg/dl (70-99); Potassium 4.4 mmol/L (3.5-5.1); Sodium 135 mmol/L (135-145); Total Bilirubin 0.5 mg/dl (0.2-1.3); Total Protein 5.2 g/dl (6.3-8.2); eGFR > 60.00
[2023-07-02] MEDS: XOPENEX 1.25 MG INHALANT SOLUTION INH ×3 (05:53→20:15)
[2023-07-02] MEDS: ATROVENT NEBULES 0.5 MG INH ×3 (05:54→20:15)
--- NOTE | 2023-07-02 06:03 | PTCARENOTE ---
Pt repeatedly refusing to be turned all night. Pt crying out to 'mommy' saying no Im in to much pain. Pt turned and bottom examined 2-3 times. Pt would shift self minimally at times. Education and emotional support given. Pain management (see MAR).
Assessment care and vitals as documented.
[2023-07-02] MEDS: NOVOLOG FLEXPEN-LOW RESISTANCE SC ×3 (07:40→16:41)
[2023-07-02 07:50] LABS: Glucose - Point of Care 120 mg/dl (70-99)
[2023-07-02] MEDS: DILANTIN 200 MG PO (08:12)
[2023-07-02] MEDS: MS CONTIN (EXTENDED RELEASE) 15 MG PO ×2 (08:12→19:58)
[2023-07-02] MEDS: FOLVITE 1 MG PO (08:12)
[2023-07-02] MEDS: MUCINEX 1200 MG PO ×2 (08:12→19:58)
[2023-07-02] MEDS: ZOLOFT 100 MG PO (08:13)
[2023-07-02] MEDS: PROTONIX 40 MG PO (08:13)
[2023-07-02] MEDS: NEURONTIN 600 MG PO (08:13)
--- NOTE | 2023-07-02 08:29 | W.PN.CD ---
Addendum entered and electronically signed by Herrera Martell MD 07/02/23 09:46:
I saw and examined the patient.
The MANAGER LAN's note was reviewed and I agree with the note.
Comment: 62 y/o female with emphysema/COPD, hx seizure on meds, anemia, remote hx TX per patient (no stents also per patient, details not clear), CHF (type and details unknown), chronic Mota, ambulatory dysfunction, obesity, cigarette use, daily
ETOH who presented from [place] for fever (106.1) and altered mental status, as well as sats 86%. Apparently, she was recently in [place]- details unclear and records requested and pending. She is being treated for possible sepsis related to PNA,
CAUTI, and decub ulcer.
She is in an unfortunate situation and lives alone with little help. She tells me she is unable to walk and take care of herself, will likely require 24 hr care once able to be d/c.
- IV diuresis x1 today
- GDMT once able to tolerate
- coreg will be held today
- according to outside records was on coreg and lasix
Original Note:
Today's Communication / Plan
-
Requested records again today.
IV Lasix 40mg now and Coreg 3.125mg BID.
Impression / Plan
-
Assessment/Plan: 62 y/o female with emphysema/COPD, hx seizure on meds, anemia, remote hx TX per patient (no stents also per patient, details not clear), CHF (type and details unknown), chronic Mota, ambulatory dysfunction, obesity, cigarette use,
daily ETOH who presented from [place] for fever (106.1) and altered mental status, as well as sats 86%. Apparently, she was recently in [place]- details unclear and records requested and pending. She is being treated for possible sepsis related to
PNA, CAUTI, and decub ulcer.
Suspected septic shock:
-improving, off Levophed and severe fever improved
-on ABX and ID is following
-possible sources PNA, UTI, wound
Cardiomyopathy EF 30-35% - unknown chronicity, type unknown.
-patient reports history of CHF, details unknown, doesn't see cardiology as OP only in hospitals
-GDMT limited (BB/ACEI/ARB/ARNI/MRA) due to hypotension (just off Levophed yesterday) and suspected UTI (SGLT2)
-Will add Coreg 3.125mg BID and monitor
-moderate LE edema noted, will add IV Lasix today and monitor BP
Moderate to severe MR - unknown chronicity
-awaiting records
-monitor volume, weight is up and will likely need diuresis when BP allows
Abnormal troponin:
-suspect acute non-ischemic myocardial injury in setting of acute illness- sepsis, hypotension, hyperthermia
-denies chest pain
ETOH use:
-patient reports 1-2 vodka drinks daily
-recommend total cessation
Anemia:
-acute on chronic
-PRBC administered yesterday, Hgb 7.7 today
COPD:
-still with wheezing/rhonchi
-on O2
-still smokes 1-2 cigs per day, recommended total cessation
Indigestion:
-improved with Tums, Maalox, Protonix.
* Called [facility] and [facility], where she came from, for additional records.
[facility] faxed over discharge summary from her recent [facility] hospitalization, limited info. placed on her chart.
-admitted with hyponatremia, UTI and infected sacral and LE wounds, noted to have hypotension.
-home meds Coreg, Amlodipine and Lasix were held at discharge.
-evaluated by plastic surgery and wound care for wound management.
Physical Exam
Vital Signs/Labs
Vital Signs
Temp Pulse Resp BP Pulse Ox
97.7 F 70 18 110/70 100
07/02/23 03:45 07/02/23 06:00 07/02/23 06:00 07/02/23 06:00 07/02/23 06:00
07/01/23 07/02/23 07/03/23
06:59 06:59 06:59
Actual Weight 131.8 kg 130 kg
07/02/23 04:50
07/02/23 04:50
PT 16.9 Sec (11.4-14.6) H 06/28/23 19:19
INR 1.34 06/28/23 19:19
APTT 36.2 Sec (23.4-35.0) H 06/28/23 19:19
Magnesium 1.4 mg/dl (1.6-2.3) L 06/29/23 03:52
Free T4 0.90 ng/dl (0.78-2.19) 06/30/23 11:43
06/29/23
03:52
Mku-Y-Zwpblqamxzn Pept 7100
LAB Results
06/30/23 06/30/23 07/01/23
11:44 18:09 00:08
Troponin I 0.085 H* 0.065 H* 0.052 H*
Physical Exam
Constitutional: No acute distress and Comfortable
EENT: Anicteric and Moist mucous membranes
Cardiovascular: Rhythm & rate is regular and Systolic murmur present
Respiratory: Respiratory effort normal, Crackles Present and Rhonchi Present
GI: Soft, Non tender and Normal bowel sounds
Neuro/Psych: AO x 3
Other: Skin (warm, dry)
Data Reviewed
-
Date of Service: July 02, 2023
Medical Decision Making: Reviewed Test Results
EKG: Tracing Personally Visualized and interpreted
Echo: Report Reviewed by me
X-Ray/CT/US/MRI/NUC/PET: Report Reviewed by me
Labs: Labs Reviewed by me
Old Records: Reviewed
[2023-07-02] MEDS: THIAMINE INJECTION 100 MG IV (10:29)
[2023-07-02] MEDS: LASIX 40 MG IV (11:21)
[2023-07-02 12:15] LABS: Glucose - Point of Care 111 mg/dl (70-99)
[2023-07-02] MEDS: ATIVAN 0.5 MG PO ×2 (12:40→22:16)
--- NOTE | 2023-07-02 14:12 | W.PN.HOSP.TC ---
Today's Communication/Plan
-
Monitor vital signs and see plan
Monitor hemoglobin
Continue with IV antibiotics
IV Lasix today
Increase gabapentin, start standing Tylenol. Avoid increase in opioids
Assessment / Plan
Assessment / Plan
General: no acute distress
HEENT: dry MM
Respiratory: Other (Decreased at bases - otherwise clear.)
Cardiac: S1/S2 and Regular Rhythm; No Murmur
GI: Other (Morbidly obese.� Mild lower abdominal tenderness.� No rebound / guarding.� Pos BS.)
Musculoskeletal: No Clubbing, No Cyanosis and Other (Induration and increased warmth over the R greater trochanter / hip region.� Pos tenderness.� No appreciable fluctuance.)
Skin: Other (Stage III sacral decub wth some surrounding induration / erythema.)
Neuro: Awake and Alert; No Oriented
Psych: Confused
Suspected septic shock
�- Multiple potential sources including pulmonary (L base pneumonia), (CAUTI), Skin (sacral decub)
Suspect some toxic metabolic encephalopathy secondary to above
was on levophed; now off
�-abx changed to meropenem. ID following
Evaluated by neurology who does not think the fevers are from phenytoin
follow fever curve
�- Obtain records from [facility] to shed light on recent hospitalization, culture data, lab values, etc.
�-hip x-rays were ordered however patient refused
advance diet to fulls
ammonia wnl; B1 pending, normal CK
LLL Pneumonia
Acute on Chronic Hypoxemic Respiratory Failure; on 3 L chronic o2
COPD with possible Acute Exacerbation
started standing and prn nebs; cw IV decadron
�- CXR with possible L base pneumonia and small effusion. + procal
�- IV abx as noted above.
Suspect acute on chronic Anemia of Chronic Disease
some acute on chronic blood loss anemia from sacral decub
Hemoglobin 6.6 on 07/01, s/p 1 unit PRBC 07/01
�- Unknown baseline.� Follow-up recent records from [facility] for comparison.
elevated bnp
per patient unknown if hx of CHF; unknown EF
used to be on lasix but now stopped
Echo 06/29 with EF 30-35%; global hypokinesis; cardiology following
IV lasix given 07/02
heart burn
maalox; PPI
Mild troponin elevation likely non-MO related
Monitor
Chronic Indwelling Mota Catheter
CAUTI
�- UA consistent with infection.� IV abx as noted above.
�- Follow-up culture data.
�- Mota exchanged in the ED
Hyponatremia
Monitor
Hypomagnesemia
Monitor
Leukopenia
Monitor
Avascular Necrosis of the Right Hip
�- Unclear chronicity of this condition.� Patient complains of pain at present and surrounding induration / increased warmth in tissues overlying the hip.
�xrays were ordered however patient refused
per daughter; orthopedics at [facility] has refused surgery until patient loses weight.
Suspect severe anxiety
ativan prn
Abnormal LFTs
monitor
Seizure Disorder
�- Unknown history, most recent seizure, etc.
�- Continue phenytoin and follow for any breakthrough seizures.
Benign Hypertension
DM-II
�- Patient has both listed diagnoses, but on no medications for either.
�- Follow BP / glucose.
�- Cover with SSI as needed.� A1C 5.2
Stage 3 large PI to L buttock extending down to Ischium, small hermosillo eschar, R buttock with small stage 2 PI. R thigh with stage 3 PI
wound care
Chronic Pain Syndrome
Chronic Opioid Dependence
Chronic Bed-Bound Status
�- Continue usual BID morphine; decreased dose. increased gabapentin,started standing tylenol
�- Continue oxycodone PRN - but at decreased dosing.
�- PT / OT evaluations.
�-Suspected bedbound status secondary to avascular necrosis of right hip. per patient its her right hip that she needs surgery which orthopedics at [facility] refused at this time and wants patient to lose weight before
Spoke with daughter in length 06/30 and she also thinks patient has been overly medicated due to her pain medications and this has been sent before by different physicians. I decreased her morphine dose this hospitalization.
Morbid Obesity due to excess calories / immobility
�- Affects all aspects of care.
�- This bed-bound 62y F will not be able to effect significant changes in diet or exercise to realize significant weight loss.
DVT Prophylaxis:� Lovenox
Code Status:� Full
I spent a total of 52 minutes with the patient or on the floor. More than 50% of this time involved counseling and coordination of care.
Anticipated Discharge: > 48 hours
Subjective/Interval History
-
Date of Service: July 02, 2023
has some pain
Objective Data
-
Labs:
Laboratory Results
07/02/23
04:50
WBC 2.7 L
Hgb 7.7 L
Hct 24.9 L
Plt Count 210
Sodium 135
Potassium 4.4
Chloride 107
Carbon Dioxide 22
BUN 15
Creatinine 0.5 L
Glucose 109 H
Calcium 8.4
Total Bilirubin 0.5
AST 51 H
ALT 30
Alkaline Phosphatase 287 H
Vital Signs:
Vital Signs
Temp Pulse Resp BP Pulse Ox
98.3 F 78 18 104/65 92
07/02/23 12:55 07/02/23 13:39 07/02/23 13:39 07/02/23 12:42 07/02/23 13:39
I&O
07/01/23 07/02/23 07/03/23
06:59 06:59 06:59
Intake Total 3070 / 3070 1580 / 1580 300 / 300
Output Total 2100 / 2100 2975 / 2975
Balance 970 / 970 -1395 / -1395 300 / 300
[2023-07-02] MEDS: TYLENOL 1000 MG PO ×2 (14:32→22:15)
--- NOTE | 2023-07-02 14:42 | W.PN.ID1 ---
Date of Service
Date of Service: July 02, 2023
Today's Communication
continue meropenem
follow clinically
Assessment / Plan
# Persistent pruritus without rash, off Vancomycin.
3 hx PCN allergy - swelling/rash
- xerosis?
- Benadryl prn.
# Recent high fever/hyperthermia up to 106F, improving
# Hypotension on 2 pressors
# Possible pneumonia
-Neuro doesn't deem phenytoin as source of fever.
- Bcx's x2 neg to date.
- Ucx from olivares: +yeast (no significance)
- CXR: small L pleural effusion with atelectasis vs PNA
-Urine legionella Ag and Strep pneumo ag negative (not sensitive tests)
-Unable to produce sputum for cx.
- continue meropenem; day 4 abx
- Follow temps.
-Follow acute leukopenia
# Troponin leak
# c/o heartburn - probably cardiac source
-Ordered 1 dose of Maalox
-TTE: EF 30-35%, mod to severe MR
- Cardiology managing
# Exacerbation COPD on chronic O2
-Currently on dexamethasone
# chronic sacral decubitus - clean w/o infection
# Chronic right hip pain avascular necrosis of hip
# Recent hospitalization at [facility]
-Still awaiting outside records
#Additional Past Medical History:
DM2
Morbid Obesity
DANIEL
COPD
Chronic Hypoxemic Respiratory Failure on Home O2
CAD
Anxiety / Depression
Avascular Necrosis R Femoral Head
Chronic olivares
Chronic Pain / Chronic Opioid Dependence
Seizure Disorder
Bedbound
Chief Complaint
-: Fever
Subjective / Review of Systems
remains afebrile
bp stable
mild leukopenia ongoing, no left shift
cr 0.5
blood cultures no growth to date
Vital Signs / Physical Exam
Vital Signs
Vital Signs
Temp Pulse Resp BP Pulse Ox
98.3 F 78 18 104/65 92
07/02/23 12:55 07/02/23 13:39 07/02/23 13:39 07/02/23 12:42 07/02/23 13:39
Physical Exam
Constitutional: Chronically Ill and Obese
Cardiovascular: Regular Rate and S1/S2; Negative Murmur or Rub
Pulmonary: Clear and Symmetric; Negative Wheezes or Rales
Gastrointestinal: Soft, Non Tender, Non Distended and Normal Bowel Sounds
Skin: Warm and Dry; Negative Rash or Jaundice
Objective Data
Lab Data
Lab Results
07/02/23 04:50
07/02/23 04:50
ESR 59 mm/hour (0-20) H 06/28/23 21:36
PT 16.9 Sec (11.4-14.6) H 06/28/23 19:19
INR 1.34 06/28/23 19:19
APTT 36.2 Sec (23.4-35.0) H 06/28/23 19:19
Estimated Creat Clear > 125 ml/min 07/02/23 04:50
Lactic Acid Cancelled 06/28/23 23:15
Total Bilirubin 0.5 mg/dl (0.2-1.3) 07/02/23 04:50
AST 51 U/L (14-36) H 07/02/23 04:50
ALT 30 U/L (0-35) 07/02/23 04:50
Alkaline Phosphatase 287 U/L (38-126) H 07/02/23 04:50
Most recent labs reviewed.
Micro Results:
06/28/23 19:19 Blood Culture - Preliminary
Blood/Venous No Growth in 72 hours- Final report to follow
01/15/24 19:19 Blood Culture - Preliminary
Blood/Venous No Growth in 72 hours- Final report to follow
06/28/23 19:19 Urine Culture - Final
Urine Yeast
06/29/23 03:52 MRSA Screen - Final
Nose No Methicillin Resistant Staphylococcus aureus isolated.
06/29/23 10:13 Legionella Urinary Antigen - Final
Urine Negative for Legionella pneumophila Serogroup 1 antigen.
A negative result does not rule out the possiblity of
Legionella infection due to other serogroups or species of
Legionella. Clinical correlation is recommended.
Streptococcus pneumoniae Antigen (M - Final
Negative for Streptococcus pneumoniae antigen.
A negative result does not exclude infection with
Streptococcus pneumoniae. Clinical correlation is
recommended.
06/28/23 19:19 Influenza Types A & B (AB) - Final
Nasal Swab Negative for Influenza A & B, NAAT
Negative results must be combined with clinical observations
and patient history.
Nucleic Acid Amplification test (NAAT)performed on the
[employer] platform.
06/28/23 19:19 Respiratory Syncytial Virus Culture - Final
Nasal Swab Negative for Respiratory Syncytial Virus.
A false negative result may be obtained with a specimen
collected early in the acute phase. If symptoms persist, a
new specimen should be tested.
06/28/23 CXR: Small left pleural effusion with associated atelectasis and/or pneumonia.
[2023-07-02] MEDS: TYLENOL PO (15:59)
--- NOTE | 2023-07-02 16:18 | PTCARENOTE ---
Addendum entered by Lisa Renee RN 07/02/23 17:26:
Blood pressure is now 101/74 after Midodrine dose.
Original Note:
Patients blood pressure is 87/52 at this time after receiving IV Lasix and IV Dilaudid today. Notified Dr. Fierro. Patient is asymptomatic sitting in chair positin in bed.
--- NOTE | 2023-07-02 16:19 | CM ---
Patient from [facility] with Dx Sepsis, TME, PNA, CAUTI, anemia, Stage III Sacral Decubitus Ulcer. Receiving IV Decadron, IV Abx. Seen by Wound care nurse consult. PT & OT recommends skilled rehab.
Plan return to [facility] when medically ready.
[2023-07-02] MEDS: NEURONTIN 900 MG PO ×2 (16:42→22:15)
[2023-07-02] MEDS: ProAmatine 5 MG PO (16:42)
[2023-07-02] MEDS: LOVENOX 40 MG SC (16:43)
[2023-07-02 16:52] LABS: Glucose - Point of Care 124 mg/dl (70-99)
[2023-07-02 22:08] LABS: Glucose - Point of Care 125 mg/dl (70-99)
[2023-07-02] MEDS: LIPITOR 40 MG PO (22:15)
[2023-07-03] VITALS (12 sets, daily range): BP systolic 84–116; BP diastolic 54–73; BMI 41.2
[2023-07-03] MEDS: DILAUDID 0.5 MG IV ×3 (02:40→21:28)
[2023-07-03] MEDS: DECADRON 4 MG IV ×4 (02:40→19:46)
[2023-07-03] MEDS: MERREM 500 MG IV ×4 (05:00→22:47)
[2023-07-03] MEDS: STERILE WATER FOR INJECTION 10 ML IV ×4 (05:00→22:47)
[2023-07-03 05:05] LABS: % Basophils 0.6 % (0-2); % Eosinophils 0.3 % (0-6); % Immature Granulocytes 1.3 % (0-0.5); % Lymphocytes 26.4 % (20.5-51.1); % Neutrophils 63.4 % (42.2-75.2); Absolute Lymphocytes 0.8 10^3/uL (1.2-3.4); Absolute Monocytes 0.3 10^3/uL (0.1-0.6); Hematocrit 24.6 % (37.0-47.0); Hemoglobin 7.8 g/dL (12.0-16.0); Mean Corp Hgb Conc. 31.7 g/dL (33.0-37.0); Mean Corpuscular Volume 91.4 fL (81.0-99.0); Nucleated Red Blood Cells % 0 %; Platelet Count 218 10^3/uL (130-400); Red Blood Cell Count 2.69 10^6/uL (4.20-5.40); Red Cell Dist. Width 15.9 % (11.5-14.5); White Blood Cell Count 3.1 10^3/uL (4.8-10.8)
[2023-07-03 05:34] LABS: ALT (SGPT) 30 U/L (0-35); AST (SGOT) 59 U/L (14-36); Albumin 2.5 g/dl (3.5-5.0); Alkaline Phosphatase 286 U/L (38-126); Blood Urea Nitrogen 14 mg/dl (7-17); Calcium 8.5 mg/dl (8.4-10.2); Carbon Dioxide 20 mmol/L (22-30); Chloride 107 mmol/L (98-107); Estimated Creatinine Clearance > 125 ml/min; Glucose 110 mg/dl (70-99); Sodium 134 mmol/L (135-145); Total Bilirubin 0.5 mg/dl (0.2-1.3); Total Protein 5.3 g/dl (6.3-8.2); eGFR > 60.00
[2023-07-03 05:45] LABS: Potassium 4.3 mmol/L (3.5-5.1)
--- NOTE | 2023-07-03 06:08 | PTCARENOTE ---
Pt c/o pain throughout the night stating 'it's always a 10/10'. Administered pain medication per order (see MAR). Provided emotional support throughout the night. Pt stated she felt lonely, sad, and was afraid to alone. Used therapeutic
communication with the pt and pt was able to fall asleep. Refused to be turned as frequently as needed despite education provided.
[2023-07-03] MEDS: XOPENEX 1.25 MG INHALANT SOLUTION INH ×3 (07:43→19:49)
[2023-07-03] MEDS: ATROVENT NEBULES 0.5 MG INH ×3 (07:43→19:50)
[2023-07-03] MEDS: FOLVITE 1 MG PO (10:31)
[2023-07-03] MEDS: TYLENOL 1000 MG PO ×3 (10:31→22:46)
[2023-07-03] MEDS: NEURONTIN 900 MG PO ×3 (10:31→22:46)
[2023-07-03] MEDS: ZOLOFT 100 MG PO (10:32)
[2023-07-03] MEDS: DILANTIN 200 MG PO (10:33)
[2023-07-03] MEDS: PROTONIX 40 MG PO (10:33)
[2023-07-03] MEDS: MUCINEX 1200 MG PO ×2 (10:33→19:46)
[2023-07-03] MEDS: MS CONTIN (EXTENDED RELEASE) 15 MG PO ×2 (10:33→19:46)
--- NOTE | 2023-07-03 10:42 | W.PN.CD ---
Today's Communication / Plan
-
- Add standing furosemide. BP won't support more (and may not even support that)
- Worsened cough that is associated with CP with palpation
Impression / Plan
-
Assessment/Plan: 62 y/o female with emphysema/COPD, hx seizure on meds, anemia, remote hx NC per patient (no stents also per patient, details not clear), CHF (type and details unknown), chronic Mota, ambulatory dysfunction, obesity, cigarette use,
daily ETOH who presented from [place] for fever (106.1) and altered mental status, as well as sats 86%. She is being treated for possible sepsis related to PNA, CAUTI, and decub ulcer.
Suspected sepsis:
-improving, off Levophed and severe fever improved
-on ABX and ID is following
-possible sources PNA, UTI, wound
Cardiomyopathy EF 30-35% - unknown chronicity, type unknown.
-patient reports history of CHF, details unknown, doesn't see cardiology as OP only in hospitals -> despite multiple calls we weren't able to get [place] records. We do have [place] records that shows HF meds but no report of LVEF or valves.
-GDMT limited (BB/ACEI/ARB/ARNI/MRA) due to hypotension (just off Levophed yesterday) and suspected UTI (SGLT2)
-add standing furosemide. BP won't support more (and may not even support that)
Moderate to severe MR - unknown chronicity
-awaiting records
-monitor volume, weight is up and will likely need diuresis when BP allows
Abnormal troponin: non-ischemic myocardial injury in setting of acute illness
ETOH use:
-patient reports 1-2 vodka drinks daily
-recommend total cessation
Anemia:
-acute on chronic
-PRBC administered yesterday, Hgb 7.7 today
COPD:
-still with wheezing/rhonchi
-on O2
-still smokes 1-2 cigs per day, recommended total cessation
Indigestion: improved with Tums, Maalox, Protonix.
Subjective: Worsened cough that is associated with CP with palpation
TTE:
Left ventricle is moderately dilated.Moderately reduced left ventricular systolic function.Global hypokinesis.Left ventricular ejection fraction is 30-35%
Moderate-severe mitral regurgitation.
Mild to moderate tricuspid regurgitation. Estimated pulmonary artery pressure of 39 mmHg is moderately elevated.
* Called [facility] and [facility], where she came from, for additional records.
[facility] faxed over discharge summary from her recent [facility] hospitalization, limited info. placed on her chart.
-admitted with hyponatremia, UTI and infected sacral and LE wounds, noted to have hypotension.
-home meds Coreg, Amlodipine and Lasix were held at discharge.
-evaluated by plastic surgery and wound care for wound management.
Physical Exam
Vital Signs/Labs
Vital Signs
Temp Pulse Resp BP Pulse Ox
36.5 C 72 16 105/72 98
07/03/23 07:30 07/03/23 07:47 07/03/23 07:47 07/03/23 06:15 07/03/23 07:47
07/02/23 07/03/23 07/04/23
06:59 06:59 06:59
Actual Weight 286 lb 9.615 oz 287 lb 0.67 oz
07/03/23 04:55
07/03/23 04:55
PT 16.9 Sec (11.4-14.6) H 06/28/23 19:19
INR 1.34 06/28/23 19:19
APTT 36.2 Sec (23.4-35.0) H 06/28/23 19:19
Magnesium 1.4 mg/dl (1.6-2.3) L 06/29/23 03:52
Free T4 0.90 ng/dl (0.78-2.19) 06/30/23 11:43
06/29/23
03:52
Hxv-P-Mlcjcfgbpqw Pept 7100
LAB Results
06/30/23 06/30/23 07/01/23
11:44 18:09 00:08
Troponin I 0.085 H* 0.065 H* 0.052 H*
Physical Exam
Constitutional: No acute distress
EENT: Anicteric and Moist mucous membranes
Cardiovascular: Rhythm & rate is regular, Diastolic murmur absent, Pedal edema present and Systolic murmur present
Respiratory: Respiratory effort normal and Rhonchi Present
GI: Soft, Distention absent and Non tender
Neuro/Psych: Alert and Oriented
Other: Skin
Data Reviewed
-
Date of Service: July 03, 2023
[2023-07-03] MEDS: NOVOLOG FLEXPEN-LOW RESISTANCE SC ×3 (11:05→17:45)
[2023-07-03 11:09] LABS: Glucose - Point of Care 88 mg/dl (70-99)
--- NOTE | 2023-07-03 11:31 | W.PN.ID1 ---
Date of Service
Date of Service: July 03, 2023
Today's Communication
continue meropenem
Assessment / Plan
# Persistent pruritus without rash, off Vancomycin.
3 hx PCN allergy - swelling/rash
- xerosis?
- Benadryl prn.
# Recent high fever/hyperthermia up to 106F, improving
# Hypotension on 2 pressors
# Possible pneumonia
-Neuro doesn't deem phenytoin as source of fever.
- Bcx's x2 neg to date.
- Ucx from olivares: +yeast (no significance)
- CXR: small L pleural effusion with atelectasis vs PNA
-Urine legionella Ag and Strep pneumo ag negative (not sensitive tests)
-Unable to produce sputum for cx.
- continue meropenem; day 4 abx
- Follow temps.
-Follow acute leukopenia
# Troponin leak
# c/o heartburn - probably cardiac source
-Ordered 1 dose of Maalox
-TTE: EF 30-35%, mod to severe MR
- Cardiology managing
# Exacerbation COPD on chronic O2
-Currently on dexamethasone
# chronic sacral decubitus - clean w/o infection
# Chronic right hip pain avascular necrosis of hip
# Recent hospitalization at [facility]
-Still awaiting outside records
#Additional Past Medical History:
DM2
Morbid Obesity
DANIEL
COPD
Chronic Hypoxemic Respiratory Failure on Home O2
CAD
Anxiety / Depression
Avascular Necrosis R Femoral Head
Chronic olivares
Chronic Pain / Chronic Opioid Dependence
Seizure Disorder
Bedbound
Chief Complaint
-: Fever
Subjective / Review of Systems
afebrile
bp soft - similar to previous
leukopenia improving
cr stable
blood cultures no growth to date
Vital Signs / Physical Exam
Vital Signs
Vital Signs
Temp Pulse Resp BP Pulse Ox
97.7 F 65 16 93/54 96
07/03/23 11:04 07/03/23 10:00 07/03/23 10:00 07/03/23 10:00 07/03/23 10:00
Physical Exam
Constitutional: No Acute Distress
Cardiovascular: Regular Rate
Pulmonary: Symmetric and Non Labored
Skin: Dry; Negative Rash or Jaundice
Neurological: Awake
Objective Data
Lab Data
Lab Results
07/03/23 04:55
07/03/23 04:55
ESR 59 mm/hour (0-20) H 06/28/23 21:36
PT 16.9 Sec (11.4-14.6) H 06/28/23 19:19
INR 1.34 06/28/23 19:19
APTT 36.2 Sec (23.4-35.0) H 06/28/23 19:19
Estimated Creat Clear > 125 ml/min 07/03/23 04:55
Lactic Acid Cancelled 06/28/23 23:15
Total Bilirubin 0.5 mg/dl (0.2-1.3) 07/03/23 04:55
AST 59 U/L (14-36) H 07/03/23 04:55
ALT 30 U/L (0-35) 07/03/23 04:55
Alkaline Phosphatase 286 U/L (38-126) H 07/03/23 04:55
Most recent labs reviewed.
Micro Results:
06/28/23 19:19 Blood Culture - Preliminary
Blood/Venous No Growth in 4 days- Final report to follow
06/28/23 19:19 Blood Culture - Preliminary
Blood/Venous No Growth in 4 days- Final report to follow
06/28/23 19:19 Urine Culture - Final
Urine Yeast
06/29/23 03:52 MRSA Screen - Final
Nose No Methicillin Resistant Staphylococcus aureus isolated.
06/29/23 10:13 Legionella Urinary Antigen - Final
Urine Negative for Legionella pneumophila Serogroup 1 antigen.
A negative result does not rule out the possiblity of
Legionella infection due to other serogroups or species of
Legionella. Clinical correlation is recommended.
Streptococcus pneumoniae Antigen (M - Final
Negative for Streptococcus pneumoniae antigen.
A negative result does not exclude infection with
Streptococcus pneumoniae. Clinical correlation is
recommended.
06/28/23 19:19 Influenza Types A & B (AB) - Final
Nasal Swab Negative for Influenza A & B, NAAT
Negative results must be combined with clinical observations
and patient history.
Nucleic Acid Amplification test (NAAT)performed on the
[employer] platform.
06/28/23 19:19 Respiratory Syncytial Virus Culture - Final
Nasal Swab Negative for Respiratory Syncytial Virus.
A false negative result may be obtained with a specimen
collected early in the acute phase. If symptoms persist, a
new specimen should be tested.
06/28/23 CXR: Small left pleural effusion with associated atelectasis and/or pneumonia.
[2023-07-03 13:28] LABS: Glucose - Point of Care 120 mg/dl (70-99)
--- NOTE | 2023-07-03 13:42 | W.PN.HOSP.TC ---
Today's Communication/Plan
-
Monitor vital signs and see plan
cw abx
monitor with pain meds
midodrine if needed
Assessment / Plan
Assessment / Plan
General: no acute distress
HEENT: dry MM
Respiratory: Other (Decreased at bases - otherwise clear.)
Cardiac: S1/S2 and Regular Rhythm; No Murmur
GI: Other (Morbidly obese.� Mild lower abdominal tenderness.� No rebound / guarding.� Pos BS.)
Musculoskeletal: No Clubbing, No Cyanosis and Other (Induration and increased warmth over the R greater trochanter / hip region.� Pos tenderness.� No appreciable fluctuance.)
Skin: Other (Stage III sacral decub wth some surrounding induration / erythema.)
Neuro: Awake and Alert; No Oriented
Psych: Confused
Suspected septic shock
�- Multiple potential sources including pulmonary (L base pneumonia), (CAUTI), Skin (sacral decub)
Suspect some toxic metabolic encephalopathy secondary to above
was on levophed; now off
�-abx changed to meropenem. ID following
Evaluated by neurology who does not think the fevers are from phenytoin
follow fever curve
�- Obtain records from [facility] to shed light on recent hospitalization, culture data, lab values, etc. still awaiting
�-hip x-rays were ordered however patient refused
ammonia wnl; B1 pending, normal CK
LLL Pneumonia
Acute on Chronic Hypoxemic Respiratory Failure; on 3 L chronic o2
COPD with possible Acute Exacerbation
started standing and prn nebs; cw IV decadron
�- CXR with possible L base pneumonia and small effusion. + procal
�- IV abx as noted above.
Suspect acute on chronic Anemia of Chronic Disease
some acute on chronic blood loss anemia from sacral decub
Hemoglobin 6.6 on 07/01, s/p 1 unit PRBC 07/01
�- Unknown baseline.� Follow-up recent records from [facility] for comparison.
elevated bnp
per patient unknown if hx of CHF; unknown EF
used to be on lasix but now stopped
Echo 06/29 with EF 30-35%; global hypokinesis; cardiology following
IV lasix given 07/02. periods of hypotension so be cautious
heart burn
maalox; PPI
Mild troponin elevation likely non-[place] related
Monitor
Chronic Indwelling Mota Catheter
CAUTI
�- UA consistent with infection.� IV abx as noted above.
�- Follow-up culture data.
�- Mota exchanged in the ED
Hyponatremia
Monitor
Hypomagnesemia
Monitor
Leukopenia
Monitor
Avascular Necrosis of the Right Hip
�- Unclear chronicity of this condition.� Patient complains of pain at present and surrounding induration / increased warmth in tissues overlying the hip.
�xrays were ordered however patient refused
per daughter; orthopedics at [facility] has refused surgery until patient loses weight.
Suspect severe anxiety
ativan prn
Abnormal LFTs
monitor
Seizure Disorder
�- Unknown history, most recent seizure, etc.
�- Continue phenytoin and follow for any breakthrough seizures.
Benign Hypertension
DM-II
�- Patient has both listed diagnoses, but on no medications for either.
�- Follow BP / glucose.
�- Cover with SSI as needed.� A1C 5.2
Stage 3 large PI to L buttock extending down to Ischium, small hermosillo eschar, R buttock with small stage 2 PI. R thigh with stage 3 PI
wound care
Chronic Pain Syndrome
Chronic Opioid Dependence
Chronic Bed-Bound Status
�- Continue usual BID morphine; decreased dose. increased gabapentin,started standing tylenol
�- Continue oxycodone PRN - but at decreased dosing.
�- PT / OT evaluations.
�-Suspected bedbound status secondary to avascular necrosis of right hip. per patient its her right hip that she needs surgery which orthopedics at [facility] refused at this time and wants patient to lose weight before
Spoke with daughter in length 06/30 and she also thinks patient has been overly medicated due to her pain medications and this has been sent before by different physicians. I decreased her morphine dose this hospitalization.
Morbid Obesity due to excess calories / immobility
�- Affects all aspects of care.
�- This bed-bound 62y F will not be able to effect significant changes in diet or exercise to realize significant weight loss.
DVT Prophylaxis:� Lovenox
Code Status:� Full
I spent a total of 53 minutes with the patient or on the floor. More than 50% of this time involved counseling and coordination of care.
Anticipated Discharge: > 48 hours
Subjective/Interval History
-
Date of Service: July 03, 2023
denies nausea
Objective Data
-
Labs:
Laboratory Results
07/03/23
04:55
WBC 3.1 L
Hgb 7.8 L
Hct 24.6 L
Plt Count 218
Sodium 134 L
Potassium 4.3
Chloride 107
Carbon Dioxide 20 L
BUN 14
Creatinine 0.5 L
Glucose 110 H
Calcium 8.5
Total Bilirubin 0.5
AST 59 H
ALT 30
Alkaline Phosphatase 286 H
Vital Signs:
Vital Signs
Temp Pulse Resp BP Pulse Ox
97.7 F 65 16 93/54 96
07/03/23 11:04 07/03/23 10:00 07/03/23 10:00 07/03/23 10:00 07/03/23 10:00
I&O
07/02/23 07/03/23 07/04/23
06:59 06:59 06:59
Intake Total 1580 / 1580 1020 / 1020
Output Total 2975 / 2975 2400 / 2400 700 / 700
Balance -1395 / -1395 -1380 / -1380 -700 / -700
[2023-07-03] MEDS: ProAmatine 5 MG PO (14:35)
[2023-07-03] MEDS: ROXICODONE 10 MG PO (15:09)
[2023-07-03] MEDS: LOVENOX 40 MG SC (17:01)
[2023-07-03 18:15] LABS: Glucose - Point of Care 100 mg/dl (70-99)
[2023-07-03] MEDS: ATIVAN 0.5 MG PO (19:46)
[2023-07-03] MEDS: LIPITOR 40 MG PO (22:47)
[2023-07-04] VITALS (12 sets, daily range): BP systolic 74–122; BP diastolic 58–79; BMI 41.6
[2023-07-04] MEDS: DILAUDID 0.5 MG IV ×6 (01:55→22:28)
[2023-07-04 02:11] LABS: Glucose - Point of Care 122 mg/dl (70-99)
[2023-07-04] MEDS: DECADRON 4 MG IV ×4 (03:56→23:32)
[2023-07-04] MEDS: STERILE WATER FOR INJECTION 10 ML IV ×4 (03:56→21:24)
[2023-07-04] MEDS: MERREM 500 MG IV ×4 (03:56→21:24)
[2023-07-04 04:54] LABS: % Basophils 0.6 % (0-2); % Eosinophils 1.2 % (0-6); % Immature Granulocytes 1.4 % (0-0.5); % Lymphocytes 34.2 % (20.5-51.1); % Monocytes 7.6 % (1.7-9.3); Absolute Eosinophils 0.1 10^3/uL (0-0.7); Absolute Immature Granulocytes 0.1 10^3/uL (0-0.05); Absolute Lymphocytes 1.7 10^3/uL (1.2-3.4); Absolute Monocytes 0.4 10^3/uL (0.1-0.6); Absolute Neutrophils 2.7 10^3/uL (1.4-6.5); Hematocrit 24.9 % (37.0-47.0); Hemoglobin 7.8 g/dL (12.0-16.0); Mean Corp Hgb Conc. 31.3 g/dL (33.0-37.0); Mean Corpuscular Hgb 29.2 pg (27.0-31.0); Mean Corpuscular Volume 93.3 fL (81.0-99.0); Nucleated Red Blood Cells % 0 %; Platelet Count 277 10^3/uL (130-400); Red Blood Cell Count 2.67 10^6/uL (4.20-5.40); Red Cell Dist. Width 15.9 % (11.5-14.5); White Blood Cell Count 4.9 10^3/uL (4.8-10.8)
[2023-07-04 05:16] LABS: ALT (SGPT) 29 U/L (0-35); AST (SGOT) 61 U/L (14-36); Albumin 2.8 g/dl (3.5-5.0); Alkaline Phosphatase 271 U/L (38-126); Blood Urea Nitrogen 12 mg/dl (7-17); Calcium 8.3 mg/dl (8.4-10.2); Carbon Dioxide 23 mmol/L (22-30); Chloride 110 mmol/L (98-107); Estimated Creatinine Clearance > 125 ml/min; Glucose 85 mg/dl (70-99); Sodium 134 mmol/L (135-145); Total Bilirubin 0.5 mg/dl (0.2-1.3); Total Protein 5.5 g/dl (6.3-8.2); eGFR > 60.00
[2023-07-04 05:22] LABS: Potassium 4.6 mmol/L (3.5-5.1)
[2023-07-04] MEDS: XOPENEX 1.25 MG INHALANT SOLUTION INH ×3 (08:02→20:17)
[2023-07-04] MEDS: ATROVENT NEBULES 0.5 MG INH ×3 (08:02→20:17)
[2023-07-04 08:31] LABS: Vitamin B1, Whole Blood 68 nmol/L (70-180)
[2023-07-04] MEDS: ZOLOFT 100 MG PO (09:31)
[2023-07-04] MEDS: MUCINEX 1200 MG PO ×2 (09:31→20:06)
[2023-07-04] MEDS: FOLVITE 1 MG PO (09:31)
[2023-07-04] MEDS: MS CONTIN (EXTENDED RELEASE) 15 MG PO ×2 (09:31→20:05)
[2023-07-04] MEDS: NEURONTIN 900 MG PO ×3 (09:32→21:25)
[2023-07-04] MEDS: PROTONIX 40 MG PO (09:32)
[2023-07-04] MEDS: DILANTIN 200 MG PO (09:32)
[2023-07-04] MEDS: TYLENOL 1000 MG PO ×3 (09:32→21:24)
[2023-07-04] MEDS: NOVOLOG FLEXPEN-LOW RESISTANCE SC ×3 (09:39→17:34)
[2023-07-04 09:47] LABS: Glucose - Point of Care 131 mg/dl (70-99)
[2023-07-04 12:41] LABS: Glucose - Point of Care 119 mg/dl (70-99)
--- NOTE | 2023-07-04 13:33 | W.PN.HOSP.TC ---
Today's Communication/Plan
-
Monitor vitals
See plan
Continue with antibiotics
PT/OT
Diuresis if able given soft blood pressures intermittently
monitor hgb
Assessment / Plan
Assessment / Plan
General: no acute distress
HEENT: dry MM
Respiratory: Other (Decreased at bases - otherwise clear.)
Cardiac: S1/S2 and Regular Rhythm; No Murmur
GI: Other (Morbidly obese.� Mild lower abdominal tenderness.� No rebound / guarding.� Pos BS.)
Musculoskeletal: No Clubbing, No Cyanosis and Other (Induration and increased warmth over the R greater trochanter / hip region.� Pos tenderness.� No appreciable fluctuance.)
Skin: Other (Stage III sacral decub wth some surrounding induration / erythema.)
Neuro: Awake and Alert; No Oriented
Psych: Confused
Suspected septic shock
�- Multiple potential sources including pulmonary (L base pneumonia), (CAUTI), Skin (sacral decub)
Suspect some toxic metabolic encephalopathy secondary to above
was on levophed; now off
�-abx changed to meropenem. ID following
Evaluated by neurology who does not think the fevers are from phenytoin
follow fever curve
�- Obtain records from [facility] to shed light on recent hospitalization, multiple calls but still waiting on records from [facility].
�-hip x-rays were ordered however patient refused
ammonia wnl; B1 pending, normal CK
LLL Pneumonia
Acute on Chronic Hypoxemic Respiratory Failure; on 3 L chronic o2
COPD with possible Acute Exacerbation
started standing and prn nebs; cw IV decadron, decreased to 4 every 8hrs
�- CXR with possible L base pneumonia and small effusion. + procal
�- IV abx as noted above.
Suspect acute on chronic Anemia of Chronic Disease
some acute on chronic blood loss anemia from sacral decub
Hemoglobin 6.6 on 07/01, s/p 1 unit PRBC 1/18
�- Unknown baseline.� Follow-up recent records from [facility] for comparison.
elevated bnp
per patient unknown if hx of CHF; unknown EF
used to be on lasix but now stopped
Echo 06/29 with EF 30-35%; global hypokinesis; cardiology following
IV lasix given 07/02. periods of hypotension so monitor closely
heart burn
maalox; PPI
Mild troponin elevation likely non-[place] related
Monitor
Chronic Indwelling Mota Catheter
CAUTI
�- UA consistent with infection.� IV abx as noted above.
�- Follow-up culture data.
�- Mota exchanged in the ED
Hyponatremia
Monitor
Hypomagnesemia
Monitor
Leukopenia
Monitor
Avascular Necrosis of the Right Hip
�- Unclear chronicity of this condition.� Patient complains of pain at present and surrounding induration / increased warmth in tissues overlying the hip.
�xrays were ordered however patient refused
per daughter; orthopedics at [facility] has refused surgery until patient loses weight.
Suspect severe anxiety
ativan prn
Abnormal LFTs
monitor
Seizure Disorder
�- Unknown history, most recent seizure, etc.
�- Continue phenytoin and follow for any breakthrough seizures.
Benign Hypertension
DM-II
�- Patient has both listed diagnoses, but on no medications for either.
�- Follow BP / glucose.
�- Cover with SSI as needed.� A1C 5.2
Stage 3 large PI to L buttock extending down to Ischium, small hermosillo eschar, R buttock with small stage 2 PI. R thigh with stage 3 PI
wound care
Chronic Pain Syndrome
Chronic Opioid Dependence
Chronic Bed-Bound Status
�- Continue usual BID morphine; decreased dose. increased gabapentin,started standing tylenol
�- Continue oxycodone PRN - but at decreased dosing.
�- PT / OT evaluations.
�-Suspected bedbound status secondary to avascular necrosis of right hip. per patient its her right hip that she needs surgery which orthopedics at [facility] refused at this time and wants patient to lose weight before
Spoke with daughter in length 06/30 and she also thinks patient has been overly medicated due to her pain medications and this has been sent before by different physicians. I decreased her morphine dose this hospitalization.
Morbid Obesity due to excess calories / immobility
�- Affects all aspects of care.
�- This bed-bound 62y F will not be able to effect significant changes in diet or exercise to realize significant weight loss.
DVT Prophylaxis:� Lovenox
Code Status:� Full
I spent a total of 52 minutes with the patient or on the floor. More than 50% of this time involved counseling and coordination of care.
Anticipated Discharge: > 48 hours
Subjective/Interval History
-
Date of Service: July 04, 2023
has some pain
Objective Data
-
Labs:
Laboratory Results
07/04/23
04:22
WBC 4.9
Hgb 7.8 L
Hct 24.9 L
Plt Count 277 D
Sodium 134 L
Potassium 4.6
Chloride 110 H
Carbon Dioxide 23
BUN 12
Creatinine 0.5 L
Glucose 85
Calcium 8.3 L
Total Bilirubin 0.5
AST 61 H
ALT 29
Alkaline Phosphatase 271 H
Vital Signs:
Vital Signs
Temp Pulse Resp BP Pulse Ox
97.3 F 67 20 94/58 95
07/04/23 07:55 07/04/23 13:29 07/04/23 13:29 07/04/23 10:00 07/04/23 13:29
I&O
07/03/23 07/04/23 07/05/23
06:59 06:59 06:59
Intake Total 1020 / 1020 480 / 480
Output Total 2400 / 2400 700 / 700 1100 / 1100
Balance -1380 / -1380 -700 / -700 -620 / -620
[2023-07-04] MEDS: LOVENOX 40 MG SC (17:33)
[2023-07-04 17:43] LABS: Glucose - Point of Care 113 mg/dl (70-99)
[2023-07-04] MEDS: LIPITOR 40 MG PO (21:24)
[2023-07-04 21:34] LABS: Glucose - Point of Care 127 mg/dl (70-99)
[2023-07-04] MEDS: ATIVAN 0.5 MG PO (23:34)
[2023-07-05] VITALS (15 sets, daily range): BP systolic 93–120; BP diastolic 48–87; PULSE 70; O2SAT 96; BMI 41.7
[2023-07-05] MEDS: DILAUDID 0.5 MG IV ×5 (02:42→21:34)
[2023-07-05] MEDS: MERREM 500 MG IV (03:48)
[2023-07-05] MEDS: STERILE WATER FOR INJECTION 10 ML IV (03:48)
[2023-07-05] MEDS: ATROVENT NEBULES 0.5 MG INH ×3 (07:28→20:28)
[2023-07-05] MEDS: XOPENEX 1.25 MG INHALANT SOLUTION INH ×3 (07:28→20:28)
[2023-07-05 07:30] LABS: % Basophils 0.7 % (0-2); % Eosinophils 1.6 % (0-6); % Immature Granulocytes 3.9 % (0-0.5); % Lymphocytes 27.7 % (20.5-51.1); % Monocytes 8.1 % (1.7-9.3); Absolute Eosinophils 0.1 10^3/uL (0-0.7); Absolute Immature Granulocytes 0.2 10^3/uL (0-0.05); Absolute Lymphocytes 1.6 10^3/uL (1.2-3.4); Absolute Monocytes 0.5 10^3/uL (0.1-0.6); Absolute Neutrophils 3.3 10^3/uL (1.4-6.5); Hematocrit 24.4 % (37.0-47.0); Hemoglobin 7.5 g/dL (12.0-16.0); Mean Corp Hgb Conc. 30.7 g/dL (33.0-37.0); Mean Corpuscular Hgb 29.2 pg (27.0-31.0); Mean Corpuscular Volume 94.9 fL (81.0-99.0); Nucleated Red Blood Cells % 0 %; Platelet Count 302 10^3/uL (130-400); Red Blood Cell Count 2.57 10^6/uL (4.20-5.40); Red Cell Dist. Width 15.9 % (11.5-14.5); White Blood Cell Count 5.7 10^3/uL (4.8-10.8)
[2023-07-05 07:35] LABS: Glucose - Point of Care 99 mg/dl (70-99)
[2023-07-05 07:42] LABS: ALT (SGPT) 28 U/L (0-35); AST (SGOT) 59 U/L (14-36); Albumin 2.5 g/dl (3.5-5.0); Alkaline Phosphatase 232 U/L (38-126); Blood Urea Nitrogen 11 mg/dl (7-17); Calcium 8.2 mg/dl (8.4-10.2); Carbon Dioxide 24 mmol/L (22-30); Chloride 106 mmol/L (98-107); Estimated Creatinine Clearance > 125 ml/min; Glucose 95 mg/dl (70-99); Potassium 4.6 mmol/L (3.5-5.1); Sodium 135 mmol/L (135-145); Total Bilirubin 0.4 mg/dl (0.2-1.3); eGFR > 60.00
[2023-07-05] MEDS: NOVOLOG FLEXPEN-LOW RESISTANCE SC ×3 (07:55→17:01)
[2023-07-05] MEDS: DECADRON 4 MG IV ×3 (07:55→23:24)
[2023-07-05] MEDS: NEURONTIN 900 MG PO ×3 (07:55→21:34)
[2023-07-05] MEDS: MUCINEX 1200 MG PO ×2 (07:56→19:14)
[2023-07-05] MEDS: ZOLOFT 100 MG PO (07:56)
[2023-07-05] MEDS: MS CONTIN (EXTENDED RELEASE) 15 MG PO ×2 (07:56→19:14)
[2023-07-05] MEDS: FOLVITE 1 MG PO (07:56)
[2023-07-05] MEDS: PROTONIX 40 MG PO (07:56)
[2023-07-05] MEDS: TYLENOL 1000 MG PO ×3 (07:56→21:34)
[2023-07-05] MEDS: DILANTIN 200 MG PO (07:56)
--- NOTE | 2023-07-05 08:41 | W.PN.CD ---
Today's Communication / Plan
-
will start with lasix 20mg IV x1, and trend BP, labs, weight
Impression / Plan
-
Assessment/Plan: 62 y/o female with emphysema/COPD, hx seizure on meds, anemia, remote hx [place] per patient (no stents also per patient, details not clear), CHF (type and details unknown), chronic Mota, ambulatory dysfunction, obesity, cigarette use,
daily ETOH who presented from [place] for fever (106.1) and altered mental status, as well as sats 86%. She is being treated for possible sepsis related to PNA, CAUTI, and decub ulcer.
Suspected sepsis:
-improved, now off Levophed and severe fever improved
-on ABX and ID is following
-possible sources PNA, UTI, wound
Cardiomyopathy EF 30-35% - with acute systolic HF
-patient reports history of CHF, details unknown, doesn't see cardiology as OP only in hospitals -> despite multiple calls we weren't able to get [place] records. We do have [facility] records that shows HF meds but no report of LVEF or valves.
-GDMT limited (BB/ACEI/ARB/ARNI/MRA) due to hypotension (required levophed) and suspected UTI (SGLT2)
-will start with lasix 20mg IV x1, and trend BP, labs, weight
Moderate to severe MR - unknown chronicity
-diuresis as above
Abnormal troponin: non-ischemic myocardial injury in setting of acute illness
ETOH use:
-patient reports 1-2 vodka drinks daily
-recommend total cessation
Anemia:
-acute on chronic
-PRBC administered yesterday, Hgb 7.7 today
COPD:
-still with wheezing/rhonchi
-on O2
-still smokes 1-2 cigs per day, recommended total cessation
Indigestion: improved with Tums, Maalox, Protonix.
Subjective:
SOB better. Edema continues.
TTE:
Left ventricle is moderately dilated.Moderately reduced left ventricular systolic function.Global hypokinesis.Left ventricular ejection fraction is 30-35%
Moderate-severe mitral regurgitation.
Mild to moderate tricuspid regurgitation. Estimated pulmonary artery pressure of 39 mmHg is moderately elevated.
* Called [facility] and [facility], where she came from, for additional records.
[facility] faxed over discharge summary from her recent [facility] hospitalization, limited info. placed on her chart.
-admitted with hyponatremia, UTI and infected sacral and LE wounds, noted to have hypotension.
-home meds Coreg, Amlodipine and Lasix were held at discharge.
-evaluated by plastic surgery and wound care for wound management.
Physical Exam
Vital Signs/Labs
Vital Signs
Temp Pulse Resp BP Pulse Ox
98.8 F 64 16 115/87 100
07/05/23 03:28 07/05/23 07:30 07/05/23 07:30 07/05/23 04:00 07/05/23 07:30
07/04/23 07/05/23 07/06/23
06:59 06:59 06:59
Actual Weight 131.5 kg 131.9 kg
07/05/23 06:14
07/05/23 06:14
PT 16.9 Sec (11.4-14.6) H 06/28/23 19:19
INR 1.34 06/28/23 19:19
APTT 36.2 Sec (23.4-35.0) H 06/28/23 19:19
Magnesium 1.4 mg/dl (1.6-2.3) L 06/29/23 03:52
Free T4 0.90 ng/dl (0.78-2.19) 06/30/23 11:43
06/29/23
03:52
Xgp-G-Vzuoaedpcyh Pept 7100
Physical Exam
Constitutional: No acute distress and Comfortable
EENT: Moist mucous membranes
Cardiovascular: Rhythm & rate is regular, Pedal edema present, JVD present and Systolic murmur present
Respiratory: Respiratory effort normal and Wheeze Present
GI: Soft and Distention absent
Neuro/Psych: AO x 3
Data Reviewed
-
Date of Service: July 05, 2023
EKG: Other (Tele: SR 60s)
Labs: Labs Reviewed by me
[2023-07-05] MEDS: LASIX 20 MG IV (08:52)
--- NOTE | 2023-07-05 10:05 | W.PN.ID1 ---
Date of Service
Date of Service: July 05, 2023
Today's Communication
DC meropenem; completed 7 days of abx
ID will sign off. Call prn.
Assessment / Plan
# Persistent pruritus without rash, unclear source
-?Xerosis
- Moisturizer and Benadryl prn.
# s/p Recent high fever/hyperthermia up to 106F - resolved
# Hypotension -resolved
# Possible pneumonia
-Neuro doesn't deem phenytoin as source of fever.
- Bcx's x2 neg to date.
- Ucx from olivares: +yeast (not significant). Olivares changed in ED
- CXR: small L pleural effusion with atelectasis vs PNA
-Urine legionella Ag and Strep pneumo ag negative (not sensitive tests)
- DC meropenem; completed 7 days of abx
# Troponin leak
# c/o heartburn - probably cardiac source
-Ordered 1 dose of Maalox
-TTE: EF 30-35%, mod to severe MR
- Cardiology managing
# Exacerbation COPD on chronic O2
-Currently on dexamethasone
# chronic sacral decubitus - clean w/o infection
# Chronic right hip pain avascular necrosis of hip
#Additional Past Medical History:
DM2
Morbid Obesity
DANIEL
COPD
Chronic Hypoxemic Respiratory Failure on Home O2
CAD
Anxiety / Depression
Avascular Necrosis R Femoral Head
Chronic olivares
Chronic Pain / Chronic Opioid Dependence
Seizure Disorder
Bedbound
Chief Complaint
-: Fever
Subjective / Review of Systems
still with diffuse itching.
cough/SOB much better.
Vital Signs / Physical Exam
Vital Signs
Vital Signs
Temp Pulse Resp BP Pulse Ox
97.5 F 64 16 115/87 97
07/05/23 07:35 07/05/23 07:30 07/05/23 07:30 07/05/23 04:00 07/05/23 08:47
Physical Exam
Constitutional: No Acute Distress
Eyes: Sclera Anicteric
Cardiovascular: Regular Rate and S1/S2
Pulmonary: Other (decreased BS bases)
Gastrointestinal: Soft, Non Tender and Non Distended
Genito-Urinary: Olivares and Clear Urine
Extremities: Edema
Skin: Negative Rash
Neurological: AO x 3
Objective Data
Lab Data
Lab Results
07/05/23 06:14
07/05/23 06:14
ESR 59 mm/hour (0-20) H 06/28/23 21:36
PT 16.9 Sec (11.4-14.6) H 06/28/23 19:19
INR 1.34 06/28/23 19:19
APTT 36.2 Sec (23.4-35.0) H 06/28/23 19:19
Estimated Creat Clear > 125 ml/min 07/05/23 06:14
Lactic Acid Cancelled 06/28/23 23:15
Total Bilirubin 0.4 mg/dl (0.2-1.3) 07/05/23 06:14
AST 59 U/L (14-36) H 07/05/23 06:14
ALT 28 U/L (0-35) 07/05/23 06:14
Alkaline Phosphatase 232 U/L (38-126) H 07/05/23 06:14
Most recent labs reviewed.
Micro Results:
06/28/23 19:19 Blood Culture - Final
Blood/Venous No Growth - Final Report
06/28/23 19:19 Blood Culture - Final
Blood/Venous No Growth - Final Report
06/28/23 19:19 Urine Culture - Final
Urine Yeast
06/29/23 03:52 MRSA Screen - Final
Nose No Methicillin Resistant Staphylococcus aureus isolated.
06/29/23 10:13 Legionella Urinary Antigen - Final
Urine Negative for Legionella pneumophila Serogroup 1 antigen.
A negative result does not rule out the possiblity of
Legionella infection due to other serogroups or species of
Legionella. Clinical correlation is recommended.
Streptococcus pneumoniae Antigen (M - Final
Negative for Streptococcus pneumoniae antigen.
A negative result does not exclude infection with
Streptococcus pneumoniae. Clinical correlation is
recommended.
06/28/23 19:19 Influenza Types A & B (AB) - Final
Nasal Swab Negative for Influenza A & B, NAAT
Negative results must be combined with clinical observations
and patient history.
Nucleic Acid Amplification test (NAAT)performed on the
[employer] platform.
06/28/23 19:19 Respiratory Syncytial Virus Culture - Final
Nasal Swab Negative for Respiratory Syncytial Virus.
A false negative result may be obtained with a specimen
collected early in the acute phase. If symptoms persist, a
new specimen should be tested.
06/28/23 CXR: Small left pleural effusion with associated atelectasis and/or pneumonia.
[2023-07-05] MEDS: MERREM IV (10:11)
[2023-07-05] MEDS: STERILE WATER FOR INJECTION IV (10:11)
--- NOTE | 2023-07-05 10:25 | PTCARENOTE ---
Assumed care of patient at beginning of this shift from previous RN. Ox3 but anxious/tearful at times and needs encouragement. POx 94-97% on RA; patient wears oxygen at night at baseline. She c/o pain 10/10 on her R side which she states was not
relieved by scheduled dose of MS Contin 15mg po; administered Dilaudid 0.5mg IV prn as ordered. Lungs sounds on initial assessment were coarse with ins/exp wheezing, and scattered rhonci; nebulizer given by resp therapist. Needs encouragement with
turning/repositioning; understands the importance d/t current pressure ulcer and prevention of further breakdown. Lasix 20mg IV ordered by cardiology, which was given, and f/u BP 101/60. See worklist for full assessment and vital signs; see MAR for
med administration.
[2023-07-05] MEDS: ATIVAN 0.5 MG PO ×2 (11:33→23:24)
[2023-07-05] MEDS: ROXICODONE 10 MG PO (11:33)
[2023-07-05] MEDS: SENOKOT-S 1 TABLET PO ×2 (12:08→19:14)
[2023-07-05 12:19] LABS: Glucose - Point of Care 113 mg/dl (70-99)
--- NOTE | 2023-07-05 15:35 | PTOTSP ---
pt has not progressed in therapy, pain increasing despite medication, encouragement. no OT goals at this time, will sign off due to inability to participate. RN notified.
--- NOTE | 2023-07-05 15:39 | PTOTSP ---
Patient verbally aggressive and tearful throughout session, escalating agitation and loud moaning during session. Was not receptive to calm and gentle education for participation and importance of participation.
Not safe to progress functional mobility and patient is not receptive to minimal, baseline mobility at this time.
Will discharge from caseload.
--- NOTE | 2023-07-05 16:31 | W.PN.HOSP.TC ---
Today's Communication/Plan
-
see plan
Assessment / Plan
Assessment / Plan
Suspected septic shock
�- Multiple potential sources including pulmonary (L base pneumonia), (CAUTI), Skin (sacral decub)
Suspect some toxic metabolic encephalopathy secondary to above
was on levophed; now off
�-completed 7 days of meropenem per ID. observe off abx.
Evaluated by neurology who does not think the fevers are from phenytoin
follow fever curve
�- Obtain records from [facility] to shed light on recent hospitalization, multiple calls but still waiting on records from [facility].
�-hip x-rays were ordered however patient refused
ammonia wnl; normal CK
LLL Pneumonia
Acute on Chronic Hypoxemic Respiratory Failure; on 3 L chronic o2
COPD with possible Acute Exacerbation
started standing and prn nebs; cw IV decadron, decreased to 4 every 8hrs
�- CXR with possible L base pneumonia and small effusion. + procal
�- IV abx completed per ID.
Suspect acute on chronic Anemia of Chronic Disease
some acute on chronic blood loss anemia from sacral decub
Hemoglobin 6.6 on 07/01, s/p 1 unit PRBC 07/01
�- Unknown baseline.� Follow-up recent records from [facility] for comparison.
acute systolic HF.
per patient unknown if hx of CHF; unknown EF
used to be on lasix but now stopped
Echo 06/29 with EF 30-35%; global hypokinesis; cardiology following
IV lasix given 07/02. periods of hypotension so monitor closely. additional dose 07/05 of IV lasix.
heart burn
maalox; PPI
Mild troponin elevation likely non-[place] related
Monitor
Chronic Indwelling Mota Catheter
CAUTI
�- UA consistent with infection.� IV abx as noted above.
�- Follow-up culture data.
�- Mota exchanged in the ED
Hyponatremia
Monitor
Hypomagnesemia
Monitor
Leukopenia
Monitor
Avascular Necrosis of the Right Hip
�- Unclear chronicity of this condition.� Patient complains of pain at present and surrounding induration / increased warmth in tissues overlying the hip.
�xrays were ordered however patient refused
per daughter; orthopedics at [facility] has refused surgery until patient loses weight.
Suspect severe anxiety
ativan prn
Abnormal LFTs
monitor
Seizure Disorder
�- Unknown history, most recent seizure, etc.
�- Continue phenytoin and follow for any breakthrough seizures.
Benign Hypertension
DM-II
�- Patient has both listed diagnoses, but on no medications for either.
�- Follow BP / glucose.
�- Cover with SSI as needed.� A1C 5.2
Stage 3 large PI to L buttock extending down to Ischium, small hermosillo eschar, R buttock with small stage 2 PI. R thigh with stage 3 PI
wound care
Chronic Pain Syndrome
Chronic Opioid Dependence
Chronic Bed-Bound Status
�- Continue usual BID morphine; decreased dose. increased gabapentin,started standing tylenol
�- Continue oxycodone PRN - but at decreased dosing.
�- PT / OT evaluations.
�-Suspected bedbound status secondary to avascular necrosis of right hip. per patient its her right hip that she needs surgery which orthopedics at [facility] refused at this time and wants patient to lose weight before
Spoke with daughter in length 06/30 and she also thinks patient has been overly medicated due to her pain medications and this has been sent before by different physicians. I decreased her morphine dose this hospitalization.
Morbid Obesity due to excess calories / immobility
�- Affects all aspects of care.
�- This bed-bound 62y F will not be able to effect significant changes in diet or exercise to realize significant weight loss.
DVT Prophylaxis:� Lovenox
Code Status:� Full
Anticipated Discharge: 24 - 48 hours
Subjective/Interval History
-
Date of Service: July 05, 2023
pt afebrile
states chronic pain is major concern
Objective Data
-
Labs:
Laboratory Results
07/05/23
06:14
WBC 5.7
Hgb 7.5 L
Hct 24.4 L
Plt Count 302
Sodium 135
Potassium 4.6
Chloride 106
Carbon Dioxide 24
BUN 11
Creatinine 0.5 L
Glucose 95
Calcium 8.2 L
Total Bilirubin 0.4
AST 59 H
ALT 28
Alkaline Phosphatase 232 H
Vital Signs:
Vital Signs
Temp Pulse Resp BP Pulse Ox
98.1 F 75 16 94/65 95
07/05/23 11:35 07/05/23 15:31 07/05/23 15:31 07/05/23 15:31 07/05/23 15:31
I&O
07/04/23 07/05/23 07/06/23
06:59 06:59 06:59
Intake Total 960 / 960
Output Total 700 / 700 2575 / 2575
Balance -700 / -700 -1615 / -1615
Review of Systems
-
History Source: Patient
All other systems: Reviewed and negative
Physical Exam
-
General: Well Developed and No Apparent Distress
HEENT: Normocephalic, Atraumatic and Moist Mucous Membranes
Respiratory: Clear to Auscultation
Cardiac: Regular Rhythm and S1/S2; Negative Murmur, Rub or Gallop
GI: Soft, Nontender, Nondistended and Normal Bowel Sounds; Negative Organomegaly
Rectal: Deferred by Provider
Musculoskeletal: No Clubbing, No Cyanosis, Edema, Right Lower Extrem and Edema, Left Lower Extrem
Skin: Decubitus Ulcers (stage 3); Negative Rash
Neuro: Nonfocal/Grossly Intact
Data Reviewed
-
Labs: Labs Reviewed by
[2023-07-05 17:11] LABS: Glucose - Point of Care 120 mg/dl (70-99)
[2023-07-05] MEDS: LOVENOX 40 MG SC (17:33)
--- NOTE | 2023-07-05 20:36 | PTCARENOTE ---
Patient incontinent of a mod formed bm. She c/o burning at her wound site but refuses to turn off area to relieve pressure. Attempted to reposition with pillows to help support patient so that she was completely off area; patient began yelling that
she couldn't lay like that and continued to move herself until she was on her back again.
[2023-07-05] MEDS: LIPITOR 40 MG PO (21:35)
[2023-07-05 21:43] LABS: Glucose - Point of Care 110 mg/dl (70-99)
[2023-07-06] VITALS (7 sets, daily range): BP systolic 87–120; BP diastolic 50–68; BMI 41.7
[2023-07-06] MEDS: DILAUDID 0.5 MG IV ×6 (01:33→22:39)
[2023-07-06 06:08] LABS: % Basophils 0.8 % (0-2); % Eosinophils 1.4 % (0-6); % Lymphocytes 27.7 % (20.5-51.1); % Monocytes 6.8 % (1.7-9.3); % Neutrophils 59.3 % (42.2-75.2); Absolute Eosinophils 0.1 10^3/uL (0-0.7); Absolute Immature Granulocytes 0.2 10^3/uL (0-0.05); Absolute Lymphocytes 1.4 10^3/uL (1.2-3.4); Absolute Monocytes 0.3 10^3/uL (0.1-0.6); Hematocrit 26.5 % (37.0-47.0); Hemoglobin 7.9 g/dL (12.0-16.0); Mean Corp Hgb Conc. 29.8 g/dL (33.0-37.0); Mean Corpuscular Volume 97.4 fL (81.0-99.0); Mean Platelet Volume 9.5 fL (7.4-10.4); Nucleated Red Blood Cells % 0 %; Platelet Count 317 10^3/uL (130-400); Red Blood Cell Count 2.72 10^6/uL (4.20-5.40); Red Cell Dist. Width 16.3 % (11.5-14.5)
[2023-07-06 07:29] LABS: ALT (SGPT) 31 U/L (0-35); AST (SGOT) 67 U/L (14-36); Albumin 2.7 g/dl (3.5-5.0); Alkaline Phosphatase 228 U/L (38-126); Blood Urea Nitrogen 11 mg/dl (7-17); Calcium 7.8 mg/dl (8.4-10.2); Carbon Dioxide 22 mmol/L (22-30); Chloride 109 mmol/L (98-107); Estimated Creatinine Clearance > 125 ml/min; Glucose 99 mg/dl (70-99); Potassium 4.8 mmol/L (3.5-5.1); Sodium 135 mmol/L (135-145); Total Bilirubin 0.5 mg/dl (0.2-1.3); Total Protein 5.3 g/dl (6.3-8.2); eGFR > 60.00
[2023-07-06 08:03] LABS: Glucose - Point of Care 107 mg/dl (70-99)
[2023-07-06] MEDS: MS CONTIN (EXTENDED RELEASE) 15 MG PO ×2 (08:03→20:37)
[2023-07-06] MEDS: MUCINEX 1200 MG PO ×2 (08:03→20:37)
[2023-07-06] MEDS: ZOLOFT 100 MG PO (08:03)
[2023-07-06] MEDS: SENOKOT-S 1 TABLET PO ×2 (08:03→20:37)
[2023-07-06] MEDS: TYLENOL 1000 MG PO ×3 (08:04→22:37)
[2023-07-06] MEDS: DILANTIN 200 MG PO (08:04)
[2023-07-06] MEDS: NEURONTIN 900 MG PO ×3 (08:04→22:37)
[2023-07-06] MEDS: PROTONIX 40 MG PO (08:04)
[2023-07-06] MEDS: DECADRON 4 MG IV ×2 (08:05→20:38)
[2023-07-06] MEDS: ATROVENT NEBULES 0.5 MG INH ×3 (08:09→20:45)
[2023-07-06] MEDS: XOPENEX 1.25 MG INHALANT SOLUTION INH ×3 (08:09→20:45)
[2023-07-06] MEDS: NOVOLOG FLEXPEN-LOW RESISTANCE SC ×3 (08:14→18:26)
[2023-07-06] MEDS: FOLVITE 1 MG PO (09:46)
--- NOTE | 2023-07-06 10:55 | W.PN.CD ---
Today's Communication / Plan
-
-Will place on standing dose of Lasix 40 mg IV daily.
Impression / Plan
-
Assessment/Plan: 62 y/o female with emphysema/COPD, hx seizure on meds, anemia, remote hx PR per patient (no stents also per patient, details not clear), CHF (type and details unknown), chronic Mota, ambulatory dysfunction, obesity, cigarette use,
daily ETOH who presented from [place] for fever (106.1) and altered mental status, as well as sats 86%. She is being treated for possible sepsis related to PNA, CAUTI, and decub ulcer.
Suspected sepsis:
-improved, now off Levophed and severe fever improved
-on ABX and ID is following
-possible sources PNA, UTI, sacral decub wound
Cardiomyopathy EF 30-35% - with acute systolic HF
-patient reports history of CHF, details unknown, doesn't see cardiology as OP only in hospitals -> despite multiple calls we weren't able to get [facility] records. We do have [place] records that shows HF meds but no report of LVEF or valves.
-GDMT limited (BB/ACEI/ARB/ARNI/MRA) due to hypotension (required levophed) and suspected UTI (SGLT2)
-Will place on standing dose of Lasix 40 mg IV daily.
Moderate to severe MR - unknown chronicity
-diuresis as above
Abnormal troponin: non-ischemic myocardial injury in setting of acute illness
ETOH use:
-patient reports 1-2 vodka drinks daily
-recommend total cessation
Anemia:
-acute on chronic
-PRBC administered yesterday, Hgb 7.7 today
COPD:
-still with wheezing/rhonchi
-on O2
-still smokes 1-2 cigs per day, recommended total cessation
Indigestion: improved with Tums, Maalox, Protonix.
Subjective:
No major events overnight.
TTE:
Left ventricle is moderately dilated.Moderately reduced left ventricular systolic function.Global hypokinesis.Left ventricular ejection fraction is 30-35%
Moderate-severe mitral regurgitation.
Mild to moderate tricuspid regurgitation. Estimated pulmonary artery pressure of 39 mmHg is moderately elevated.
* Called [facility] and [facility], where she came from, for additional records.
[facility] [place] faxed over discharge summary from her recent [facility] hospitalization, limited info. placed on her chart.
-admitted with hyponatremia, UTI and infected sacral and LE wounds, noted to have hypotension.
-home meds Coreg, Amlodipine and Lasix were held at discharge.
-evaluated by plastic surgery and wound care for wound management.
Physical Exam
Vital Signs/Labs
Vital Signs
Temp Pulse Resp BP Pulse Ox
98.7 F 82 28 109/62 95
07/06/23 08:15 07/06/23 08:00 07/06/23 08:00 07/06/23 06:00 07/06/23 08:00
07/05/23 07/06/23 07/07/23
06:59 06:59 06:59
Actual Weight 131.9 kg 131.9 kg
07/06/23 05:46
07/06/23 05:46
PT 16.9 Sec (11.4-14.6) H 06/28/23 19:19
INR 1.34 06/28/23 19:19
APTT 36.2 Sec (23.4-35.0) H 06/28/23 19:19
Magnesium 1.4 mg/dl (1.6-2.3) L 06/29/23 03:52
Free T4 0.90 ng/dl (0.78-2.19) 06/30/23 11:43
06/29/23
03:52
[id number] Pept 7100
Physical Exam
Constitutional: No acute distress and Comfortable
EENT: Anicteric
Cardiovascular: Rhythm & rate is regular, Systolic murmur absent, Pedal edema present (2-3+) and S1S2 is normal
Respiratory: Respiratory effort normal and Wheeze Present
GI: Soft
Neuro/Psych: AO x 3
Other: Skin (Warm, dry)
Data Reviewed
-
Date of Service: July 06, 2023
EKG: Tracing Personally Visualized and interpreted (Telemetry: Sinus rhythm)
Echo: Report Reviewed by me (EF 30-35%)
Labs: Labs Reviewed by me
[2023-07-06 12:27] LABS: Glucose - Point of Care 128 mg/dl (70-99)
[2023-07-06] MEDS: LASIX 40 MG IV (12:42)
[2023-07-06] MEDS: ATIVAN 0.5 MG PO ×2 (12:51→20:45)
--- NOTE | 2023-07-06 15:19 | W.PN.HOSP.TC ---
Today's Communication/Plan
-
see plan
Assessment / Plan
Assessment / Plan
Suspected septic shock
�- Multiple potential sources including pulmonary (L base pneumonia), (CAUTI), Skin (sacral decub)
Suspect some toxic metabolic encephalopathy secondary to above
was on levophed; now off
�-completed 7 days of meropenem per ID. observe off abx.
Evaluated by neurology who does not think the fevers are from phenytoin
follow fever curve
�- Obtain records from [facility] to shed light on recent hospitalization, multiple calls but still waiting on records from [facility].
�-hip x-rays were ordered however patient refused
ammonia wnl; normal CK
LLL Pneumonia
Acute on Chronic Hypoxemic Respiratory Failure; on 3 L chronic o2
COPD with possible Acute Exacerbation
started standing and prn nebs; cw IV decadron, decreased further to 4 mg q12 hr
�- CXR with possible L base pneumonia and small effusion. + procal
�- IV abx completed per ID.
Suspect acute on chronic Anemia of Chronic Disease
some acute on chronic blood loss anemia from sacral decub
Hemoglobin 6.6 on 07/01, s/p 1 unit PRBC 07/01
�- Unknown baseline.� Follow-up recent records from [facility] for comparison.
acute systolic HF.
per patient unknown if hx of CHF; unknown EF
used to be on lasix but now stopped
Echo 06/29 with EF 30-35%; global hypokinesis; cardiology following
IV lasix given 07/02. periods of hypotension so monitor closely. additional dose 07/05 of IV lasix.
heart burn
maalox; PPI
Mild troponin elevation likely non-[place] related
Monitor
Chronic Indwelling Mota Catheter
CAUTI
�- UA consistent with infection.� IV abx as noted above.
�- Follow-up culture data.
�- Mota exchanged in the ED
Hyponatremia
Monitor
Hypomagnesemia
Monitor
Leukopenia
Monitor
Avascular Necrosis of the Right Hip
�- Unclear chronicity of this condition.� Patient complains of pain at present and surrounding induration / increased warmth in tissues overlying the hip.
�xrays were ordered however patient refused
per daughter; orthopedics at [facility] has refused surgery until patient loses weight.
Suspect severe anxiety
ativan prn
Abnormal LFTs
monitor
Seizure Disorder
�- Unknown history, most recent seizure, etc.
�- Continue phenytoin and follow for any breakthrough seizures.
Benign Hypertension
DM-II
�- Patient has both listed diagnoses, but on no medications for either.
�- Follow BP / glucose.
�- Cover with SSI as needed.� A1C 5.2
Stage 3 large PI to L buttock extending down to Ischium, small hermosillo eschar, R buttock with small stage 2 PI. R thigh with stage 3 PI
wound care
Chronic Pain Syndrome
Chronic Opioid Dependence
Chronic Bed-Bound Status
�- Continue usual BID morphine; decreased dose. increased gabapentin,started standing tylenol
�- Continue oxycodone PRN - but at decreased dosing.
�- PT / OT evaluations.
�-Suspected bedbound status secondary to avascular necrosis of right hip. per patient its her right hip that she needs surgery which orthopedics at [facility] refused at this time and wants patient to lose weight before
Spoke with daughter in length 06/30 and she also thinks patient has been overly medicated due to her pain medications and this has been sent before by different physicians. I decreased her morphine dose this hospitalization.
Morbid Obesity due to excess calories / immobility
�- Affects all aspects of care.
�- This bed-bound 62y F will not be able to effect significant changes in diet or exercise to realize significant weight loss.
DVT Prophylaxis:� Lovenox
Code Status:� Full
Anticipated Discharge: Within 24 hours
Subjective/Interval History
-
Date of Service: July 06, 2023
pt states she is doing ok but chronic pain ongoing
Objective Data
-
Labs:
Laboratory Results
07/06/23
05:46
WBC 5.0
Hgb 7.9 L
Hct 26.5 L
Plt Count 317
Sodium 135
Potassium 4.8
Chloride 109 H
Carbon Dioxide 22
BUN 11
Creatinine 0.5 L
Glucose 99
Calcium 7.8 L
Total Bilirubin 0.5
AST 67 H
ALT 31
Alkaline Phosphatase 228 H
Vital Signs:
Vital Signs
Temp Pulse Resp BP Pulse Ox
98.3 F 70 18 113/65 97
07/06/23 11:48 07/06/23 13:41 07/06/23 13:41 07/06/23 10:00 07/06/23 13:41
I&O
07/05/23 07/06/23 07/07/23
06:59 06:59 06:59
Intake Total 960 / 960 480 / 480
Output Total 2575 / 2575 2450 / 2450 550 / 550
Balance -1615 / -1615 -2450 / -2450 -70 / -70
Review of Systems
-
History Source: Patient
All other systems: Reviewed and negative
Physical Exam
-
General: Well Developed and No Apparent Distress
HEENT: Normocephalic, Atraumatic and Moist Mucous Membranes
Respiratory: Clear to Auscultation
Cardiac: Regular Rhythm and S1/S2; Negative Murmur, Rub or Gallop
GI: Soft, Nontender, Nondistended and Normal Bowel Sounds; Negative Organomegaly
Rectal: Deferred by Provider
Musculoskeletal: No Clubbing, No Cyanosis, Edema, Right Lower Extrem and Edema, Left Lower Extrem
Skin: Negative Rash
Neuro: Nonfocal/Grossly Intact
Psych: Calm
Data Reviewed
-
Labs: Labs Reviewed by me
[2023-07-06] MEDS: Pyridium 100 MG PO ×2 (16:36→22:38)
[2023-07-06] MEDS: LOVENOX 40 MG SC (16:37)
[2023-07-06 17:40] LABS: Glucose - Point of Care 111 mg/dl (70-99)
[2023-07-06 22:24] LABS: Glucose - Point of Care 116 mg/dl (70-99)
[2023-07-06] MEDS: LIPITOR 40 MG PO (22:37)
[2023-07-07] VITALS (7 sets, daily range): BP systolic 101–127; BP diastolic 54–73; BMI 40.7
--- NOTE | 2023-07-07 02:25 | PTCARENOTE ---
Pt being transferred to [facility] in room 430. Report called to receiving RN.
[2023-07-07] MEDS: DILAUDID 0.5 MG IV ×6 (02:43→22:36)
[2023-07-07] MEDS: ATIVAN 0.5 MG PO ×3 (02:44→20:35)
[2023-07-07 07:38] LABS: ALT (SGPT) 26 U/L (0-35); AST (SGOT) 51 U/L (14-36); Albumin 2.5 g/dl (3.5-5.0); Alkaline Phosphatase 201 U/L (38-126); Blood Urea Nitrogen 12 mg/dl (7-17); Calcium 7.4 mg/dl (8.4-10.2); Carbon Dioxide 25 mmol/L (22-30); Chloride 108 mmol/L (98-107); Estimated Creatinine Clearance > 125 ml/min; Glucose 80 mg/dl (70-99); Potassium 4.4 mmol/L (3.5-5.1); Sodium 134 mmol/L (135-145); Total Bilirubin 0.5 mg/dl (0.2-1.3); Total Protein 5.1 g/dl (6.3-8.2); eGFR > 60.00
[2023-07-07 07:58] LABS: Glucose - Point of Care 92 mg/dl (70-99)
[2023-07-07 08:10] LABS: % Basophils 0.4 % (0-2); % Eosinophils 1.7 % (0-6); % Immature Granulocytes 3.3 % (0-0.5); % Lymphocytes 27.5 % (20.5-51.1); % Monocytes 7.9 % (1.7-9.3); % Neutrophils 59.2 % (42.2-75.2); Absolute Eosinophils 0.1 10^3/uL (0-0.7); Absolute Immature Granulocytes 0.2 10^3/uL (0-0.05); Absolute Lymphocytes 1.4 10^3/uL (1.2-3.4); Absolute Monocytes 0.4 10^3/uL (0.1-0.6); Absolute Neutrophils 3.1 10^3/uL (1.4-6.5); Hematocrit 24.2 % (37.0-47.0); Hemoglobin 7.5 g/dL (12.0-16.0); Mean Corpuscular Hgb 30.4 pg (27.0-31.0); Mean Platelet Volume 9.7 fL (7.4-10.4); Nucleated Red Blood Cells % 0 %; Platelet Count 327 10^3/uL (130-400); Red Blood Cell Count 2.47 10^6/uL (4.20-5.40); Red Cell Dist. Width 16.5 % (11.5-14.5); White Blood Cell Count 5.2 10^3/uL (4.8-10.8)
[2023-07-07] MEDS: ATROVENT NEBULES 0.5 MG INH ×3 (08:19→19:46)
[2023-07-07] MEDS: XOPENEX 1.25 MG INHALANT SOLUTION INH ×3 (08:20→19:46)
[2023-07-07] MEDS: NOVOLOG FLEXPEN-LOW RESISTANCE SC ×3 (08:40→16:57)
--- NOTE | 2023-07-07 09:09 | W.PN.CD ---
Today's Communication / Plan
-
- continue diuresis as BP allows and then add GDMT
Impression / Plan
-
Assessment/Plan: 62 y/o female with emphysema/COPD, hx seizure on meds, anemia, remote hx MD per patient (no stents also per patient, details not clear), CHF (type and details unknown), chronic Mota, ambulatory dysfunction, obesity, cigarette use,
daily ETOH who presented from [place] for fever (106.1) and altered mental status, as well as sats 86%. She is being treated for possible sepsis related to PNA, CAUTI, and decub ulcer.
Suspected sepsis: improved/resolved
Cardiomyopathy EF 30-35% - with acute systolic HF
-patient reports history of CHF, details unknown, doesn't see cardiology as OP but only in hospitals -> despite multiple calls we weren't able to get [place] [facility] records. We do have [place] records that shows HF meds but no report of LVEF or valves.
-GDMT limited (BB/ACEI/ARB/ARNI/MRA) due to hypotension (required Levophed) and suspected UTI (SGLT2)
-Standing dose of Lasix 40 mg IV daily started Jul 06
Moderate to severe MR - unknown chronicity
- diuresis as above
- recheck when dry
Abnormal troponin: non-ischemic myocardial injury in setting of acute illness
ETOH use:
-patient reports 1-2 vodka drinks daily
-recommend total cessation
Anemia: Hb 7.5
COPD:
-still with wheezing/rhonchi
-on O2
-still smokes 1-2 cigs per day, recommended total cessation
Indigestion: improved with Tums, Maalox, Protonix.
Dispo
- She was more lucid/talkative today. She denies heart issues but admits to recurrent syncope 'from COPD' (?). She was discharged from another hospital (unknown) and had home health, [facility], etc at home. Her benefits ran out and the aides
stopped coming. She sat in a chair for six days without ever getting out -> [facility] [facility] admit with bedsores and infection. Then NH. Then here
- I suspect she will need NH placement permanently
Subjective:
No CP, palps. She has mild dyspnea and pain from her ankle edema
TTE:
Left ventricle is moderately dilated.Moderately reduced left ventricular systolic function.Global hypokinesis.Left ventricular ejection fraction is 30-35%
Moderate-severe mitral regurgitation.
Mild to moderate tricuspid regurgitation. Estimated pulmonary artery pressure of 39 mmHg is moderately elevated.
Laboratory Data
07/03/23 07/07/23
04:55 05:45
Hgb 7.8 L 7.5 L
Creatinine 0.5 L 0.5 L
Selected Entries
06/28/23
20:09 06/28/23
20:10 07/03/23
03:15
Actual Weight 285 lb 4.45 oz 285 lb 4.45 oz 287 lb 0.67 oz
07/07/23
06:00
Actual Weight 283 lb 8 oz
Generic Name Dose Route Start Last Admin
Trade Name Freq PRN Reason Stop Dose Admin
Atorvastatin Calcium 40 mg 06/29/23 01:16
Atorvastatin (Lipitor) 40 Mg Tablet PO 07/27/23 01:15
HS STEFFEN
Atorvastatin Calcium 40 mg 06/29/23 01:16
Atorvastatin (Lipitor) 40 Mg Tablet PO 07/27/23 01:15
HS STEFFEN
Furosemide 40 mg 07/06/23 11:00
Furosemide 40 Mg (10 Mg/Ml) 4 Ml Vial IV 08/03/23 10:59
DAILY STEFFEN
Physical Exam
Vital Signs/Labs
Vital Signs
Temp Pulse Resp BP Pulse Ox
36.9 C 74 18 113/63 97
07/07/23 07:00 07/07/23 08:24 07/07/23 08:24 07/07/23 07:00 07/07/23 08:24
07/06/23 07/07/23 07/08/23
06:59 06:59 06:59
Actual Weight 290 lb 12.635 oz 283 lb 8 oz
07/07/23 05:45
07/07/23 05:45
PT 16.9 Sec (11.4-14.6) H 06/28/23 19:19
INR 1.34 06/28/23 19:19
APTT 36.2 Sec (23.4-35.0) H 06/28/23 19:19
Magnesium 1.4 mg/dl (1.6-2.3) L 06/29/23 03:52
Free T4 0.90 ng/dl (0.78-2.19) 06/30/23 11:43
06/29/23
03:52
[id number] Pept 7100
Physical Exam
Constitutional: No acute distress
EENT: Anicteric and Moist mucous membranes
Cardiovascular: Rhythm & rate is regular, Diastolic murmur absent, Pedal edema present and Systolic murmur present
Respiratory: Respiratory effort normal and Rhonchi Present
GI: Soft, Distention absent, Non tender and Normal bowel sounds
Neuro/Psych: Alert
Data Reviewed
-
Date of Service: July 07, 2023
[2023-07-07] MEDS: DILANTIN 200 MG PO (09:13)
[2023-07-07] MEDS: Pyridium 100 MG PO ×2 (09:13→17:06)
[2023-07-07] MEDS: MS CONTIN (EXTENDED RELEASE) 15 MG PO ×2 (09:14→20:35)
[2023-07-07] MEDS: FOLVITE 1 MG PO (09:14)
[2023-07-07] MEDS: TYLENOL 1000 MG PO ×3 (09:14→22:34)
[2023-07-07] MEDS: PROTONIX 40 MG PO (09:14)
[2023-07-07] MEDS: ZOLOFT 100 MG PO ×2 (09:14)
[2023-07-07] MEDS: NEURONTIN 900 MG PO ×3 (09:14→22:34)
[2023-07-07] MEDS: LASIX 40 MG IV (09:15)
[2023-07-07] MEDS: SENOKOT-S 1 TABLET PO (09:15)
[2023-07-07] MEDS: DECADRON 4 MG IV ×2 (09:15→20:35)
[2023-07-07] MEDS: MUCINEX 1200 MG PO ×2 (09:26→20:36)
[2023-07-07] MEDS: ROXICODONE 10 MG PO (09:56)
--- NOTE | 2023-07-07 11:06 | WOUNDNOTE ---
L BUTTOCK EXTENDING TO ISCHIUM
--- NOTE | 2023-07-07 11:10 | WOUNDNOTE ---
WON RN NOTE: Followed up today with assist from nurse Sima. Patient itching R buttock and hip causing self to bleed. R upper buttock small wound healing, silicone foam changed. Nurse and myself instructed patient not to itch, still continues to do
it, clear moisture barrier applied. May need topical steroid cream if barrier ointment not enough. All other wounds improving, L buttock-Ischium more defined. L ischium area deeper at 2cm, no muscle or bone exposed, some yellow slough visible. Will
order Santyl to start tomorrow to slough areas followed by adaptic, abd pad and medipore tape. Skin prep applied to periwound and heels. Adhesive foams applied to heels to protect, both blanchable pink. Patient is on [facility] air bed,
repositioned with pillows placed on either hip and under calves. Encouraged protein in diet, states she is trying. Pressure ulcer prevention measures reviewed with patient, turning remains difficult as she cries out in pain and can't lift legs
enough to turn. Using oxygen via silicone NC, ear rims are intact, has itchy area on L ear lobe, not pressure related. Will confirm Santyl with hospitalist, update wound care orders and discharge instructions. CM to make sure patient has air
mattress at [place], patient thinks she does. Will follow as needed.
--- NOTE | 2023-07-07 11:58 | CM ---
manager graphic reviewed patient's chart and will reach out to admissions at [facility] to see if patient was participating with physial therapy prior to admission.
Plan; To follow up with admissions at [facility].
[2023-07-07 12:02] LABS: Glucose - Point of Care 115 mg/dl (70-99)
--- NOTE | 2023-07-07 12:04 | W.PN.HOSP.TC ---
Today's Communication/Plan
-
Monitor vital signs and see plan
Continue with IV diuresis
Monitor sodium
PT/OT
Assessment / Plan
Assessment / Plan
Suspected septic shock
�- Multiple potential sources including pulmonary (L base pneumonia), (CAUTI), Skin (sacral decub)
Suspect some toxic metabolic encephalopathy secondary to above
was on levophed; now off
�-completed 7 days of meropenem per ID. observe off abx.
Evaluated by neurology who does not think the fevers are from phenytoin
follow fever curve
�- Obtain records from [facility] to shed light on recent hospitalization, multiple calls but still waiting on records from [facility].
�-hip x-rays were ordered however patient refused
ammonia wnl; normal CK
LLL Pneumonia
Acute on Chronic Hypoxemic Respiratory Failure; on 3 L chronic o2
COPD with possible Acute Exacerbation
started standing and prn nebs; cw IV decadron, decreased further to 4 mg q12 hr
�- CXR with possible L base pneumonia and small effusion. + procal
�- IV abx completed per ID.
Suspect acute on chronic Anemia of Chronic Disease
some acute on chronic blood loss anemia from sacral decub
Hemoglobin 6.6 on 07/01, s/p 1 unit PRBC 07/01
�- Unknown baseline.� Follow-up recent records from [facility] for comparison.
acute systolic HF.
per patient unknown if hx of CHF; unknown EF
used to be on lasix but now stopped
Echo 06/29 with EF 30-35%; global hypokinesis; cardiology following
IV lasix given 07/02. periods of hypotension so monitor closely. additional dose 07/05 of IV lasix.
cw IV lasix
heart burn
maalox; PPI
Mild troponin elevation likely non-[place] related
Monitor
Chronic Indwelling Mota Catheter
CAUTI
�- UA consistent with infection.� IV abx as noted above.
�- Follow-up culture data.
�- Mota exchanged in the ED
Hyponatremia
Monitor
Hypomagnesemia
Monitor
Leukopenia
Monitor
Avascular Necrosis of the Right Hip
�- Unclear chronicity of this condition.� Patient complains of pain at present and surrounding induration / increased warmth in tissues overlying the hip.
�xrays were ordered however patient refused
per daughter; orthopedics at [facility] has refused surgery until patient loses weight.
Suspect severe anxiety
ativan prn
Abnormal LFTs
monitor
Seizure Disorder
�- Unknown history, most recent seizure, etc.
�- Continue phenytoin and follow for any breakthrough seizures.
Benign Hypertension
DM-II
�- Patient has both listed diagnoses, but on no medications for either.
�- Follow BP / glucose.
�- Cover with SSI as needed.� A1C 5.2
Stage 3 large PI to L buttock extending down to Ischium, small hermosillo eschar, R buttock with small stage 2 PI. R thigh with stage 3 PI
wound care
Chronic Pain Syndrome
Chronic Opioid Dependence
Chronic Bed-Bound Status
�- Continue usual BID morphine; decreased dose. increased gabapentin,started standing tylenol
�- Continue oxycodone PRN - but at decreased dosing.
�- PT / OT evaluations.
�-Suspected bedbound status secondary to avascular necrosis of right hip. per patient its her right hip that she needs surgery which orthopedics at [facility] refused at this time and wants patient to lose weight before
Spoke with daughter in length 06/30 and she also thinks patient has been overly medicated due to her pain medications and this has been sent before by different physicians. I decreased her morphine dose this hospitalization.
Morbid Obesity due to excess calories / immobility
�- Affects all aspects of care.
�- This bed-bound 62y F will not be able to effect significant changes in diet or exercise to realize significant weight loss.
DVT Prophylaxis:� Lovenox
Code Status:� Full
General: no acute distress
HEENT: dry MM
Respiratory: Other (Decreased at bases - otherwise clear.)
Cardiac: S1/S2 and Regular Rhythm; No Murmur
GI: Other (Morbidly obese.� Mild lower abdominal tenderness.� No rebound / guarding.� Pos BS.)
Musculoskeletal: No Clubbing, No Cyanosis and Other (Induration and increased warmth over the R greater trochanter / hip region.� Pos tenderness.� No appreciable fluctuance.)
Skin: Other (Stage III sacral decub wth some surrounding induration / erythema.)
Neuro: Awake and Alert; No Oriented
Psych: Confused
Anticipated Discharge: 24 - 48 hours
Subjective/Interval History
-
Date of Service: July 07, 2023
Has some pain
Objective Data
-
Labs:
Laboratory Results
07/07/23
05:45
WBC 5.2
Hgb 7.5 L
Hct 24.2 L
Plt Count 327
Sodium 134 L
Potassium 4.4
Chloride 108 H
Carbon Dioxide 25
BUN 12
Creatinine 0.5 L
Glucose 80
Calcium 7.4 L
Total Bilirubin 0.5
AST 51 H
ALT 26
Alkaline Phosphatase 201 H
Vital Signs:
Vital Signs
Temp Pulse Resp BP Pulse Ox
98.4 F 74 18 113/63 97
07/07/23 07:00 07/07/23 08:24 07/07/23 08:24 07/07/23 07:00 07/07/23 08:24
I&O
07/06/23 07/07/23 07/08/23
06:59 06:59 06:59
Intake Total 960 / 960
Output Total 2450 / 2450 2450 / 2850 400 / 400
Balance -2450 / -2450 -1490 / -1890 -400 / -400
[2023-07-07] MEDS: BENADRYL 25 MG PO (13:09)
[2023-07-07] MEDS: TYLENOL 500 MG PO (13:09)
[2023-07-07 16:55] LABS: Glucose - Point of Care 104 mg/dl (70-99)
[2023-07-07] MEDS: LOVENOX 40 MG SC (17:16)
[2023-07-07] MEDS: SENOKOT-S PO (20:36)
[2023-07-07 22:28] LABS: Glucose - Point of Care 130 mg/dl (70-99)
[2023-07-07] MEDS: LIPITOR 40 MG PO (22:35)
[2023-07-08] MEDS: DILAUDID 0.5 MG IV ×6 (02:45→23:02)
[2023-07-08 03:33] VITALS: BP 112/65
[2023-07-08 06:00] VITALS: BMI 41.3
[2023-07-08 07:00] VITALS: BP 116/63
[2023-07-08] MEDS: ATROVENT NEBULES 0.5 MG INH ×3 (08:03→20:39)
[2023-07-08] MEDS: XOPENEX 1.25 MG INHALANT SOLUTION INH ×3 (08:03→20:39)
[2023-07-08 08:10] LABS: % Eosinophils 1.8 % (0-6); % Immature Granulocytes 2.2 % (0-0.5); % Lymphocytes 26.9 % (20.5-51.1); % Monocytes 8.1 % (1.7-9.3); Absolute Basophils 0.1 10^3/uL (0-0.2); Absolute Eosinophils 0.1 10^3/uL (0-0.7); Absolute Immature Granulocytes 0.1 10^3/uL (0-0.05); Absolute Lymphocytes 1.4 10^3/uL (1.2-3.4); Absolute Monocytes 0.4 10^3/uL (0.1-0.6); Absolute Neutrophils 3.1 10^3/uL (1.4-6.5); Hematocrit 26.2 % (37.0-47.0); Hemoglobin 8.5 g/dL (12.0-16.0); Mean Corp Hgb Conc. 32.4 g/dL (33.0-37.0); Mean Corpuscular Volume 92.6 fL (81.0-99.0); Mean Platelet Volume 10.5 fL (7.4-10.4); Nucleated Red Blood Cells % 0.4 %; Platelet Count 320 10^3/uL (130-400); Red Blood Cell Count 2.83 10^6/uL (4.20-5.40); Red Cell Dist. Width 17.2 % (11.5-14.5); White Blood Cell Count 5.1 10^3/uL (4.8-10.8)
[2023-07-08 08:12] LABS: ALT (SGPT) 29 U/L (0-35); AST (SGOT) 56 U/L (14-36); Albumin 2.7 g/dl (3.5-5.0); Alkaline Phosphatase 210 U/L (38-126); Blood Urea Nitrogen 12 mg/dl (7-17); Calcium 7.2 mg/dl (8.4-10.2); Carbon Dioxide 23 mmol/L (22-30); Chloride 109 mmol/L (98-107); Estimated Creatinine Clearance > 125 ml/min; Glucose 72 mg/dl (70-99); Potassium 4.3 mmol/L (3.5-5.1); Sodium 136 mmol/L (135-145); Total Bilirubin 0.6 mg/dl (0.2-1.3); Total Protein 5.5 g/dl (6.3-8.2); eGFR > 60.00
[2023-07-08] MEDS: TYLENOL 1000 MG PO ×3 (09:09→21:08)
[2023-07-08] MEDS: NEURONTIN 900 MG PO ×3 (09:09→21:07)
[2023-07-08] MEDS: DILANTIN 200 MG PO (09:09)
[2023-07-08] MEDS: PROTONIX 40 MG PO (09:09)
[2023-07-08] MEDS: MUCINEX 1200 MG PO ×2 (09:09→20:10)
[2023-07-08] MEDS: LASIX 40 MG IV ×2 (09:10→15:03)
[2023-07-08] MEDS: DECADRON 4 MG IV ×2 (09:10→20:10)
[2023-07-08] MEDS: FOLVITE 1 MG PO (09:10)
[2023-07-08] MEDS: SANTYL OINTMENT 1 APPLIC TOPICAL (09:11)
[2023-07-08] MEDS: MS CONTIN (EXTENDED RELEASE) 15 MG PO ×2 (09:11→20:10)
[2023-07-08] MEDS: SENOKOT-S PO ×2 (09:11→20:11)
--- NOTE | 2023-07-08 09:16 | CM ---
title manager reviewed patient's chart and spoke with admissions at [facility] and patient's daughter, Patty and plan is for patient to return to [facility] when stable, per admissions patient has only been at [facility] a few days and plan
will be to have patient approved through physical therapy, wound care and medical management to return to [facility]. Patient will require Auth from insurance for skilled placement.
Plan; Camille to return to [facility] when stable, needs Auth.
[2023-07-08 09:30] LABS: Glucose - Point of Care 102 mg/dl (70-99)
[2023-07-08] MEDS: NOVOLOG FLEXPEN-LOW RESISTANCE SC ×3 (09:30→17:35)
--- NOTE | 2023-07-08 09:54 | W.PN.CD ---
Today's Communication / Plan
-
- IV diuresis bid today
Impression / Plan
-
Assessment/Plan: 62 y/o female with emphysema/COPD, hx seizure on meds, anemia, remote hx [place] per patient (no stents also per patient, details not clear), CHF (type and details unknown), chronic Mota, ambulatory dysfunction, obesity, cigarette use,
daily ETOH who presented from [facility] for fever (106.1) and altered mental status, as well as sats 86%. She is being treated for possible sepsis (improving/resolved) related to PNA, CAUTI, and decub ulcer .
Suspected sepsis: improved/resolved
Cardiomyopathy EF 30-35% - with acute systolic HF
-patient reports history of CHF, details unknown, doesn't see cardiology as OP but only in hospitals -> despite multiple calls we weren't able to get [facility] records. We do have [facility] records that shows HF meds but no report of LVEF or valves.
-GDMT limited (BB/ACEI/ARB/ARNI/MRA) due to hypotension (required Levophed) and suspected UTI (SGLT2)
-Standing dose of Lasix 40 mg IV daily started Jul 06, will try and give extra dose today 07/08 in PM
Moderate to severe MR - unknown chronicity
- diuresis as above
- recheck when dry
Abnormal troponin: non-ischemic myocardial injury in setting of acute illness
ETOH use:
-patient reports 1-2 vodka drinks daily
-recommend total cessation
Anemia: Hb 7.5
COPD:
-still with wheezing/rhonchi
-on O2
-still smokes 1-2 cigs per day, recommended total cessation
Indigestion: improved with Tums, Maalox, Protonix.
Dispo
- She denies heart issues but admits to recurrent syncope 'from COPD' (?). She was discharged from another hospital (unknown) and had home health, [facility], etc at home. Her benefits ran out and the aides stopped coming. She sat in a chair for
six days without ever getting out -> [facility] admit with bedsores and infection. Then NH. Then here
- I suspect she will need NH placement permanently, 07/08 says that she [place] and [place] move there
Subjective:
No CP, palps. She has mild dyspnea and pain from her ankle edema
TTE:
Left ventricle is moderately dilated.Moderately reduced left ventricular systolic function.Global hypokinesis.Left ventricular ejection fraction is 30-35%
Moderate-severe mitral regurgitation.
Mild to moderate tricuspid regurgitation. Estimated pulmonary artery pressure of 39 mmHg is moderately elevated.
Laboratory Data
07/03/23 07/07/23
04:55 05:45
Hgb 7.8 L 7.5 L
Creatinine 0.5 L 0.5 L
Selected Entries
06/28/23
20:09 06/28/23
20:10 07/03/23
03:15
Actual Weight 285 lb 4.45 oz 285 lb 4.45 oz 287 lb 0.67 oz
07/07/23
06:00
Actual Weight 283 lb 8 oz
Generic Name Dose Route Start Last Admin
Trade Name Freq PRN Reason Stop Dose Admin
Atorvastatin Calcium 40 mg 06/29/23 01:16
Atorvastatin (Lipitor) 40 Mg Tablet PO 07/27/23 01:15
HS STEFFEN
Atorvastatin Calcium 40 mg 06/29/23 01:16
Atorvastatin (Lipitor) 40 Mg Tablet PO 07/27/23 01:15
HS STEFFEN
Furosemide 40 mg 07/06/23 11:00
Furosemide 40 Mg (10 Mg/Ml) 4 Ml Vial IV 08/03/23 10:59
DAILY STEFFEN
Physical Exam
Vital Signs/Labs
Vital Signs
Temp Pulse Resp BP Pulse Ox
98.1 F 68 18 116/63 96
07/08/23 07:00 07/08/23 08:06 07/08/23 08:06 07/08/23 07:00 07/08/23 08:06
07/07/23 07/08/23 07/09/23
06:59 06:59 06:59
Actual Weight 283 lb 8 oz 288 lb 2 oz
07/08/23 06:49
07/08/23 06:49
PT 16.9 Sec (11.4-14.6) H 06/28/23 19:19
INR 1.34 06/28/23 19:19
APTT 36.2 Sec (23.4-35.0) H 06/28/23 19:19
Magnesium 1.4 mg/dl (1.6-2.3) L 06/29/23 03:52
Free T4 0.90 ng/dl (0.78-2.19) 06/30/23 11:43
06/29/23
03:52
Fwt-[id number] Pept 7100
Physical Exam
Constitutional: No acute distress
EENT: Moist mucous membranes
Cardiovascular: Rhythm & rate is regular and Pedal edema present
Respiratory: Respiratory effort normal and Lungs clear to auscul.
GI: Soft
Neuro/Psych: AO x 3
Data Reviewed
-
Date of Service: July 08, 2023
EKG: Tracing Personally Visualized and interpreted
Medical Tests (PFT, Pathology etc): Report Reviewed by me
Labs: Labs Reviewed by me
[2023-07-08] MEDS: ATIVAN 0.5 MG PO ×2 (10:03→21:07)
--- NOTE | 2023-07-08 10:05 | W.PN.HOSP.TC ---
Today's Communication/Plan
-
monitor vitals
see plan
IV lasix
pt/ot
Assessment / Plan
Assessment / Plan
Suspected septic shock
�- Multiple potential sources including pulmonary (L base pneumonia), (CAUTI), Skin (sacral decub)
Suspect some toxic metabolic encephalopathy secondary to above
was on levophed; now off
�-completed 7 days of meropenem per ID. observe off abx.
Evaluated by neurology who does not think the fevers are from phenytoin
follow fever curve
�- Obtain records from [facility] to shed light on recent hospitalization, multiple calls but still waiting on records from [facility]. per [facility] records,not much helpful
�-hip x-rays were ordered however patient refused
ammonia wnl; normal CK
LLL Pneumonia
Acute on Chronic Hypoxemic Respiratory Failure; on 3 L chronic o2
COPD with possible Acute Exacerbation
started standing and prn nebs; cw IV decadron, decreased further to 4 mg q12 hr
�- CXR with possible L base pneumonia and small effusion. + procal
�- IV abx completed per ID.
Suspect acute on chronic Anemia of Chronic Disease
some acute on chronic blood loss anemia from sacral decub
Hemoglobin 6.6 on 07/01, s/p 1 unit PRBC 07/01
�- Unknown baseline.� Follow-up recent records from [facility] for comparison.
acute systolic HF.
per patient unknown if hx of CHF; unknown EF
used to be on lasix but now stopped
Echo 06/29 with EF 30-35%; global hypokinesis; cardiology following
IV lasix given 07/02. periods of hypotension so monitor closely. additional dose 07/05 of IV lasix.
cw IV lasix
heart burn
maalox; PPI
Mild troponin elevation likely non-[place] related
Monitor
Chronic Indwelling Mota Catheter
CAUTI
�- UA consistent with infection.� IV abx as noted above.
�- Follow-up culture data.
�- Mota exchanged in the ED
Hyponatremia
Monitor
Hypomagnesemia
Monitor
Leukopenia
Monitor
Avascular Necrosis of the Right Hip
�- Unclear chronicity of this condition.� Patient complains of pain at present and surrounding induration / increased warmth in tissues overlying the hip.
�xrays were ordered however patient refused
per daughter; orthopedics at [facility] has refused surgery until patient loses weight.
Suspect severe anxiety
ativan prn
Abnormal LFTs
monitor
Seizure Disorder
�- Unknown history, most recent seizure, etc.
�- Continue phenytoin and follow for any breakthrough seizures.
Benign Hypertension
DM-II
�- Patient has both listed diagnoses, but on no medications for either.
�- Follow BP / glucose.
�- Cover with SSI as needed.� A1C 5.2
Stage 3 large PI to L buttock extending down to Ischium, small hermosillo eschar, R buttock with small stage 2 PI. R thigh with stage 3 PI
wound care
Chronic Pain Syndrome
Chronic Opioid Dependence
Chronic Bed-Bound Status
�- Continue usual BID morphine; decreased dose. increased gabapentin,started standing tylenol
�- Continue oxycodone PRN - but at decreased dosing.
�- PT / OT evaluations.
�-Suspected bedbound status secondary to avascular necrosis of right hip. per patient its her right hip that she needs surgery which orthopedics at [facility] refused at this time and wants patient to lose weight before
Spoke with daughter in length 06/30 and she also thinks patient has been overly medicated due to her pain medications and this has been sent before by different physicians. I decreased her morphine dose this hospitalization.
Morbid Obesity due to excess calories / immobility
�- Affects all aspects of care.
�- This bed-bound 62y F will not be able to effect significant changes in diet or exercise to realize significant weight loss.
DVT Prophylaxis:� Lovenox
Code Status:� Full
General: no acute distress
HEENT: dry MM
Respiratory: Other (Decreased at bases - otherwise clear.)
Cardiac: S1/S2 and Regular Rhythm; No Murmur
GI: Other (Morbidly obese.� Mild lower abdominal tenderness.� No rebound / guarding.� Pos BS.)
Musculoskeletal: No Clubbing, No Cyanosis and Other (Induration and increased warmth over the R greater trochanter / hip region.� Pos tenderness.� No appreciable fluctuance.)
Skin: Other (Stage III sacral decub wth some surrounding induration / erythema.)
Neuro: Awake and Alert; No Oriented
Psych: Confused
Anticipated Discharge: 24 - 48 hours
Subjective/Interval History
-
Date of Service: July 08, 2023
has pain
Objective Data
-
Labs:
Laboratory Results
07/08/23
06:49
WBC 5.1
Hgb 8.5 L
Hct 26.2 L
Plt Count 320
Sodium 136
Potassium 4.3
Chloride 109 H
Carbon Dioxide 23
BUN 12
Creatinine 0.5 L
Glucose 72
Calcium 7.2 L
Total Bilirubin 0.6
AST 56 H
ALT 29
Alkaline Phosphatase 210 H
Vital Signs:
Vital Signs
Temp Pulse Resp BP Pulse Ox
98.1 F 68 18 116/63 96
07/08/23 07:00 07/08/23 08:06 07/08/23 08:06 07/08/23 07:00 07/08/23 08:06
I&O
07/07/23 07/08/23 07/09/23
06:59 06:59 06:59
Intake Total 960 / 960 1320 / 1320
Output Total 2450 / 2850 4500 / 4500
Balance -1490 / -1890 -3180 / -3180
[2023-07-08 11:00] VITALS: BP 116/67
[2023-07-08 12:24] LABS: Glucose - Point of Care 134 mg/dl (70-99)
[2023-07-08 15:00] VITALS: BP 115/68
[2023-07-08 17:32] LABS: Glucose - Point of Care 97 mg/dl (70-99)
[2023-07-08] MEDS: LOVENOX 40 MG SC (18:08)
--- NOTE | 2023-07-08 18:59 | PTCARENOTE ---
[facility] dressings changed x2 for day shift d/t orders and soiling
[2023-07-08 19:30] VITALS: BP 105/59
[2023-07-08] MEDS: LIPITOR 40 MG PO (21:08)
[2023-07-08 21:09] LABS: Glucose - Point of Care 109 mg/dl (70-99)
[2023-07-08 23:32] VITALS: BP 110/58
[2023-07-09] MEDS: ROXICODONE 10 MG PO ×2 (01:13→19:12)
[2023-07-09 02:51] VITALS: BP 117/69
[2023-07-09] MEDS: DILAUDID 0.5 MG IV ×6 (02:58→23:57)
[2023-07-09 06:00] VITALS: BMI 41.1
[2023-07-09] MEDS: ATROVENT NEBULES 0.5 MG INH ×3 (07:25→20:30)
[2023-07-09] MEDS: XOPENEX 1.25 MG INHALANT SOLUTION INH ×3 (07:26→20:31)
[2023-07-09 07:45] LABS: Glucose - Point of Care 95 mg/dl (70-99)
[2023-07-09] MEDS: NOVOLOG FLEXPEN-LOW RESISTANCE SC ×3 (07:45→17:06)
[2023-07-09 07:50] VITALS: BP 107/64
[2023-07-09] MEDS: SENOKOT-S PO ×2 (08:16→19:57)
[2023-07-09] MEDS: MS CONTIN (EXTENDED RELEASE) 15 MG PO ×2 (08:17→19:54)
[2023-07-09] MEDS: DILANTIN 200 MG PO (08:17)
[2023-07-09] MEDS: MUCINEX 1200 MG PO ×2 (08:17→19:54)
[2023-07-09] MEDS: TYLENOL 1000 MG PO ×3 (08:17→21:00)
[2023-07-09] MEDS: NEURONTIN 900 MG PO ×3 (08:17→21:00)
[2023-07-09] MEDS: ZOLOFT 100 MG PO (08:17)
[2023-07-09] MEDS: PROTONIX 40 MG PO (08:17)
[2023-07-09] MEDS: DECADRON 4 MG IV (08:17)
[2023-07-09] MEDS: FOLVITE 1 MG PO (08:18)
[2023-07-09] MEDS: SANTYL OINTMENT 1 APPLIC TOPICAL (08:18)
[2023-07-09] MEDS: LASIX 40 MG IV ×2 (08:26→19:54)
--- NOTE | 2023-07-09 08:36 | W.PN.CD ---
Today's Communication / Plan
-
- IV diuretics bid
- coreg 3.125 mg bid
Impression / Plan
-
Assessment/Plan: 62 y/o female with emphysema/COPD, hx seizure on meds, anemia, remote hx [place] per patient (no stents also per patient, details not clear), CHF (type and details unknown), chronic Mota, ambulatory dysfunction, obesity, cigarette use,
daily ETOH who presented from [place] for fever (106.1) and altered mental status, as well as sats 86%. She is being treated for possible sepsis (improving/resolved) related to PNA, CAUTI, and decub ulcer .
Suspected sepsis: improved/resolved
Cardiomyopathy EF 30-35% - with acute systolic HF
-patient reports history of CHF, details unknown, doesn't see cardiology as OP but only in hospitals -> despite multiple calls we weren't able to get [facility] records. We do have [facility] records that shows HF meds but no report of LVEF or valves.
-GDMT limited (BB/ACEI/ARB/ARNI/MRA) due to hypotension (required Levophed) and suspected UTI (SGLT2)
-Increase diuretics to lasix BID
- adding coreg 3.125, believe she was on 6.25 bid prior
Moderate to severe MR - unknown chronicity
- diuresis as above
- recheck when dry
Abnormal troponin: non-ischemic myocardial injury in setting of acute illness
ETOH use:
-patient reports 1-2 vodka drinks daily
-recommend total cessation
Anemia: Hb 7.5
COPD:
-resolving
-on O2
-still smokes 1-2 cigs per day, recommended total cessation
Indigestion: improved with Tums, Maalox, Protonix.
Dispo
- She denies heart issues but admits to recurrent syncope 'from COPD' (?). She was discharged from another hospital (unknown) and had home health, [facility], etc at home. Her benefits ran out and the aides stopped coming. She sat in a chair for
six days without ever getting out -> [facility] admit with bedsores and infection. Then NH. Then here
- I suspect she will need NH placement permanently, 07/08 says that she [place] and [place] like to move there
Subjective:
Feeling better
TTE:
Left ventricle is moderately dilated.Moderately reduced left ventricular systolic function.Global hypokinesis.Left ventricular ejection fraction is 30-35%
Moderate-severe mitral regurgitation.
Mild to moderate tricuspid regurgitation. Estimated pulmonary artery pressure of 39 mmHg is moderately elevated.
Laboratory Data
07/03/23 07/07/23
04:55 05:45
Hgb 7.8 L 7.5 L
Creatinine 0.5 L 0.5 L
Selected Entries
06/28/23
20:09 06/28/23
20:10 07/03/23
03:15
Actual Weight 285 lb 4.45 oz 285 lb 4.45 oz 287 lb 0.67 oz
07/07/23
06:00
Actual Weight 283 lb 8 oz
Generic Name Dose Route Start Last Admin
Trade Name Freq PRN Reason Stop Dose Admin
Atorvastatin Calcium 40 mg 06/29/23 01:16
Atorvastatin (Lipitor) 40 Mg Tablet PO 07/27/23 01:15
HS STEFFEN
Atorvastatin Calcium 40 mg 06/29/23 01:16
Atorvastatin (Lipitor) 40 Mg Tablet PO 07/27/23 01:15
HS STEFFEN
Furosemide 40 mg 07/06/23 11:00
Furosemide 40 Mg (10 Mg/Ml) 4 Ml Vial IV 08/03/23 10:59
DAILY STEFFEN
Physical Exam
Vital Signs/Labs
Vital Signs
Temp Pulse Resp BP Pulse Ox
98.0 F 79 16 117/69 98
07/09/23 02:51 07/09/23 07:28 07/09/23 07:28 07/09/23 02:51 07/09/23 07:28
07/08/23 07/09/23 07/10/23
06:59 06:59 06:59
Actual Weight 288 lb 2 oz 286 lb 5 oz
PT 16.9 Sec (11.4-14.6) H 06/28/23 19:19
INR 1.34 06/28/23 19:19
APTT 36.2 Sec (23.4-35.0) H 06/28/23 19:19
Magnesium 1.4 mg/dl (1.6-2.3) L 06/29/23 03:52
Free T4 0.90 ng/dl (0.78-2.19) 06/30/23 11:43
06/29/23
03:52
[id number] Pept 7100
Physical Exam
Constitutional: No acute distress
EENT: Anicteric
Cardiovascular: Rhythm & rate is regular and Pedal edema present
Respiratory: Respiratory effort normal
GI: Soft
Neuro/Psych: AO x 3
Data Reviewed
-
Date of Service: July 09, 2023
EKG: Tracing Personally Visualized and interpreted
Echo: Report Reviewed by me
Labs: Labs Reviewed by me
[2023-07-09 08:58] LABS: % Basophils 0.4 % (0-2); % Eosinophils 1.7 % (0-6); % Lymphocytes 32.4 % (20.5-51.1); % Monocytes 5.7 % (1.7-9.3); % Neutrophils 58.8 % (42.2-75.2); Absolute Eosinophils 0.1 10^3/uL (0-0.7); Absolute Immature Granulocytes 0.1 10^3/uL (0-0.05); Absolute Lymphocytes 1.7 10^3/uL (1.2-3.4); Absolute Monocytes 0.3 10^3/uL (0.1-0.6); Absolute Neutrophils 3.1 10^3/uL (1.4-6.5); Hematocrit 28.4 % (37.0-47.0); Hemoglobin 8.4 g/dL (12.0-16.0); Mean Corp Hgb Conc. 29.6 g/dL (33.0-37.0); Mean Corpuscular Hgb 29.2 pg (27.0-31.0); Mean Corpuscular Volume 98.6 fL (81.0-99.0); Mean Platelet Volume 9.4 fL (7.4-10.4); Nucleated Red Blood Cells % 0 %; Platelet Count 340 10^3/uL (130-400); Red Blood Cell Count 2.88 10^6/uL (4.20-5.40); Red Cell Dist. Width 16.8 % (11.5-14.5); White Blood Cell Count 5.2 10^3/uL (4.8-10.8)
[2023-07-09 09:40] LABS: ALT (SGPT) 26 U/L (0-35); AST (SGOT) 51 U/L (14-36); Albumin 2.5 g/dl (3.5-5.0); Alkaline Phosphatase 207 U/L (38-126); Blood Urea Nitrogen 11 mg/dl (7-17); Calcium 6.9 mg/dl (8.4-10.2); Carbon Dioxide 29 mmol/L (22-30); Chloride 100 mmol/L (98-107); Estimated Creatinine Clearance > 125 ml/min; Glucose 79 mg/dl (70-99); Potassium 3.5 mmol/L (3.5-5.1); Sodium 137 mmol/L (135-145); Total Bilirubin 0.4 mg/dl (0.2-1.3); eGFR > 60.00
--- NOTE | 2023-07-09 09:46 | PTCARENOTE ---
Notified provider of patient's Ca 6.9. Awaiting orders.
[2023-07-09] MEDS: COREG 3.125 MG PO ×2 (10:38→19:56)
[2023-07-09 11:56] LABS: Glucose - Point of Care 97 mg/dl (70-99)
[2023-07-09 12:24] VITALS: BP 104/50
[2023-07-09] MEDS: ATIVAN 0.5 MG PO (14:30)
--- NOTE | 2023-07-09 15:40 | CM ---
Chart reviewed and plan will be for patient to return [facility] when stable, patient needs Auth for [facility].
Plan; Patient to return to [facility] when stable, needs Auth.
[2023-07-09 16:05] VITALS: BP 118/69
[2023-07-09 16:58] LABS: Glucose - Point of Care 116 mg/dl (70-99)
[2023-07-09] MEDS: LOVENOX 40 MG SC (17:23)
--- NOTE | 2023-07-09 17:25 | W.PN.HOSP.TC ---
Today's Communication/Plan
-
Ca supplement
Assessment / Plan
Assessment / Plan
Suspected septic shock
�- Multiple potential sources including pulmonary (L base pneumonia), (CAUTI), Skin (sacral decub)
Suspect some toxic metabolic encephalopathy secondary to above
generally improved, but as per pt not back to baseline
was on levophed; now off
�-completed 7 days of meropenem per ID. observe off abx.
Evaluated by neurology who does not think the fevers are from phenytoin
follow fever curve - afebrile since 06/30
�- Obtain records from [facility] to shed light on recent hospitalization, multiple calls but still waiting on records from [facility]. per [place] records,not much helpful
�-hip x-rays were ordered however patient refused
ammonia wnl; normal CK
LLL Pneumonia
Acute on Chronic Hypoxemic Respiratory Failure; on 3 L chronic o2
currently on 2 L/M SaO2 97%
COPD with possible Acute Exacerbation
started standing and prn nebs; cw IV decadron, decreased further to 4 mg q12 hr, will continue to taper
�- CXR with possible L base pneumonia and small effusion. + procal 1.85
�- IV abx completed per ID.
Suspect acute on chronic Anemia of Chronic Disease
some acute on chronic blood loss anemia from sacral decub
Hemoglobin 6.6 on 07/01, s/p 1 unit PRBC 07/01
Hgb 8.4
�- Unknown baseline.� Follow-up recent records from [facility] for comparison.
acute systolic HF.
per patient unknown if hx of CHF; unknown EF
used to be on lasix but now stopped
Echo 06/29 with EF 30-35%; global hypokinesis; cardiology following
IV lasix given 07/02. periods of hypotension so monitor closely. additional dose 07/05 of IV lasix.
cw IV lasix 40 mg bid
heart burn
maalox; PPI
Mild troponin elevation likely non-VA related
Monitor
Chronic Indwelling Mota Catheter
CAUTI
�- UA consistent with infection.� IV abx as noted above.
�- Follow-up culture data.
�- Mota exchanged in the ED
Hyponatremia
Monitor
Hypomagnesemia
Monitor
Leukopenia
Monitor
Avascular Necrosis of the Right Hip
�- Unclear chronicity of this condition.� Patient complains of pain at present and surrounding induration / increased warmth in tissues overlying the hip.
�xrays were ordered however patient refused
per daughter; orthopedics at [facility] has refused surgery until patient loses weight.
Suspect severe anxiety
ativan prn
Abnormal LFTs
monitor
Seizure Disorder
�- Unknown history, most recent seizure, etc.
�- Continue phenytoin and follow for any breakthrough seizures.
Hypocalcemia
Alb 2.5/Ca 6.9
will supplement
Benign Hypertension
DM-II
�- Patient has both listed diagnoses, but on no medications for either.
�- Follow BP / glucose.
�- Cover with SSI as needed.� A1C 5.2
Stage 3 large PI to L buttock extending down to Ischium, small hermosillo eschar, R buttock with small stage 2 PI. R thigh with stage 3 PI
wound care
Chronic Pain Syndrome
Chronic Opioid Dependence
Chronic Bed-Bound Status
�- Continue usual BID morphine; decreased dose. increased gabapentin,started standing tylenol
�- Continue oxycodone PRN - but at decreased dosing.
�- PT / OT evaluations.
�-Suspected bedbound status secondary to avascular necrosis of right hip. per patient its her right hip that she needs surgery which orthopedics at [facility] refused at this time and wants patient to lose weight before
Spoke with daughter in length 06/30 and she also thinks patient has been overly medicated due to her pain medications and this has been sent before by different physicians. I decreased her morphine dose this hospitalization.
Morbid Obesity due to excess calories / immobility
�- Affects all aspects of care.
�- This bed-bound 62y F will not be able to effect significant changes in diet or exercise to realize significant weight loss.
DVT Prophylaxis:� Lovenox
Code Status:� Full
Anticipated Discharge: > 48 hours
Subjective/Interval History
-
Date of Service: July 09, 2023
Generally does not feel well
Objective Data
-
Labs:
Laboratory Results
07/09/23
07:25
WBC 5.2
Hgb 8.4 L
Hct 28.4 L
Plt Count 340
Sodium 137
Potassium 3.5
Chloride 100
Carbon Dioxide 29
BUN 11
Creatinine 0.5 L
Glucose 79
Calcium 6.9 L*
Total Bilirubin 0.4
AST 51 H
ALT 26
Alkaline Phosphatase 207 H
Vital Signs:
Vital Signs
Temp Pulse Resp BP Pulse Ox
98.0 F 66 18 118/69 97
07/09/23 16:05 07/09/23 16:05 07/09/23 16:05 07/09/23 16:05 07/09/23 16:05
I&O
07/08/23 07/09/23 07/10/23
06:59 06:59 06:59
Intake Total 1320 / 1320 1920 / 1920
Output Total 4500 / 4500 5100 / 5100
Balance -3180 / -3180 -3180 / -3180
Review of Systems
-
History Source: Patient and Coordinated Provider
Constitutional: Denies Fever
EENT: Reports No Symptoms Reported
Respiratory: Reports No Symptoms
Cardiac: Reports No Symptoms
Neuro: Reports Weakness
Physical Exam
-
General: Well Developed, Well Nourished and No Apparent Distress
HEENT: Normocephalic, Atraumatic and Moist Mucous Membranes
Respiratory: Clear to Auscultation; Negative Wheezes, Rales or Rhonchi
Cardiac: Regular Rhythm and S1/S2
GI: Soft, Nontender and Nondistended
Musculoskeletal: No Clubbing, No Cyanosis and No Edema
Skin: Ulcers (rt buttock decubitus)
Neuro: Awake and Alert
[2023-07-09] MEDS: CALCIUM GLUCONATE 100 IV (18:23)
[2023-07-09 19:00] VITALS: BP 117/61
[2023-07-09] MEDS: DECADRON 2 MG IV (19:55)
[2023-07-09] MEDS: LIPITOR 40 MG PO (21:00)
[2023-07-09 23:00] VITALS: BP 109/57
[2023-07-10] VITALS (7 sets, daily range): BP systolic 93–111; BP diastolic 43–57; BMI 40.5
[2023-07-10] MEDS: ATIVAN 0.5 MG PO ×2 (00:01→19:54)
[2023-07-10] MEDS: DILAUDID 0.5 MG IV ×5 (03:59→21:23)
[2023-07-10 06:18] LABS: % Basophils 0.5 % (0-2); % Eosinophils 2.1 % (0-6); % Immature Granulocytes 0.5 % (0-0.5); % Lymphocytes 33.2 % (20.5-51.1); % Monocytes 6.7 % (1.7-9.3); Absolute Eosinophils 0.1 10^3/uL (0-0.7); Absolute Monocytes 0.4 10^3/uL (0.1-0.6); Absolute Neutrophils 3.5 10^3/uL (1.4-6.5); Hematocrit 24.1 % (37.0-47.0); Hemoglobin 7.6 g/dL (12.0-16.0); Mean Corp Hgb Conc. 31.5 g/dL (33.0-37.0); Mean Corpuscular Hgb 29.8 pg (27.0-31.0); Mean Corpuscular Volume 94.5 fL (81.0-99.0); Nucleated Red Blood Cells % 0 %; Platelet Count 259 10^3/uL (130-400); Red Blood Cell Count 2.55 10^6/uL (4.20-5.40); Red Cell Dist. Width 16.6 % (11.5-14.5); White Blood Cell Count 6.2 10^3/uL (4.8-10.8)
[2023-07-10 06:34] LABS: Ionized Calcium 0.87 mMOL/L (1.15-1.33)
[2023-07-10 07:12] LABS: ALT (SGPT) 23 U/L (0-35); AST (SGOT) 44 U/L (14-36); Albumin 2.3 g/dl (3.5-5.0); Alkaline Phosphatase 185 U/L (38-126); Blood Urea Nitrogen 12 mg/dl (7-17); Calcium 6.6 mg/dl (8.4-10.2); Carbon Dioxide 29 mmol/L (22-30); Chloride 104 mmol/L (98-107); Estimated Creatinine Clearance > 125 ml/min; Glucose 93 mg/dl (70-99); Potassium 3.5 mmol/L (3.5-5.1); Sodium 138 mmol/L (135-145); Total Bilirubin 0.4 mg/dl (0.2-1.3); Total Protein 4.7 g/dl (6.3-8.2); eGFR > 60.00
--- NOTE | 2023-07-10 07:14 | PTCARENOTE ---
Notified provider of patient's critical calcium level via TT
[2023-07-10] MEDS: ATROVENT NEBULES 0.5 MG INH ×3 (07:31→20:52)
[2023-07-10] MEDS: XOPENEX 1.25 MG INHALANT SOLUTION INH ×3 (07:31→20:52)
[2023-07-10 07:50] LABS: Glucose - Point of Care 105 mg/dl (70-99)
[2023-07-10] MEDS: NOVOLOG FLEXPEN-LOW RESISTANCE SC ×3 (08:03→17:11)
[2023-07-10] MEDS: DECADRON 2 MG IV ×2 (08:25→19:54)
[2023-07-10] MEDS: CALCIUM GLUCONATE 100 IV (08:25)
[2023-07-10] MEDS: LASIX 40 MG IV (08:25)
[2023-07-10] MEDS: NEURONTIN 900 MG PO ×3 (08:26→21:19)
[2023-07-10] MEDS: SANTYL OINTMENT 1 APPLIC TOPICAL (08:26)
[2023-07-10] MEDS: MUCINEX 1200 MG PO ×2 (08:26→19:54)
[2023-07-10] MEDS: TYLENOL 1000 MG PO ×3 (08:27→21:19)
[2023-07-10] MEDS: MS CONTIN (EXTENDED RELEASE) 15 MG PO ×2 (08:27→20:29)
[2023-07-10] MEDS: SENOKOT-S PO (08:27)
[2023-07-10] MEDS: DILANTIN 200 MG PO (08:27)
[2023-07-10] MEDS: FOLVITE 1 MG PO (08:27)
[2023-07-10] MEDS: COREG 3.125 MG PO ×2 (08:27→22:06)
[2023-07-10] MEDS: PROTONIX 40 MG PO (08:27)
[2023-07-10] MEDS: ZOLOFT 100 MG PO (08:27)
--- NOTE | 2023-07-10 10:07 | W.PN.CD ---
Today's Communication / Plan
-
- cont current diuresis
Impression / Plan
-
Assessment/Plan: 62 y/o female with emphysema/COPD, hx seizure on meds, anemia, remote hx [place] per patient (no stents also per patient, details not clear), CHF (type and details unknown), chronic Mota, ambulatory dysfunction, obesity, cigarette use,
daily ETOH who presented from [place] for fever (106.1) and altered mental status, as well as sats 86%. She is being treated for possible sepsis (improving/resolved) related to PNA, CAUTI, and decub ulcer .
Suspected sepsis: improved/resolving
Cardiomyopathy EF 30-35% - with acute systolic HF
-patient reports history of CHF, details unknown, doesn't see cardiology as OP but only in hospitals -> despite multiple calls we weren't able to get [facility] records. We do have [place] records that shows HF meds but no report of LVEF or valves.
-GDMT limited (BB/ACEI/ARB/ARNI/MRA) due to hypotension (required Levophed) and suspected UTI (SGLT2)
-Increase diuretics to lasix BID
- adding coreg 3.125, believe she was on 6.25 bid prior
Moderate to severe MR - unknown chronicity
- diuresis as above
- recheck when dry
Abnormal troponin: non-ischemic myocardial injury in setting of acute illness
ETOH use:
-patient reports 1-2 vodka drinks daily
-recommend total cessation
Anemia: Hb 7.5
COPD:
-resolving
-on O2
-still smokes 1-2 cigs per day, recommended total cessation
Indigestion: improved with Tums, Maalox, Protonix.
Dispo
- She denies heart issues but admits to recurrent syncope 'from COPD' (?). She was discharged from another hospital (unknown) and had home health, [facility], etc at home. Her benefits ran out and the aides stopped coming. She sat in a chair for
six days without ever getting out -> [facility] admit with bedsores and infection. Then NH. Then here
- I suspect she will need NH placement permanently, 07/08 says that she has a [place] and would like to move there
Subjective:
Feeling better
TTE:
Left ventricle is moderately dilated.Moderately reduced left ventricular systolic function.Global hypokinesis.Left ventricular ejection fraction is 30-35%
Moderate-severe mitral regurgitation.
Mild to moderate tricuspid regurgitation. Estimated pulmonary artery pressure of 39 mmHg is moderately elevated.
Laboratory Data
07/03/23 07/07/23
04:55 05:45
Hgb 7.8 L 7.5 L
Creatinine 0.5 L 0.5 L
Selected Entries
06/28/23
20:09 06/28/23
20:10 07/03/23
03:15
Actual Weight 285 lb 4.45 oz 285 lb 4.45 oz 287 lb 0.67 oz
07/07/23
06:00
Actual Weight 283 lb 8 oz
Generic Name Dose Route Start Last Admin
Trade Name Freq PRN Reason Stop Dose Admin
Atorvastatin Calcium 40 mg 06/29/23 01:16
Atorvastatin (Lipitor) 40 Mg Tablet PO 07/27/23 01:15
HS STEFFEN
Atorvastatin Calcium 40 mg 06/29/23 01:16
Atorvastatin (Lipitor) 40 Mg Tablet PO 07/27/23 01:15
HS STEFFEN
Furosemide 40 mg 07/06/23 11:00
Furosemide 40 Mg (10 Mg/Ml) 4 Ml Vial IV 08/03/23 10:59
DAILY STEFFEN
Physical Exam
Vital Signs/Labs
Vital Signs
Temp Pulse Resp BP Pulse Ox
97.6 F 103 16 100/43 97
07/10/23 07:08 07/10/23 07:33 07/10/23 07:33 07/10/23 07:08 07/10/23 07:33
07/09/23 07/10/23 07/11/23
06:59 06:59 06:59
Actual Weight 286 lb 5 oz 282 lb
07/10/23 06:03
07/10/23 06:04
PT 16.9 Sec (11.4-14.6) H 06/28/23 19:19
INR 1.34 06/28/23 19:19
APTT 36.2 Sec (23.4-35.0) H 06/28/23 19:19
Magnesium 1.4 mg/dl (1.6-2.3) L 06/29/23 03:52
Free T4 0.90 ng/dl (0.78-2.19) 06/30/23 11:43
06/29/23
03:52
Kly-B-Zhitnxtjjia Pept 7100
Physical Exam
Cardiovascular: Rhythm & rate is regular and Pedal edema present
Respiratory: Respiratory effort normal and Crackles Present
Data Reviewed
-
Date of Service: July 10, 2023
EKG: Tracing Personally Visualized and interpreted
Labs: Labs Reviewed by me
[2023-07-10 12:36] LABS: Glucose - Point of Care 132 mg/dl (70-99)
[2023-07-10] MEDS: ROXICODONE 10 MG PO (14:15)
--- NOTE | 2023-07-10 16:20 | CM ---
Patient seen bedside, reports she has been feeling exhausted. Patient from [facility], will require auth to return to [facility]. CM will continue to follow for discharge planning needs.
Plan; Patient to return to [facility] when stable, needs Auth.
[2023-07-10 17:10] LABS: Glucose - Point of Care 105 mg/dl (70-99)
[2023-07-10] MEDS: LOVENOX 40 MG SC (17:17)
--- NOTE | 2023-07-10 18:22 | W.PN.HOSP.TC ---
Today's Communication/Plan
-
follow CBC, BMP
If Hgb drops further may need another transfusion
Assessment / Plan
Assessment / Plan
Suspected septic shock
�- Multiple potential sources including pulmonary (L base pneumonia), (CAUTI), Skin (sacral decub)
Suspect some toxic metabolic encephalopathy secondary to above
generally improved, but as per pt not back to baseline
was on levophed; now off
�-completed 7 days of meropenem per ID. observe off abx.
Evaluated by neurology who does not think the fevers are from phenytoin
follow fever curve - afebrile since 06/30
�- Obtain records from [facility] to shed light on recent hospitalization, multiple calls but still waiting on records from [facility]. per [place] records,not much helpful
�-hip x-rays were ordered however patient refused
ammonia wnl; normal CK
Mentation is better today. she is more conversant and answering questions
LLL Pneumonia
Acute on Chronic Hypoxemic Respiratory Failure; on 3 L chronic o2
currently on 2 L/M SaO2 97%
COPD with possible Acute Exacerbation
started standing and prn nebs; cw IV decadron, decreased further to 4 mg q12 hr, will continue to taper
�- CXR with possible L base pneumonia and small effusion. + procal 1.85
�- IV abx completed per ID.
Suspect acute on chronic Anemia of Chronic Disease
some acute on chronic blood loss anemia from sacral decub
Hemoglobin 6.6 on 07/01, s/p 1 unit PRBC 07/01
Hgb 8.4-->7.6, will follow, may need another unit. Will need to repeat T&S if needd
�- Unknown baseline.� Follow-up recent records from [facility] for comparison.
acute systolic HF.
per patient unknown if hx of CHF; unknown EF
used to be on lasix but now stopped
Echo 06/29 with EF 30-35%; global hypokinesis; cardiology following
IV lasix given 07/02. periods of hypotension so monitor closely. additional dose 07/05 of IV lasix.
cw IV lasix 40 mg bid
heart burn
maalox; PPI
Mild troponin elevation likely non-NM related
Monitor
Chronic Indwelling Mota Catheter
CAUTI
�- UA consistent with infection.� IV abx as noted above.
�- Urine cx was neg
�- Mota exchanged in the ED
Hyponatremia
Monitor
Hypomagnesemia
Monitor
Leukopenia
Monitor
Avascular Necrosis of the Right Hip
�- Unclear chronicity of this condition.� Patient complains of pain at present and surrounding induration / increased warmth in tissues overlying the hip.
�xrays were ordered however patient refused
per daughter; orthopedics at [facility] has refused surgery until patient loses weight.
Suspect severe anxiety
ativan prn
Abnormal LFTs
monitor
Seizure Disorder
�- Unknown history, most recent seizure, etc.
�- Continue phenytoin and follow for any breakthrough seizures.
Hypocalcemia/Hypoalbuminemia
Alb 2.5/Ca 6.9
will supplement
IV Calcium given 07/09 Ca on 07/10 6.6--2 gms Ca given, will check Ca tomorrow
Benign Hypertension
DM-II
�- Patient has both listed diagnoses, but on no medications for either.
�- Follow BP / glucose.
�- Cover with SSI as needed.� A1C 5.2
Stage 3 large PI to L buttock extending down to Ischium, small hermosillo eschar, R buttock with small stage 2 PI. R thigh with stage 3 PI
wound care
Chronic Pain Syndrome
Chronic Opioid Dependence
Chronic Bed-Bound Status
�- Continue usual BID morphine; decreased dose. increased gabapentin,started standing tylenol
�- Continue oxycodone PRN - but at decreased dosing.
�- PT / OT evaluations.
�-Suspected bedbound status secondary to avascular necrosis of right hip. per patient its her right hip that she needs surgery which orthopedics at [facility] refused at this time and wants patient to lose weight before
Spoke with daughter in length 06/30 and she also thinks patient has been overly medicated due to her pain medications and this has been sent before by different physicians. I decreased her morphine dose this hospitalization.
Morbid Obesity due to excess calories / immobility
�- Affects all aspects of care.
�- This bed-bound 62y F will not be able to effect significant changes in diet or exercise to realize significant weight loss.
DVT Prophylaxis:� Lovenox
Code Status:� Full
Anticipated Discharge: > 48 hours
Subjective/Interval History
-
Date of Service: July 10, 2023
Voice is stronger, less ill appearing
Objective Data
-
Labs:
Laboratory Results
07/10/23 07/10/23
06:03 06:04
WBC 6.2
Hgb 7.6 L
Hct 24.1 L
Plt Count 259 D
Sodium 138
Potassium 3.5
Chloride 104
Carbon Dioxide 29
BUN 12
Creatinine 0.5 L
Glucose 93
Calcium 6.6 L*
Total Bilirubin 0.4
AST 44 H
ALT 23
Alkaline Phosphatase 185 H
Vital Signs:
Vital Signs
Temp Pulse Resp BP Pulse Ox
98.6 F 102 18 108/53 97
07/10/23 11:46 07/10/23 13:21 07/10/23 13:21 07/10/23 11:46 07/10/23 13:21
I&O
07/09/23 07/10/23 07/11/23
06:59 06:59 06:59
Intake Total 1920 / 1920 960 / 960
Output Total 5100 / 5100 2450 / 2450
Balance -3180 / -3180 -1490 / -1490
Review of Systems
-
History Source: Patient and Coordinated Provider
Constitutional: Denies Fever
EENT: Reports No Symptoms Reported
Respiratory: Reports No Symptoms
Cardiac: Reports No Symptoms
Neuro: Reports Weakness
Physical Exam
-
General: Well Developed, Well Nourished and No Apparent Distress
HEENT: Normocephalic, Atraumatic and Moist Mucous Membranes
Respiratory: Clear to Auscultation; Negative Wheezes, Rales or Rhonchi
Cardiac: Regular Rhythm and S1/S2
GI: Soft, Nontender and Nondistended
Musculoskeletal: No Clubbing, No Cyanosis and No Edema
Skin: Ulcers (lt buttock decubitus)
Neuro: Awake and Alert
[2023-07-10] MEDS: ProAmatine 10 MG PO (20:29)
[2023-07-10] MEDS: SENOKOT-S 1 TABLET PO (20:30)
[2023-07-10 21:05] LABS: Glucose - Point of Care 121 mg/dl (70-99)
[2023-07-10] MEDS: LIPITOR 40 MG PO (21:19)
[2023-07-10] MEDS: LASIX IV (21:20)
[2023-07-11] MEDS: DILAUDID 0.5 MG IV ×6 (01:25→22:45)
[2023-07-11] MEDS: ATIVAN 0.5 MG PO ×3 (02:17→20:38)
[2023-07-11 03:00] VITALS: BP 109/57
[2023-07-11 06:00] VITALS: BMI 40.0
[2023-07-11] MEDS: XOPENEX 1.25 MG INHALANT SOLUTION INH (07:36)
[2023-07-11] MEDS: ATROVENT NEBULES 0.5 MG INH (07:36)
[2023-07-11 08:03] LABS: Blood Urea Nitrogen 11 mg/dl (7-17); Calcium 6.3 mg/dl (8.4-10.2); Carbon Dioxide 31 mmol/L (22-30); Chloride 108 mmol/L (98-107); Estimated Creatinine Clearance > 125 ml/min; Glucose 84 mg/dl (70-99); Potassium 3.4 mmol/L (3.5-5.1); Sodium 137 mmol/L (135-145); eGFR > 60.00
[2023-07-11 08:30] LABS: % Basophils 0.5 % (0-2); % Eosinophils 2.1 % (0-6); % Immature Granulocytes 0.3 % (0-0.5); % Lymphocytes 33.6 % (20.5-51.1); % Monocytes 5.8 % (1.7-9.3); % Neutrophils 57.7 % (42.2-75.2); Absolute Eosinophils 0.1 10^3/uL (0-0.7); Absolute Lymphocytes 2.1 10^3/uL (1.2-3.4); Absolute Monocytes 0.4 10^3/uL (0.1-0.6); Absolute Neutrophils 3.7 10^3/uL (1.4-6.5); Hemoglobin 7.6 g/dL (12.0-16.0); Mean Corp Hgb Conc. 30.4 g/dL (33.0-37.0); Mean Corpuscular Volume 95.4 fL (81.0-99.0); Mean Platelet Volume 9.3 fL (7.4-10.4); Nucleated Red Blood Cells % 0 %; Platelet Count 276 10^3/uL (130-400); Red Blood Cell Count 2.62 10^6/uL (4.20-5.40); Red Cell Dist. Width 16.5 % (11.5-14.5); White Blood Cell Count 6.3 10^3/uL (4.8-10.8)
[2023-07-11] MEDS: NOVOLOG FLEXPEN-LOW RESISTANCE SC ×3 (08:35→17:10)
[2023-07-11] MEDS: NEURONTIN 900 MG PO ×3 (08:36→21:30)
[2023-07-11] MEDS: FOLVITE 1 MG PO (08:36)
[2023-07-11] MEDS: TYLENOL 1000 MG PO ×3 (08:36→21:30)
[2023-07-11] MEDS: COREG 3.125 MG PO (08:36)
[2023-07-11] MEDS: MS CONTIN (EXTENDED RELEASE) 15 MG PO ×2 (08:39→20:31)
[2023-07-11] MEDS: LASIX 40 MG IV ×2 (08:39→20:29)
[2023-07-11] MEDS: ZOLOFT 100 MG PO (08:39)
[2023-07-11] MEDS: DILANTIN 200 MG PO (08:39)
[2023-07-11] MEDS: MUCINEX 1200 MG PO ×2 (08:39→20:31)
[2023-07-11] MEDS: SENOKOT-S 1 TABLET PO ×2 (08:39→20:31)
[2023-07-11] MEDS: PROTONIX 40 MG PO (08:39)
[2023-07-11] MEDS: SANTYL OINTMENT 1 APPLIC TOPICAL (08:40)
[2023-07-11] MEDS: DECADRON 2 MG IV ×2 (08:40→20:30)
--- NOTE | 2023-07-11 09:26 | W.PN.CD ---
Today's Communication / Plan
-
- cont w diuresis
Impression / Plan
-
Assessment/Plan: 62 y/o female with emphysema/COPD, hx seizure on meds, anemia, remote hx [place] per patient (no stents also per patient, details not clear), CHF (type and details unknown), chronic Mota, ambulatory dysfunction, obesity, cigarette use,
daily ETOH who presented from [place] for fever (106.1) and altered mental status, as well as sats 86%. She is being treated for possible sepsis (improving/resolved) related to PNA, CAUTI, and decub ulcer .
Suspected sepsis: improved/resolving
Cardiomyopathy EF 30-35% - with acute systolic HF
-patient reports history of CHF, details unknown, doesn't see cardiology as OP but only in hospitals -> despite multiple calls we weren't able to get [facility] records. We do have [place] records that shows HF meds but no report of LVEF or valves.
-GDMT limited (BB/ACEI/ARB/ARNI/MRA) due to hypotension (required Levophed) and suspected UTI (SGLT2)
-Increased diuretics to lasix BID - she is tolerating this and continues to diurese - may be getting close to euvolemic
- added coreg 3.125, believe she was on 6.25 bid prior but limited now by low BP
Moderate to severe MR - unknown chronicity
- diuresis as above
- recheck when dry
Abnormal troponin: non-ischemic myocardial injury in setting of acute illness
ETOH use:
-patient reports 1-2 vodka drinks daily
-recommend total cessation
Anemia: Hb 7.5
COPD:
-resolving
-on O2
-still smokes 1-2 cigs per day, recommended total cessation
Indigestion: improved with Tums, Maalox, Protonix.
Dispo
- She denies heart issues but admits to recurrent syncope 'from COPD' (?). She was discharged from another hospital (unknown) and had home health, [facility], etc at home. Her benefits ran out and the aides stopped coming. She sat in a chair for
six days without ever getting out -> [facility] admit with bedsores and infection. Then NH. Then here
- I suspect she will need NH placement permanently, 07/08 says that she has a [place] and [place] to move there
Subjective:
Feeling better
TTE:
Left ventricle is moderately dilated.Moderately reduced left ventricular systolic function.Global hypokinesis.Left ventricular ejection fraction is 30-35%
Moderate-severe mitral regurgitation.
Mild to moderate tricuspid regurgitation. Estimated pulmonary artery pressure of 39 mmHg is moderately elevated.
Laboratory Data
07/03/23 07/07/23
04:55 05:45
Hgb 7.8 L 7.5 L
Creatinine 0.5 L 0.5 L
Selected Entries
06/28/23
20:09 06/28/23
20:10 07/03/23
03:15
Actual Weight 285 lb 4.45 oz 285 lb 4.45 oz 287 lb 0.67 oz
07/07/23
06:00
Actual Weight 283 lb 8 oz
Generic Name Dose Route Start Last Admin
Trade Name Freq PRN Reason Stop Dose Admin
Atorvastatin Calcium 40 mg 06/29/23 01:16
Atorvastatin (Lipitor) 40 Mg Tablet PO 07/27/23 01:15
HS STEFFEN
Atorvastatin Calcium 40 mg 06/29/23 01:16
Atorvastatin (Lipitor) 40 Mg Tablet PO 07/27/23 01:15
HS STEFFEN
Furosemide 40 mg 07/06/23 11:00
Furosemide 40 Mg (10 Mg/Ml) 4 Ml Vial IV 08/03/23 10:59
DAILY STEFFEN
Physical Exam
Vital Signs/Labs
Vital Signs
Temp Pulse Resp BP Pulse Ox
98.0 F 77 16 108/51 97
07/11/23 03:00 07/11/23 07:40 07/11/23 07:40 07/11/23 08:39 07/11/23 07:40
07/10/23 07/11/23 07/12/23
06:59 06:59 06:59
Actual Weight 282 lb 279 lb
07/11/23 07:17
07/11/23 07:18
PT 16.9 Sec (11.4-14.6) H 06/28/23 19:19
INR 1.34 06/28/23 19:19
APTT 36.2 Sec (23.4-35.0) H 06/28/23 19:19
Magnesium 1.4 mg/dl (1.6-2.3) L 06/29/23 03:52
Free T4 0.90 ng/dl (0.78-2.19) 06/30/23 11:43
06/29/23
03:52
Ntc-B-Msnutvpbrte Pept 7100
Physical Exam
Cardiovascular: Rhythm & rate is regular and Pedal edema present
Respiratory: Respiratory effort normal and Rhonchi Present
Data Reviewed
-
Date of Service: July 11, 2023
EKG: Tracing Personally Visualized and interpreted
Labs: Labs Reviewed by me
[2023-07-11 11:25] LABS: Glucose - Point of Care 131 mg/dl (70-99)
[2023-07-11 11:44] VITALS: BP 107/57
[2023-07-11] MEDS: ROXICODONE 10 MG PO (11:45)
[2023-07-11] MEDS: CALCIUM GLUCONATE 290 MG IV (15:16)
[2023-07-11 15:28] VITALS: BP 112/54
--- NOTE | 2023-07-11 16:59 | W.PN.HOSP.TC ---
Today's Communication/Plan
-
Calcium supplement
Nephrology consult
Assessment / Plan
Assessment / Plan
Suspected septic shock
�- Multiple potential sources including pulmonary (L base pneumonia), (CAUTI), Skin (sacral decub)
Suspect some toxic metabolic encephalopathy secondary to above
generally improved, but as per pt not back to baseline
was on levophed; now off
�-completed 7 days of meropenem per ID. observe off abx.
Evaluated by neurology who does not think the fevers are from phenytoin
follow fever curve - afebrile since 06/30
�- Obtain records from [facility] to shed light on recent hospitalization, multiple calls but still waiting on records from [facility]. per [place] records,not much helpful
�-hip x-rays were ordered however patient refused
ammonia wnl; normal CK
Mentation is better today. she is more conversant and answering questions
LLL Pneumonia
Acute on Chronic Hypoxemic Respiratory Failure; on 3 L chronic o2
currently on 2 L/M SaO2 97%
COPD with possible Acute Exacerbation
started standing and prn nebs; cw IV decadron, decreased further to 4 mg q12 hr, will continue to taper
�- CXR with possible L base pneumonia and small effusion. + procal 1.85
�- IV abx completed per ID.
Suspect acute on chronic Anemia of Chronic Disease
some acute on chronic blood loss anemia from sacral decub
Hemoglobin 6.6 on 07/01, s/p 1 unit PRBC 07/01
Hgb 8.4-->7.6-->7.6
�- Unknown baseline.� Follow-up recent records from [facility] for comparison.
acute systolic HF.
per patient unknown if hx of CHF; unknown EF
used to be on lasix but now stopped
Echo 06/29 with EF 30-35%; global hypokinesis; cardiology following
IV lasix given 07/02. periods of hypotension so monitor closely. additional dose 07/05 of IV lasix.
cw IV lasix 40 mg bid
Cardio believes approaching euvolemia
heart burn
maalox; PPI
Mild troponin elevation likely non-[place] related
Monitor
Chronic Indwelling Mota Catheter
CAUTI
�- UA consistent with infection.� IV abx as noted above.
�- Urine cx was neg
�- Mota exchanged in the ED
Hyponatremia
Monitor
Hypomagnesemia
Monitor
Leukopenia
Monitor
Avascular Necrosis of the Right Hip
�- Unclear chronicity of this condition.� Patient complains of pain at present and surrounding induration / increased warmth in tissues overlying the hip.
�xrays were ordered however patient refused
per daughter; orthopedics at [facility] has refused surgery until patient loses weight.
Suspect severe anxiety
ativan prn
Abnormal LFTs
monitor
Seizure Disorder
�- Unknown history, most recent seizure, etc.
�- Continue phenytoin and follow for any breakthrough seizures.
Hypocalcemia/Hypoalbuminemia
Alb 2.5/Ca 6.9
will supplement
IV Calcium given 07/09 Ca on 07/10 6.6--2 gms -->07/11-6.3--4gms Ca ordered
will consult Renal
Benign Hypertension
DM-II
�- Patient has both listed diagnoses, but on no medications for either.
�- Follow BP / glucose.
�- Cover with SSI as needed.� A1C 5.2
Stage 3 large PI to L buttock extending down to Ischium, small hermosillo eschar, R buttock with small stage 2 PI. R thigh with stage 3 PI
wound care
Chronic Pain Syndrome
Chronic Opioid Dependence
Chronic Bed-Bound Status
�- Continue usual BID morphine; decreased dose. increased gabapentin,started standing tylenol
�- Continue oxycodone PRN - but at decreased dosing.
�- PT / OT evaluations.
�-Suspected bedbound status secondary to avascular necrosis of right hip. per patient its her right hip that she needs surgery which orthopedics at [facility] refused at this time and wants patient to lose weight before
Spoke with daughter in length 06/30 and she also thinks patient has been overly medicated due to her pain medications and this has been sent before by different physicians. I decreased her morphine dose this hospitalization.
Morbid Obesity due to excess calories / immobility
�- Affects all aspects of care.
�- This bed-bound 62y F will not be able to effect significant changes in diet or exercise to realize significant weight loss.
DVT Prophylaxis:� Lovenox
Code Status:� Full
Anticipated Discharge: > 48 hours
Subjective/Interval History
-
Date of Service: July 11, 2023
Pt states does not feel well, but speech is more fluent past 1-2 days
Objective Data
-
Labs:
Laboratory Results
07/11/23 07/11/23
07:17 07:18
WBC 6.3
Hgb 7.6 L
Hct 25.0 L
Plt Count 276
Sodium 137
Potassium 3.4 L
Chloride 108 H
Carbon Dioxide 31 H
BUN 11
Creatinine 0.5 L
Glucose 84
Calcium 6.3 L*
Vital Signs:
Vital Signs
Temp Pulse Resp BP Pulse Ox
97.8 F 65 16 112/54 98
07/11/23 15:28 07/11/23 15:28 07/11/23 15:28 07/11/23 15:28 07/11/23 15:28
I&O
07/10/23 07/11/23 07/12/23
06:59 06:59 06:59
Intake Total 960 / 960 1620 / 1620
Output Total 2450 / 2450 1999 / 1999
Balance -1490 / -1490 -380 / -380
Review of Systems
-
History Source: Patient and Coordinated Provider
Constitutional: Denies Fever
EENT: Reports No Symptoms Reported
Respiratory: Reports No Symptoms
Cardiac: Reports No Symptoms
Neuro: Reports Weakness
Physical Exam
-
General: Well Developed, Well Nourished and No Apparent Distress
HEENT: Normocephalic, Atraumatic and Moist Mucous Membranes
Respiratory: Clear to Auscultation; Negative Wheezes, Rales or Rhonchi
Cardiac: Regular Rhythm and S1/S2
GI: Soft, Nontender and Nondistended
Musculoskeletal: No Clubbing, No Cyanosis and No Edema
Skin: Ulcers (lt buttock decubitus)
Neuro: Awake and Alert
[2023-07-11 17:07] LABS: Glucose - Point of Care 119 mg/dl (70-99)
[2023-07-11] MEDS: LOVENOX 40 MG SC (17:38)
[2023-07-11 19:47] VITALS: BP 93/43
[2023-07-11] MEDS: COREG PO (20:28)
[2023-07-11 20:52] LABS: Glucose - Point of Care 121 mg/dl (70-99)
[2023-07-11] MEDS: LIPITOR 40 MG PO (21:30)
[2023-07-11 23:51] VITALS: BP 107/58
[2023-07-12 04:04] VITALS: BP 108/65
[2023-07-12] MEDS: DILAUDID 0.5 MG IV ×5 (04:13→20:38)
[2023-07-12] MEDS: ATIVAN 0.5 MG PO (04:52)
[2023-07-12 04:57] VITALS: BMI 38.8
[2023-07-12 05:31] LABS: % Basophils 0.5 % (0-2); % Eosinophils 1.5 % (0-6); % Immature Granulocytes 0.3 % (0-0.5); % Monocytes 5.1 % (1.7-9.3); % Neutrophils 62.6 % (42.2-75.2); Absolute Eosinophils 0.1 10^3/uL (0-0.7); Absolute Lymphocytes 1.8 10^3/uL (1.2-3.4); Absolute Monocytes 0.3 10^3/uL (0.1-0.6); Absolute Neutrophils 3.8 10^3/uL (1.4-6.5); Hematocrit 26.4 % (37.0-47.0); Hemoglobin 8.2 g/dL (12.0-16.0); Mean Corp Hgb Conc. 31.1 g/dL (33.0-37.0); Mean Corpuscular Hgb 29.4 pg (27.0-31.0); Mean Corpuscular Volume 94.6 fL (81.0-99.0); Nucleated Red Blood Cells % 0 %; Platelet Count 218 10^3/uL (130-400); Red Blood Cell Count 2.79 10^6/uL (4.20-5.40); Red Cell Dist. Width 16.4 % (11.5-14.5)
[2023-07-12 05:57] LABS: Blood Urea Nitrogen 15 mg/dl (7-17); Calcium 7.4 mg/dl (8.4-10.2); Carbon Dioxide 31 mmol/L (22-30); Chloride 105 mmol/L (98-107); Estimated Creatinine Clearance > 125 ml/min; Glucose 113 mg/dl (70-99); Potassium 3.6 mmol/L (3.5-5.1); Sodium 137 mmol/L (135-145); eGFR > 60.00
[2023-07-12 07:30] VITALS: BP 107/57
[2023-07-12 07:48] LABS: Glucose - Point of Care 110 mg/dl (70-99)
[2023-07-12] MEDS: ZOLOFT 100 MG PO (08:00)
[2023-07-12] MEDS: DILANTIN 200 MG PO (08:00)
[2023-07-12] MEDS: MUCINEX 1200 MG PO ×2 (08:00→20:37)
[2023-07-12] MEDS: NEURONTIN 900 MG PO ×3 (08:00→20:37)
[2023-07-12] MEDS: TYLENOL 1000 MG PO ×3 (08:00→20:37)
[2023-07-12] MEDS: DECADRON 2 MG IV ×2 (08:01→20:39)
[2023-07-12] MEDS: MS CONTIN (EXTENDED RELEASE) 15 MG PO ×2 (08:01→19:37)
[2023-07-12] MEDS: FOLVITE 1 MG PO (08:01)
[2023-07-12] MEDS: COREG 3.125 MG PO (08:01)
[2023-07-12] MEDS: PROTONIX 40 MG PO (08:01)
[2023-07-12] MEDS: SENOKOT-S 1 TABLET PO ×2 (08:01→20:37)
[2023-07-12] MEDS: LASIX 40 MG IV ×2 (08:02→20:38)
[2023-07-12] MEDS: NOVOLOG FLEXPEN-LOW RESISTANCE SC ×3 (08:02→16:43)
[2023-07-12] MEDS: SANTYL OINTMENT TOPICAL (08:03)
--- NOTE | 2023-07-12 08:27 | W.PN.CD ---
Today's Communication / Plan
-
BP is better: she is tolerating coreg 3.125mg bid
case mgmt consult for entresto 24/26mg bid
continue lasix 40mg IV bid
assess for PO lasix tomorrow
Impression / Plan
-
Assessment/Plan: 62 y/o female with emphysema/COPD, hx seizure on meds, anemia, remote hx [place] per patient (no stents also per patient, details not clear), CHF (type and details unknown), chronic Mota, ambulatory dysfunction, obesity, cigarette use,
daily ETOH who presented from [place] for fever (106.1) and altered mental status, as well as sats 86%. She is being treated for possible sepsis (improving/resolved) related to PNA, CAUTI, and decub ulcer .
Sepsis: improved/resolving
Cardiomyopathy EF 30-35% - with acute systolic HF, severe
-patient reports history of CHF, details unknown, doesn't see cardiology as OP but only in hospitals -> despite multiple calls we weren't able to get [place] records. We do have [place] records that shows HF meds but no report of LVEF or valves.
-GDMT limited (BB/ACEI/ARB/ARNI/MRA) due to hypotension (required Levophed this admission) and suspected UTI (SGLT2)
-BP is better: she is tolerating coreg 3.125mg bid
-case mgmt consult for entresto 24/26mg bid
-continue lasix 40mg IV bid, with close monitoring of labs and tele
Moderate to severe MR - unknown chronicity
- diuresis as above
- will repeat as outpatient
Abnormal troponin: non-ischemic myocardial injury in setting of acute illness
ETOH use:
-patient reports 1-2 vodka drinks daily
-recommended total cessation
COPD:
-improved
-on O2
-still smokes 1-2 cigs per day, recommended total cessation
Indigestion: improved with Tums, Maalox, Protonix.
Dispo
- She denies heart issues but admits to recurrent syncope 'from COPD' (?). She was discharged from another hospital (unknown) and had home health, [employer], etc at home. Her benefits ran out and the aides stopped coming. She sat in a chair for
six days without ever getting out -> [facility] admit with bedsores and infection. Then NH. Then here
- I suspect she will need NH placement permanently, 07/08 says that she [place] and would [place] move there
Subjective:
SOB and edema better.
TTE:
Left ventricle is moderately dilated.Moderately reduced left ventricular systolic function.Global hypokinesis.Left ventricular ejection fraction is 30-35%
Moderate-severe mitral regurgitation.
Mild to moderate tricuspid regurgitation. Estimated pulmonary artery pressure of 39 mmHg is moderately elevated.
Laboratory Data
07/03/23 07/07/23
04:55 05:45
Hgb 7.8 L 7.5 L
Creatinine 0.5 L 0.5 L
Selected Entries
06/28/23
20:09 06/28/23
20:10 07/03/23
03:15
Actual Weight 285 lb 4.45 oz 285 lb 4.45 oz 287 lb 0.67 oz
07/07/23
06:00
Actual Weight 283 lb 8 oz
Generic Name Dose Route Start Last Admin
Trade Name Freq PRN Reason Stop Dose Admin
Atorvastatin Calcium 40 mg 06/29/23 01:16
Atorvastatin (Lipitor) 40 Mg Tablet PO 07/27/23 01:15
HS STEFFEN
Atorvastatin Calcium 40 mg 06/29/23 01:16
Atorvastatin (Lipitor) 40 Mg Tablet PO 07/27/23 01:15
HS STEFFEN
Furosemide 40 mg 07/06/23 11:00
Furosemide 40 Mg (10 Mg/Ml) 4 Ml Vial IV 08/03/23 10:59
DAILY STEFFEN
Physical Exam
Vital Signs/Labs
Vital Signs
Temp Pulse Resp BP Pulse Ox
97.8 F 89 18 118/79 95
07/12/23 07:30 07/12/23 08:02 07/12/23 07:30 07/12/23 08:02 07/12/23 07:30
07/11/23 07/12/23 07/13/23
06:59 06:59 06:59
Actual Weight 126.552 kg 122.612 kg
07/12/23 05:21
07/12/23 05:21
PT 16.9 Sec (11.4-14.6) H 06/28/23 19:19
INR 1.34 06/28/23 19:19
APTT 36.2 Sec (23.4-35.0) H 06/28/23 19:19
Magnesium 1.4 mg/dl (1.6-2.3) L 06/29/23 03:52
Free T4 0.90 ng/dl (0.78-2.19) 06/30/23 11:43
06/29/23
03:52
Ayr-N-Quztnsykitc Pept 7100
Physical Exam
Constitutional: No acute distress and Comfortable
EENT: Moist mucous membranes
Cardiovascular: Rhythm & rate is regular, Systolic murmur absent, Pedal edema present and JVD present
Respiratory: Respiratory effort normal, Lungs clear to auscul. and Wheeze Absent
GI: Soft, Distention absent and Flat
Neuro/Psych: AO x 3
Data Reviewed
-
Date of Service: July 12, 2023
EKG: Other (Tele: SR 70s)
Echo: Other
Labs: Labs Reviewed by me
[2023-07-12 10:01] LABS: Albumin 2.9 g/dl (3.5-5.0)
[2023-07-12 11:18] VITALS: BP 110/59
[2023-07-12 11:32] LABS: Glucose - Point of Care 124 mg/dl (70-99)
--- NOTE | 2023-07-12 12:22 | CM ---
Patient to return to senior living when stable. Plan is for [facility], patient will need updated PT notes closer to discharge in order to obtain Auth.
Plan; Skilled placement at [facility].
--- NOTE | 2023-07-12 12:42 | W.PN.HOSP.TC ---
Today's Communication/Plan
-
Monitor vitals
See plan
Continue with IV Lasix
Assessment / Plan
Assessment / Plan
Suspected septic shock
�- Multiple potential sources including pulmonary (L base pneumonia), (CAUTI), Skin (sacral decub)
Suspect some toxic metabolic encephalopathy secondary to above
generally improved, but as per pt not back to baseline
was on levophed; now off
�-completed 7 days of meropenem per ID. observe off abx.
Evaluated by neurology who does not think the fevers are from phenytoin
follow fever curve - afebrile since 06/30
�- Obtain records from [facility] to shed light on recent hospitalization, multiple calls but still waiting on records from [facility]. per [place] records,not much helpful
�-hip x-rays were ordered however patient refused
ammonia wnl; normal CK
Mentation is better today. she is more conversant and answering questions
LLL Pneumonia
Acute on Chronic Hypoxemic Respiratory Failure; on 3 L chronic o2
currently on 2 L/M SaO2 97%
COPD with possible Acute Exacerbation
started standing and prn nebs; cw IV decadron, decreased further to 4 mg q12 hr, will continue to taper
�- CXR with possible L base pneumonia and small effusion. + procal 1.85
�- IV abx completed per ID.
Suspect acute on chronic Anemia of Chronic Disease
some acute on chronic blood loss anemia from sacral decub
Hemoglobin 6.6 on 07/01, s/p 1 unit PRBC 07/01
�- Unknown baseline.� Follow-up recent records from [facility] for comparison.
acute systolic HF.
per patient unknown if hx of CHF; unknown EF
used to be on lasix but now stopped
Echo 06/29 with EF 30-35%; global hypokinesis; cardiology following
IV lasix given 07/02. periods of hypotension so monitor closely. additional dose 07/05 of IV lasix.
cw IV lasix 40 mg bid
Cardio believes approaching euvolemia
heart burn
maalox; PPI
Mild troponin elevation likely non-[place] related
Monitor
Chronic Indwelling Mota Catheter
CAUTI
�- UA consistent with infection.� IV abx as noted above.
�- Urine cx was neg
�- Mota exchanged in the ED
Hyponatremia
Monitor
Hypomagnesemia
Monitor
Leukopenia
Monitor
Avascular Necrosis of the Right Hip
�- Unclear chronicity of this condition.� Patient complains of pain at present and surrounding induration / increased warmth in tissues overlying the hip.
�xrays were ordered however patient refused
per daughter; orthopedics at [facility] has refused surgery until patient loses weight.
Suspect severe anxiety
ativan prn
Abnormal LFTs
monitor
Seizure Disorder
�- Unknown history, most recent seizure, etc.
�- Continue phenytoin and follow for any breakthrough seizures.
Hypocalcemia/Hypoalbuminemia
Alb 2.5/Ca 6.9
will supplement
IV Calcium given 07/09 Ca on 07/10 6.6--2 gms -->07/11-6.3--4gms Ca ordered
will consult Renal
Benign Hypertension
DM-II
�- Patient has both listed diagnoses, but on no medications for either.
�- Follow BP / glucose.
�- Cover with SSI as needed.� A1C 5.2
Stage 3 large PI to L buttock extending down to Ischium, small hermosillo eschar, R buttock with small stage 2 PI. R thigh with stage 3 PI
wound care
Chronic Pain Syndrome
Chronic Opioid Dependence
Chronic Bed-Bound Status
�- Continue usual BID morphine; decreased dose. increased gabapentin,started standing tylenol
�- Continue oxycodone PRN - but at decreased dosing.
�- PT / OT evaluations.
�-Suspected bedbound status secondary to avascular necrosis of right hip. per patient its her right hip that she needs surgery which orthopedics at [facility] refused at this time and wants patient to lose weight before
Spoke with daughter in length 06/30 and she also thinks patient has been overly medicated due to her pain medications and this has been sent before by different physicians. I decreased her morphine dose this hospitalization.
Morbid Obesity due to excess calories / immobility
�- Affects all aspects of care.
�- This bed-bound 62y F will not be able to effect significant changes in diet or exercise to realize significant weight loss.
DVT Prophylaxis:� Lovenox
Code Status:� Full
General: Well Developed, Well Nourished and No Apparent Distress
HEENT: Normocephalic, Atraumatic and Moist Mucous Membranes
Respiratory: Clear to Auscultation; Negative Wheezes, Rales or Rhonchi
Cardiac: Regular Rhythm and S1/S2
GI: Soft, Nontender and Nondistended
Musculoskeletal: No Clubbing, No Cyanosis and No Edema
Skin: Ulcers (lt buttock decubitus)
Neuro: Awake and Alert
Anticipated Discharge: Within 24 hours
Subjective/Interval History
-
Date of Service: July 12, 2023
has some pain
Objective Data
-
Labs:
Laboratory Results
07/12/23
05:21
WBC 6.0
Hgb 8.2 L
Hct 26.4 L
Plt Count 218 D
Sodium 137
Potassium 3.6
Chloride 105
Carbon Dioxide 31 H
BUN 15
Creatinine 0.6
Glucose 113 H
Calcium 7.4 L
Vital Signs:
Vital Signs
Temp Pulse Resp BP Pulse Ox
97.9 F 66 18 110/59 99
07/12/23 11:18 07/12/23 11:18 07/12/23 11:18 07/12/23 11:18 07/12/23 11:18
I&O
07/11/23 07/12/23 07/13/23
06:59 06:59 06:59
Intake Total 1620 / 1620 1880 / 1880
Output Total 1999 6400 / 6400
Balance -380 / -380 -4520 / -4520
[2023-07-12] MEDS: ROXICODONE 10 MG PO (14:26)
[2023-07-12] MEDS: SANTYL OINTMENT 1 APPLIC TOPICAL (14:27)
--- NOTE | 2023-07-12 15:21 | CON.MD ---
Consultation - Medical
-
Assessment
-recent PNA/sepsis, completed Abx
-hyponatremia resolved
-hypocalcemia
-HFrEF 30% with sev MR, mod TR/PHTN
-anemia
-chronic olivares
-AVN right hip
-seizure disorder
-chronic pain
-decubitus ulcer
Plan
-suspect hypocalcemia mediated by diuresis and hypomag
-recheck mag
-check iPTH, phos
-IV calcium given yesterday with improvement
[id number]
[2023-07-12 15:55] VITALS: BP 119/62
[2023-07-12 16:00] LABS: Magnesium 1.1 mg/dl (1.6-2.3); Phosphorus 5.6 mg/dl (2.5-4.5)
[2023-07-12 16:35] LABS: Vitamin D, 25-OH*** < 12.8 ng/mL (30-80)
[2023-07-12 16:39] LABS: Glucose - Point of Care 121 mg/dl (70-99)
[2023-07-12] MEDS: LOVENOX 40 MG SC (18:14)
[2023-07-12] MEDS: COREG PO (19:36)
[2023-07-12] MEDS: LIPITOR 40 MG PO (20:37)
[2023-07-12] MEDS: XOPENEX 1.25 MG INHALANT SOLUTION INH (21:18)
[2023-07-12 21:36] LABS: Glucose - Point of Care 130 mg/dl (70-99)
[2023-07-12 23:32] VITALS: BP 140/67
[2023-07-13] MEDS: ATIVAN 0.5 MG PO ×3 (00:32→20:31)
[2023-07-13] MEDS: DILAUDID 0.5 MG IV ×5 (00:33→20:17)
[2023-07-13 06:00] VITALS: BMI 38.2
[2023-07-13 07:15] LABS: Blood Urea Nitrogen 17 mg/dl (7-17); Calcium 7.5 mg/dl (8.4-10.2); Carbon Dioxide 27 mmol/L (22-30); Chloride 102 mmol/L (98-107); Estimated Creatinine Clearance > 125 ml/min; Glucose 102 mg/dl (70-99); Potassium 3.6 mmol/L (3.5-5.1); Sodium 139 mmol/L (135-145); eGFR > 60.00
[2023-07-13 07:40] VITALS: BP 103/59
[2023-07-13 07:43] LABS: Glucose - Point of Care 111 mg/dl (70-99)
--- NOTE | 2023-07-13 08:02 | W.PN.CD ---
Today's Communication / Plan
-
-
stop IV lasix and start lasix 40mg po once per day (if ok w Nephrology)
recheck echo to assess LVEF post-sepsis
cont w carvedilol
start entresto
Impression / Plan
-
Assessment/Plan: 62 y/o female with emphysema/COPD, hx seizure on meds, anemia, remote hx [place] per patient (no stents also per patient, details not clear), CHF (type and details unknown), chronic Mota, ambulatory dysfunction, obesity, cigarette use,
daily ETOH who presented from [place] for fever (106.1) and altered mental status, as well as sats 86%. She is being treated for possible sepsis (improving/resolved) related to PNA, CAUTI, and decub ulcer .
Sepsis: improved/resolving
Cardiomyopathy EF 30-35% - with acute systolic HF, severe
-patient reports history of CHF, details unknown, doesn't see cardiology as OP but only in hospitals -> despite multiple calls we weren't able to get [place] records. We do have [place] records that shows HF meds but no report of LVEF or valves.
-GDMT limited (BB/ACEI/ARB/ARNI/MRA) due to hypotension (required Levophed this admission) and suspected UTI (SGLT2)
-BP is better: she is tolerating coreg 3.125mg bid
-case mgmt consult for entresto 24/26mg bid, seems ok as she is going to SNF
-stop lasix 40mg IV bid, switch to lasix 40mg po daily if ok w nephrology
Moderate to severe MR - unknown chronicity
- diuresis as above
- will repeat echo today(wed)
Abnormal troponin: non-ischemic myocardial injury in setting of acute illness
ETOH use:
-patient reports 1-2 vodka drinks daily
-recommended total cessation
COPD:
-improved
-on O2
-still smokes 1-2 cigs per day, recommended total cessation
Indigestion: improved with Tums, Maalox, Protonix.
Dispo
- back to SNF
Subjective:
SOB and edema better.
TTE:
Left ventricle is moderately dilated.Moderately reduced left ventricular systolic function.Global hypokinesis.Left ventricular ejection fraction is 30-35%
Moderate-severe mitral regurgitation.
Mild to moderate tricuspid regurgitation. Estimated pulmonary artery pressure of 39 mmHg is moderately elevated.
Laboratory Data
07/03/23 07/07/23
04:55 05:45
Hgb 7.8 L 7.5 L
Creatinine 0.5 L 0.5 L
Selected Entries
06/28/23
20:09 06/28/23
20:10 07/03/23
03:15
Actual Weight 285 lb 4.45 oz 285 lb 4.45 oz 287 lb 0.67 oz
07/07/23
06:00
Actual Weight 283 lb 8 oz
Generic Name Dose Route Start Last Admin
Trade Name Freq PRN Reason Stop Dose Admin
Atorvastatin Calcium 40 mg 06/29/23 01:16
Atorvastatin (Lipitor) 40 Mg Tablet PO 07/27/23 01:15
HS STEFFEN
Atorvastatin Calcium 40 mg 06/29/23 01:16
Atorvastatin (Lipitor) 40 Mg Tablet PO 07/27/23 01:15
HS STEFFEN
Furosemide 40 mg 07/06/23 11:00
Furosemide 40 Mg (10 Mg/Ml) 4 Ml Vial IV 08/03/23 10:59
DAILY STEFFEN
Physical Exam
Vital Signs/Labs
Vital Signs
Temp Pulse Resp BP Pulse Ox
97.9 F 86 18 140/67 98
07/12/23 23:32 07/12/23 23:32 07/12/23 23:32 07/12/23 23:32 07/12/23 23:32
07/12/23 07/13/23 07/14/23
06:59 06:59 06:59
Actual Weight 270 lb 5 oz 266 lb 7 oz
07/12/23 05:21
07/13/23 06:00
PT 16.9 Sec (11.4-14.6) H 06/28/23 19:19
INR 1.34 06/28/23 19:19
APTT 36.2 Sec (23.4-35.0) H 06/28/23 19:19
Magnesium Cancelled 07/12/23 15:24
Free T4 0.90 ng/dl (0.78-2.19) 06/30/23 11:43
06/29/23
03:52
Agn-D-Ttoqbrqxqnx Pept 7100
Physical Exam
Constitutional: Comfortable
Cardiovascular: Rhythm & rate is regular and Pedal edema is absent
Respiratory: Respiratory effort normal, Wheeze Present and Crackles Present
Data Reviewed
-
Date of Service: July 13, 2023
EKG: Tracing Personally Visualized and interpreted
Medical Tests (PFT, Pathology etc): Report Reviewed by me
Labs: Labs Reviewed by me
[2023-07-13] MEDS: NOVOLOG FLEXPEN-LOW RESISTANCE SC ×3 (08:31→16:48)
[2023-07-13] MEDS: TYLENOL 1000 MG PO ×3 (08:32→21:33)
[2023-07-13] MEDS: DILANTIN 200 MG PO (08:33)
[2023-07-13] MEDS: MUCINEX 1200 MG PO ×2 (08:33→20:15)
[2023-07-13] MEDS: NEURONTIN 900 MG PO ×3 (08:33→21:33)
[2023-07-13] MEDS: SENOKOT-S 1 TABLET PO (08:33)
[2023-07-13] MEDS: ZOLOFT 100 MG PO (08:33)
[2023-07-13] MEDS: COREG 3.125 MG PO ×2 (08:34→20:16)
[2023-07-13] MEDS: MS CONTIN (EXTENDED RELEASE) 15 MG PO (08:34)
[2023-07-13] MEDS: FOLVITE 1 MG PO (08:34)
[2023-07-13] MEDS: PROTONIX 40 MG PO (08:34)
[2023-07-13] MEDS: DECADRON 2 MG IV ×2 (08:34→20:16)
[2023-07-13] MEDS: SANTYL OINTMENT 1 APPLIC TOPICAL (08:35)
[2023-07-13] MEDS: ENTRESTO 24 MG/26 MG 1 TAB PO ×2 (09:42→20:16)
[2023-07-13] MEDS: LASIX 40 MG PO (09:42)
[2023-07-13] MEDS: LASIX IV (09:42)
[2023-07-13 10:33] LABS: Intact PTH 93.9 pg/ml (13.6-85.8)
--- NOTE | 2023-07-13 10:44 | CM ---
Addendum entered by Felicity Dunn 07/13/23 13:24:
Plan is to return to [facility] when stable, pending reference number [id number], clinical faxed to [phone].
Original Note:
Chart reviewed and patient is getting close to discharge. media marketing manager reached out to physical therapy for possible updated evaluation today, per admissions at [facility] they need Auth for skilled. media marketing manager will request Auth for [facility],
medical management at PT.
[facility]

Dr Boswell [phone]
Plan; media marketing manager to wait on updates from PT and then submit Auth to insurance.
--- NOTE | 2023-07-13 12:10 | W.PN.NEPH.PH ---
Today's Communication / Plan
-
Mg
Assessment/Plan
-
Assessment
-recent PNA/sepsis, completed Abx
-hyponatremia resolved
-hypocalcemia
-HFrEF 30% with sev MR, mod TR/PHTN
-anemia
-chronic olivares
-AVN right hip
-seizure disorder
-chronic pain
-decubitus ulcer
Plan
-replete Mag IV
-vitamin D with ergo daily in house, then weekly on dc
-follow BMP
-could give po mag and follow as OP if desired
-
-
Date of Service: July 13, 2023
CC / HPI / ROS
-
Chief Complaint:
hypocalcemia
History of Present Illness:
Mag low 1.1
Calcium low 7.5
BP stable
vit D deficient
Review of Systems:
no CP/SOB
Labs
-
Labs:
WBC 6.0 10^3/uL (4.8-10.8) 07/12/23 05:21
RBC 2.79 10^6/uL (4.20-5.40) L 07/12/23 05:21
Hgb 8.2 g/dL (12.0-16.0) L 07/12/23 05:21
Hct 26.4 % (37.0-47.0) L 07/12/23 05:21
Plt Count 218 10^3/uL (130-400) D 07/12/23 05:21
Sodium 139 mmol/L (135-145) 07/13/23 06:00
Potassium 3.6 mmol/L (3.5-5.1) 07/13/23 06:00
Chloride 102 mmol/L (98-107) 07/13/23 06:00
Carbon Dioxide 27 mmol/L (22-30) 07/13/23 06:00
BUN 17 mg/dl (7-17) 07/13/23 06:00
Creatinine 0.6 mg/dL (0.6-1.0) 07/13/23 06:00
eGFR > 60.00 07/13/23 06:00
Glucose 102 mg/dl (70-99) H 07/13/23 06:00
Calcium 7.5 mg/dl (8.4-10.2) L 07/13/23 06:00
Phosphorus Cancelled 07/12/23 15:24
Yeu-N-Bomrqlsbclh Pept 7100 pg/ml 06/29/23 03:52
Albumin Cancelled 07/12/23 08:28
Physical Exam
-
Vital Signs:
Vital Signs
Temp Pulse Resp BP Pulse Ox
97.7 F 74 16 103/59 98
07/13/23 07:40 07/13/23 08:34 07/13/23 07:40 07/13/23 08:34 07/13/23 07:40
Cardiovascular:: Regular rate and rhythm
Respiratory:: Bilateral: Coarse
Lung Excursion:: Normal
Abdomen:: Nontender and Soft
Bowel Sounds:: Normal
Extremity Edema:: None: Bilateral:
[2023-07-13 12:21] LABS: Glucose - Point of Care 127 mg/dl (70-99)
--- NOTE | 2023-07-13 13:22 | W.PN.HOSP.TC ---
Today's Communication/Plan
-
monitor vitals
see plan
lasix
replete mag
vit D
dc planning
Assessment / Plan
Assessment / Plan
Suspected septic shock
�- Multiple potential sources including pulmonary (L base pneumonia), (CAUTI), Skin (sacral decub)
Suspect some toxic metabolic encephalopathy secondary to above
generally improved, but as per pt not back to baseline
was on levophed; now off
�-completed 7 days of meropenem per ID. observe off abx.
Evaluated by neurology who does not think the fevers are from phenytoin
follow fever curve - afebrile since 06/30
�- Obtain records from [facility] to shed light on recent hospitalization, multiple calls but still waiting on records from [facility]. per ID records,not much helpful
�-hip x-rays were ordered however patient refused
ammonia wnl; normal CK
Mentation is better today. she is more conversant and answering questions
LLL Pneumonia
Acute on Chronic Hypoxemic Respiratory Failure; on 3 L chronic o2
currently on 2 L/M SaO2 97%
COPD with possible Acute Exacerbation
started standing and prn nebs; cw IV decadron, decreased further to 4 mg q12 hr, will continue to taper
�- CXR with possible L base pneumonia and small effusion. + procal 1.85
�- IV abx completed per ID.
Suspect acute on chronic Anemia of Chronic Disease
some acute on chronic blood loss anemia from sacral decub
Hemoglobin 6.6 on 07/01, s/p 1 unit PRBC 07/01
�- Unknown baseline.� Follow-up recent records from [facility] for comparison.
acute systolic HF.
per patient unknown if hx of CHF; unknown EF
used to be on lasix but now stopped
Echo 06/29 with EF 30-35%; global hypokinesis; cardiology following
IV lasix given 07/02. periods of hypotension so monitor closely. additional dose 07/05 of IV lasix.
Now Lasix changed to oral
Cardio believes approaching euvolemia
Hypocalcemia
Vitamin D deficiency, now on vitamin D
Hypomagnesemia
Replete
heart burn
maalox; PPI
Mild troponin elevation likely non-[place] related
Monitor
Chronic Indwelling Mota Catheter
CAUTI
�- UA consistent with infection.� IV abx as noted above.
�- Urine cx was neg
�- Mota exchanged in the ED
Hyponatremia
Monitor
Leukopenia
Monitor
Avascular Necrosis of the Right Hip
�- Unclear chronicity of this condition.� Patient complains of pain at present and surrounding induration / increased warmth in tissues overlying the hip.
�xrays were ordered however patient refused
per daughter; orthopedics at [facility] has refused surgery until patient loses weight.
Suspect severe anxiety
ativan prn
Abnormal LFTs
monitor
Seizure Disorder
�- Unknown history, most recent seizure, etc.
�- Continue phenytoin and follow for any breakthrough seizures.
Hypocalcemia/Hypoalbuminemia
nephro following
Benign Hypertension
DM-II
�- Patient has both listed diagnoses, but on no medications for either.
�- Follow BP / glucose.
�- Cover with SSI as needed.� A1C 5.2
Stage 3 large PI to L buttock extending down to Ischium, small hermosillo eschar, R buttock with small stage 2 PI. R thigh with stage 3 PI
wound care
Chronic Pain Syndrome
Chronic Opioid Dependence
Chronic Bed-Bound Status
�- Continue usual BID morphine; decreased dose. increased gabapentin,started standing tylenol
�- Continue oxycodone PRN - but at decreased dosing.
�- PT / OT evaluations.
�-Suspected bedbound status secondary to avascular necrosis of right hip. per patient its her right hip that she needs surgery which orthopedics at [facility] refused at this time and wants patient to lose weight before
Spoke with daughter in length 06/30 and she also thinks patient has been overly medicated due to her pain medications and this has been sent before by different physicians. I decreased her morphine dose this hospitalization.
Morbid Obesity due to excess calories / immobility
�- Affects all aspects of care.
�- This bed-bound 62y F will not be able to effect significant changes in diet or exercise to realize significant weight loss.
DVT Prophylaxis:� Lovenox
Code Status:� Full
General: Well Developed, Well Nourished and No Apparent Distress
HEENT: Normocephalic, Atraumatic and Moist Mucous Membranes
Respiratory: Clear to Auscultation; Negative Wheezes, Rales or Rhonchi
Cardiac: Regular Rhythm and S1/S2
GI: Soft, Nontender and Nondistended
Musculoskeletal: No Clubbing, No Cyanosis and No Edema
Skin: Ulcers (lt buttock decubitus)
Neuro: Awake and Alert
Anticipated Discharge: Within 24 hours
Subjective/Interval History
-
Date of Service: July 13, 2023
no fever
Objective Data
-
Labs:
Laboratory Results
07/13/23
06:00
Sodium 139
Potassium 3.6
Chloride 102
Carbon Dioxide 27
BUN 17
Creatinine 0.6
Glucose 102 H
Calcium 7.5 L
Vital Signs:
Vital Signs
Temp Pulse Resp BP Pulse Ox
97.7 F 74 16 103/59 98
07/13/23 07:40 07/13/23 08:34 07/13/23 07:40 07/13/23 08:34 07/13/23 07:40
I&O
07/12/23 07/13/23 07/14/23
06:59 06:59 06:59
Intake Total 1879 / 0 1979 / 1979
Output Total 6400 / 6400 4925 / 4925
Balance -4520 / -4520 -6795 / -3957
[2023-07-13] MEDS: DRISDOL (VITAMIN D2) 50000 UNITS PO (14:56)
[2023-07-13] MEDS: MAGNESIUM SULFATE 100 IV (14:57)
--- NOTE | 2023-07-13 15:30 | WOUNDNOTE ---
BUTTOCKS AND POSTERIOR THIGHS
--- NOTE | 2023-07-13 15:31 | WOUNDNOTE ---
R POSTERIOR THIGH AND HIP
[2023-07-13 15:35] VITALS: BP 114/59
--- NOTE | 2023-07-13 15:36 | WOUNDNOTE ---
CADE RN NOTE: Followed up with patient, pct assisted. Patient remains on air mattress, heels intact, foams in use and pillows under calves. L buttock wound much rack cleaner and smaller in size. L posterior thigh with slough at base, recommend Santyl to
wound then adaptic and dry dressing daily, silicone foam applied. R buttock wounds have closed, scar and scabbing in place. R posterior thigh with few partial thickness openings suspect from patient constantly itching area, silicone foam changed.
Instructed patient again not to itch area. Repositioned patient and then updated nurse Lee on the above. Will confirm orders with hospitalist and follow weekly as needed.
[2023-07-13 16:39] LABS: Glucose - Point of Care 114 mg/dl (70-99)
[2023-07-13] MEDS: LOVENOX 40 MG SC (17:00)
[2023-07-13] MEDS: ROXICODONE 10 MG PO (18:08)
[2023-07-13] MEDS: XOPENEX 1.25 MG INHALANT SOLUTION INH (19:56)
[2023-07-13] MEDS: ATROVENT NEBULES 0.5 MG INH (19:56)
[2023-07-13] MEDS: SENOKOT-S PO (20:15)
[2023-07-13] MEDS: LIPITOR 40 MG PO (21:33)
[2023-07-13 21:58] LABS: Glucose - Point of Care 192 mg/dl (70-99)
[2023-07-13] MEDS: NOVOLOG FLEXPEN 2 UNITS SC (22:39)
[2023-07-13 23:33] VITALS: BP 93/47
[2023-07-14] MEDS: DILAUDID 0.5 MG IV ×6 (00:17→20:58)
[2023-07-14] MEDS: ROXICODONE 10 MG PO (03:39)
[2023-07-14 06:00] VITALS: BMI 38.8
[2023-07-14 06:18] LABS: Blood Urea Nitrogen 16 mg/dl (7-17); Calcium 7.7 mg/dl (8.4-10.2); Carbon Dioxide 26 mmol/L (22-30); Chloride 103 mmol/L (98-107); Estimated Creatinine Clearance > 125 ml/min; Glucose 117 mg/dl (70-99); Potassium 3.5 mmol/L (3.5-5.1); Sodium 136 mmol/L (135-145); eGFR > 60.00
[2023-07-14 07:40] VITALS: BP 109/58
--- NOTE | 2023-07-14 07:54 | W.PN.CD ---
Today's Communication / Plan
-
-
cont w curent meds
1500 cc fluid restric
needs renal labs in 10-14 days; may need meds reduced
hopefully lifestyle changes are successful
-
we will sign off
cardiol followup (Dr Del Castillo) in 4-6 weeks unless she prefers followup closer to her home
Impression / Plan
-
Assessment/Plan: 62 y/o female with emphysema/COPD, hx seizure on meds, anemia, remote hx [place] per patient (no stents also per patient, details not clear), CHF (type and details unknown), chronic Mota, ambulatory dysfunction, obesity, cigarette use,
daily ETOH who presented from [facility] for fever (106.1) and altered mental status, as well as sats 86%. She is being treated for possible sepsis (improving/resolved) related to PNA, CAUTI, and decub ulcer .
Sepsis: improved/resolving
Cardiomyopathy EF 30-35% - with acute systolic HF, severe
Followup echo 07/13/23 EF is 65%
-patient reports history of CHF, details unknown, doesn't see cardiology as OP but only in hospitals -> despite multiple calls we weren't able to get [facility] records. We do have [facility] records that shows HF meds but no report of LVEF or valves.
-GDMT limited was initially limited due to sepsis, but now tolerating
-BP is better: she is tolerating coreg 3.125mg bid and entresto, and po lasix
- she will cont on these meds - needs renal labs in 10-14 days and med changes PRN
Moderate to severe MR - unknown chronicity
- improved on recent echo 07/13/23; mild-mod MR
Abnormal troponin: non-ischemic myocardial injury in setting of acute illness
ETOH use:
-patient reports 1-2 vodka drinks daily
-recommended total cessation
COPD:
-improved
-on O2
-still smokes 1-2 cigs per day, recommended total cessation
Indigestion: improved with Tums, Maalox, Protonix.
Dispo
- back to SNF
Subjective:
SOB and edema better.
TTE:
Left ventricle is moderately dilated.Moderately reduced left ventricular systolic function.Global hypokinesis.Left ventricular ejection fraction is 30-35%
Moderate-severe mitral regurgitation.
Mild to moderate tricuspid regurgitation. Estimated pulmonary artery pressure of 39 mmHg is moderately elevated.
Laboratory Data
07/03/23 07/07/23
04:55 05:45
Hgb 7.8 L 7.5 L
Creatinine 0.5 L 0.5 L
Selected Entries
06/28/23
20:09 06/28/23
20:10 07/03/23
03:15
Actual Weight 285 lb 4.45 oz 285 lb 4.45 oz 287 lb 0.67 oz
07/07/23
06:00
Actual Weight 283 lb 8 oz
Generic Name Dose Route Start Last Admin
Trade Name Freq PRN Reason Stop Dose Admin
Atorvastatin Calcium 40 mg 06/29/23 01:16
Atorvastatin (Lipitor) 40 Mg Tablet PO 07/27/23 01:15
HS STEFFEN
Atorvastatin Calcium 40 mg 06/29/23 01:16
Atorvastatin (Lipitor) 40 Mg Tablet PO 07/27/23 01:15
HS STEFFEN
Furosemide 40 mg 07/06/23 11:00
Furosemide 40 Mg (10 Mg/Ml) 4 Ml Vial IV 08/03/23 10:59
DAILY STEFFEN
Physical Exam
Vital Signs/Labs
Vital Signs
Temp Pulse Resp BP Pulse Ox
97.8 F 62 18 93/47 98
07/13/23 23:33 07/13/23 23:33 07/13/23 23:33 07/13/23 23:33 07/13/23 23:43
07/13/23 07/14/23 07/15/23
06:59 06:59 06:59
Actual Weight 266 lb 7 oz 270 lb 8.115 oz
07/12/23 05:21
07/14/23 05:28
PT 16.9 Sec (11.4-14.6) H 06/28/23 19:19
INR 1.34 06/28/23 19:19
APTT 36.2 Sec (23.4-35.0) H 06/28/23 19:19
Magnesium Cancelled 07/12/23 15:24
Free T4 0.90 ng/dl (0.78-2.19) 06/30/23 11:43
06/29/23
03:52
Wfn-C-Pjalctowwko Pept 7100
Physical Exam
Cardiovascular: Rhythm & rate is regular and Pedal edema is absent
Respiratory: Respiratory effort normal and Lungs clear to auscul.
Data Reviewed
-
Date of Service: July 14, 2023
Echo: Report Reviewed by me
Medical Tests (PFT, Pathology etc): Discussed with Patient
Labs: Labs Reviewed by me
[2023-07-14 07:58] LABS: Glucose - Point of Care 191 mg/dl (70-99)
[2023-07-14] MEDS: NOVOLOG FLEXPEN-LOW RESISTANCE 1 UNITS SC ×2 (08:16→16:57)
[2023-07-14] MEDS: TYLENOL 1000 MG PO ×3 (08:33→20:57)
[2023-07-14] MEDS: ZOLOFT 100 MG PO (08:34)
[2023-07-14] MEDS: NEURONTIN 900 MG PO ×3 (08:34→20:57)
--- NOTE | 2023-07-14 10:02 | CM ---
Addendum entered by Felicity Dunn 07/14/23 16:26:
Per physician advisor insurance has approved skilled, however [facility] will need a single case agreement from insurance to accept patient.
Original Note:
truck sales manager reviewed patient's chart and faxed over request for skilled placement, insurance is requesting a peer to peer [phone], option 5, physician made aware. Per admissions at [facility] they do not have a bed for patient. Case
wind power project manager requested that they review patient for one of their other facilities, [facility], and [place]. [facility] does not have a contract with patient's insurance. truck sales manager may need to make new referrals on patient.
Plan; Peer to peer is pending wait on final outcome on decision from [facility] admissions, accepting patient back or one of their alternative facilities accepting patient.
[2023-07-14 10:47] VITALS: BP 108/59
[2023-07-14] MEDS: DRISDOL (VITAMIN D2) 50000 UNITS PO (10:49)
[2023-07-14] MEDS: MUCINEX 1200 MG PO ×2 (10:49→19:45)
[2023-07-14] MEDS: DILANTIN 200 MG PO (10:49)
[2023-07-14] MEDS: LASIX 40 MG PO (10:50)
[2023-07-14] MEDS: ENTRESTO 24 MG/26 MG 1 TAB PO ×2 (10:50→19:45)
[2023-07-14] MEDS: PROTONIX 40 MG PO (10:50)
[2023-07-14] MEDS: FOLVITE 1 MG PO (10:50)
[2023-07-14] MEDS: DECADRON 2 MG IV (10:51)
[2023-07-14] MEDS: COREG 3.125 MG PO (10:51)
[2023-07-14] MEDS: SENOKOT-S PO ×2 (10:52→19:44)
[2023-07-14 11:07] LABS: Glucose - Point of Care 103 mg/dl (70-99)
[2023-07-14] MEDS: NOVOLOG FLEXPEN-LOW RESISTANCE SC (11:09)
[2023-07-14] MEDS: SANTYL OINTMENT 1 APPLIC TOPICAL (12:07)
[2023-07-14] MEDS: ATIVAN 0.5 MG PO ×2 (12:07→21:00)
--- NOTE | 2023-07-14 12:12 | W.PN.HOSP.TC ---
Today's Communication/Plan
-
Monitor vital signs see plan
P.o. Lasix
Discharge planning
Switch Decadron to prednisone
Assessment / Plan
Assessment / Plan
Suspected septic shock
�- Multiple potential sources including pulmonary (L base pneumonia), (CAUTI), Skin (sacral decub)
Suspect some toxic metabolic encephalopathy secondary to above
generally improved, but as per pt not back to baseline
was on levophed; now off
�-completed 7 days of meropenem per ID. observe off abx.
Evaluated by neurology who does not think the fevers are from phenytoin
follow fever curve - afebrile since 06/30
�- Obtain records from [facility] to shed light on recent hospitalization, multiple calls but still waiting on records from [facility]. per [place] records,not much helpful
�-hip x-rays were ordered however patient refused
ammonia wnl; normal CK
Mentation is better today. she is more conversant and answering questions
LLL Pneumonia
Acute on Chronic Hypoxemic Respiratory Failure; on 3 L chronic o2
currently on 2 L/M SaO2 97%
COPD with possible Acute Exacerbation
started standing and prn nebs; switch Decadron to prednisone. Decrease by 10 every 3 days
�- CXR with possible L base pneumonia and small effusion. + procal 1.85
�- IV abx completed per ID.
Suspect acute on chronic Anemia of Chronic Disease
some acute on chronic blood loss anemia from sacral decub
Hemoglobin 6.6 on 07/01, s/p 1 unit PRBC 07/01
�- Unknown baseline.� Follow-up recent records from [facility] for comparison.
acute systolic HF.
per patient unknown if hx of CHF; unknown EF
used to be on lasix but now stopped
Echo 06/29 with EF 30-35%; global hypokinesis; cardiology following
IV lasix given 07/02. periods of hypotension so monitor closely. additional dose 07/05 of IV lasix.
Now Lasix changed to oral
now euvolemic; on coreg,entresto
Hypocalcemia
Vitamin D deficiency, now on vitamin D
Hypomagnesemia
Replete
heart burn
maalox; PPI
Mild troponin elevation likely non-[place] related
Monitor
Chronic Indwelling Mota Catheter
CAUTI
�- UA consistent with infection.� IV abx as noted above.
�- Urine cx was neg
�- Mota exchanged in the ED
Hyponatremia
Monitor
Leukopenia
Monitor
Avascular Necrosis of the Right Hip
�- Unclear chronicity of this condition.� Patient complains of pain at present and surrounding induration / increased warmth in tissues overlying the hip.
�xrays were ordered however patient refused
per daughter; orthopedics at [facility] has refused surgery until patient loses weight.
Suspect severe anxiety
ativan prn
Abnormal LFTs
Seizure Disorder
�- Unknown history, most recent seizure, etc.
�- Continue phenytoin and follow for any breakthrough seizures.
Hypocalcemia/Hypoalbuminemia
nephro following
Benign Hypertension
DM-II
�- Patient has both listed diagnoses, but on no medications for either.
�- Follow BP / glucose.
�- Cover with SSI as needed.� A1C 5.2
Stage 3 large PI to L buttock extending down to Ischium, small hermosillo eschar, R buttock with small stage 2 PI. R thigh with stage 3 PI
wound care
Chronic Pain Syndrome
Chronic Opioid Dependence
Chronic Bed-Bound Status
�- Continue usual BID morphine; decreased dose. increased gabapentin,started standing tylenol
�- Continue oxycodone PRN - but at decreased dosing.
�- PT / OT evaluations.
�-Suspected bedbound status secondary to avascular necrosis of right hip. per patient its her right hip that she needs surgery which orthopedics at [facility] refused at this time and wants patient to lose weight before
Spoke with daughter in length 06/30 and she also thinks patient has been overly medicated due to her pain medications and this has been sent before by different physicians. I decreased her morphine dose this hospitalization.
Morbid Obesity due to excess calories / immobility
�- Affects all aspects of care.
�- This bed-bound 62y F will not be able to effect significant changes in diet or exercise to realize significant weight loss.
DVT Prophylaxis:� Lovenox
Code Status:� Full
General: Well Developed, Well Nourished and No Apparent Distress
HEENT: Normocephalic, Atraumatic and Moist Mucous Membranes
Respiratory: Clear to Auscultation; Negative Wheezes, Rales or Rhonchi
Cardiac: Regular Rhythm and S1/S2
GI: Soft, Nontender and Nondistended
Musculoskeletal: No Clubbing, No Cyanosis and No Edema
Skin: Ulcers (lt buttock decubitus)
Neuro: Awake and Alert
Anticipated Discharge: Today
Subjective/Interval History
-
Date of Service: July 14, 2023
no acute events
Objective Data
-
Labs:
Laboratory Results
07/14/23
05:28
Sodium 136
Potassium 3.5
Chloride 103
Carbon Dioxide 26
BUN 16
Creatinine 0.6
Glucose 117 H
Calcium 7.7 L
Vital Signs:
Vital Signs
Temp Pulse Resp BP Pulse Ox
98.1 F 60 16 108/59 100
07/14/23 10:47 07/14/23 10:50 07/14/23 10:47 07/14/23 10:50 07/14/23 10:47
I&O
07/13/23 07/14/23 07/15/23
06:59 06:59 06:59
Intake Total 1979 / 1979 1740 / 1740
Output Total 4925 / 4925 2400 / 2400
Balance -2945 / -2945 -660 / -660
[2023-07-14 15:21] VITALS: BP 104/54
[2023-07-14] MEDS: XOPENEX 1.25 MG INHALANT SOLUTION INH ×2 (16:12→19:45)
--- NOTE | 2023-07-14 16:16 | W.PN.NEPH.PH ---
Today's Communication / Plan
-
cont vit D
check mg level
Assessment/Plan
-
Assessment
-recent PNA/sepsis, completed Abx
-hyponatremia resolved
-hypocalcemia
-HFrEF 30% with sev MR, mod TR/PHTN
-anemia
-chronic olivares
-AVN right hip
-seizure disorder
-chronic pain
-decubitus ulcer
Plan
hypocalcemia-multifactorial with low mg, low vit D
sallie is better now
-vitamin D with ergo daily in house, then weekly on dc
recheck mg and follow trend po mg if needed at d/c, note pt on PPI too
if persistent hypomag likely d/c PPI
po lasix per primary
follow labs
-
-
Date of Service: July 14, 2023
CC / HPI / ROS
-
Chief Complaint:
hypocalcemia
History of Present Illness:
Mag low 1.1, s/p IV mg, recheck pending
Calcium low 7.7 uncorrected
BP stable
vit D deficient
Review of Systems:
c/o mid chest tightness since it is time for neb
no n/v
Labs
-
Labs:
WBC 6.0 10^3/uL (4.8-10.8) 07/12/23 05:21
RBC 2.79 10^6/uL (4.20-5.40) L 07/12/23 05:21
Hgb 8.2 g/dL (12.0-16.0) L 07/12/23 05:21
Hct 26.4 % (37.0-47.0) L 07/12/23 05:21
Plt Count 218 10^3/uL (130-400) D 07/12/23 05:21
Sodium 136 mmol/L (135-145) 07/14/23 05:28
Potassium 3.5 mmol/L (3.5-5.1) 07/14/23 05:28
Chloride 103 mmol/L (98-107) 07/14/23 05:28
Carbon Dioxide 26 mmol/L (22-30) 07/14/23 05:28
BUN 16 mg/dl (7-17) 07/14/23 05:28
Creatinine 0.6 mg/dL (0.6-1.0) 07/14/23 05:28
eGFR > 60.00 07/14/23 05:28
Glucose 117 mg/dl (70-99) H 07/14/23 05:28
Calcium 7.7 mg/dl (8.4-10.2) L 07/14/23 05:28
Phosphorus Cancelled 07/12/23 15:24
Ahw-L-Oqzydtuzcwo Pept 7100 pg/ml 06/29/23 03:52
Albumin Cancelled 07/12/23 08:28
Physical Exam
-
Vital Signs:
Vital Signs
Temp Pulse Resp BP Pulse Ox
97.5 F 68 15 104/54 97
07/14/23 15:21 07/14/23 16:14 07/14/23 16:14 07/14/23 15:21 07/14/23 16:14
Cardiovascular:: Regular rate and rhythm
Respiratory:: Bilateral: Rales (at bases)
Lung Excursion:: Normal
Abdomen:: Nontender and Soft
Extremity Edema:: +1: Bilateral:
Olivares Catheter: No
[2023-07-14 16:45] LABS: Glucose - Point of Care 156 mg/dl (70-99)
[2023-07-14] MEDS: LOVENOX 40 MG SC (16:55)
[2023-07-14] MEDS: ATROVENT NEBULES 0.5 MG INH (19:48)
[2023-07-14] MEDS: COREG PO (19:49)
[2023-07-14] MEDS: LIPITOR 40 MG PO (20:57)
[2023-07-14 21:24] LABS: Glucose - Point of Care 121 mg/dl (70-99)
[2023-07-14 23:47] VITALS: BP 101/58
[2023-07-15] MEDS: DILAUDID 0.5 MG IV (03:51)
[2023-07-15 05:41] LABS: Blood Urea Nitrogen 13 mg/dl (7-17); Calcium 8.1 mg/dl (8.4-10.2); Carbon Dioxide 28 mmol/L (22-30); Chloride 108 mmol/L (98-107); Estimated Creatinine Clearance > 125 ml/min; Glucose 97 mg/dl (70-99); Potassium 3.8 mmol/L (3.5-5.1); Sodium 137 mmol/L (135-145); eGFR > 60.00
[2023-07-15 06:00] VITALS: BMI 38.4
[2023-07-15 07:30] VITALS: BP 110/71
[2023-07-15 07:56] LABS: Glucose - Point of Care 109 mg/dl (70-99)
[2023-07-15] MEDS: NOVOLOG FLEXPEN-LOW RESISTANCE SC ×2 (07:58→12:30)
[2023-07-15] MEDS: TYLENOL 1000 MG PO ×2 (09:57→15:56)
[2023-07-15] MEDS: DILANTIN 200 MG PO (09:57)
[2023-07-15] MEDS: NEURONTIN 900 MG PO ×2 (09:57→15:56)
[2023-07-15] MEDS: LASIX 40 MG PO (09:57)
[2023-07-15] MEDS: MS CONTIN (EXTENDED RELEASE) 15 MG PO (09:57)
[2023-07-15] MEDS: ENTRESTO 24 MG/26 MG 1 TAB PO (09:58)
[2023-07-15] MEDS: FOLVITE 1 MG PO (09:58)
[2023-07-15] MEDS: DRISDOL (VITAMIN D2) 50000 UNITS PO (09:58)
[2023-07-15] MEDS: DELTASONE 30 MG PO (09:58)
[2023-07-15] MEDS: COREG 3.125 MG PO (09:58)
[2023-07-15] MEDS: PROTONIX 40 MG PO (09:59)
[2023-07-15] MEDS: SENOKOT-S PO ×2 (09:59→10:01)
[2023-07-15] MEDS: ZOLOFT 100 MG PO (09:59)
[2023-07-15] MEDS: MUCINEX 1200 MG PO (09:59)
[2023-07-15] MEDS: XOPENEX 1.25 MG INHALANT SOLUTION INH ×2 (10:25→15:57)
--- NOTE | 2023-07-15 11:06 | W.PN.HOSP.TC ---
Addendum entered and electronically signed by Blaise Fierro MD 07/15/23 12:41:
Time of discharge 38 minutes
Original Note:
Today's Communication/Plan
-
Monitor vitals
See plan
Pain control
Discharge planning
Lasix
Assessment / Plan
Assessment / Plan
Suspected septic shock
�- Multiple potential sources including pulmonary (L base pneumonia), (CAUTI), Skin (sacral decub)
Suspect some toxic metabolic encephalopathy secondary to above
generally improved, but as per pt not back to baseline
was on levophed; now off
�-completed 7 days of meropenem per ID. observe off abx.
Evaluated by neurology who does not think the fevers are from phenytoin
follow fever curve - afebrile since 06/30
�- Obtain records from [facility] to shed light on recent hospitalization, multiple calls but still waiting on records from [facility]. per [place] records,not much helpful
�-hip x-rays were ordered however patient refused
ammonia wnl; normal CK
Mentation is better today. she is more conversant and answering questions
LLL Pneumonia
Acute on Chronic Hypoxemic Respiratory Failure; on 3 L chronic o2
currently on 2 L/M SaO2 97%
COPD with possible Acute Exacerbation
started standing and prn nebs; switch Decadron to prednisone. Decrease by 10 every 3 days
�- CXR with possible L base pneumonia and small effusion. + procal 1.85
�- IV abx completed per ID.
Suspect acute on chronic Anemia of Chronic Disease
some acute on chronic blood loss anemia from sacral decub
Hemoglobin 6.6 on 07/01, s/p 1 unit PRBC 07/01
�- Unknown baseline.� Follow-up recent records from [facility] for comparison.
acute systolic HF.
per patient unknown if hx of CHF; unknown EF
used to be on lasix but now stopped
Echo 06/29 with EF 30-35%; global hypokinesis; cardiology following
IV lasix given 07/02. periods of hypotension so monitor closely. additional dose 07/05 of IV lasix.
Now Lasix changed to oral
now euvolemic; on coreg,entresto
Hypocalcemia
Vitamin D deficiency, now on vitamin D
Hypomagnesemia
Replete
heart burn
maalox; PPI
Mild troponin elevation likely non-[place] related
Monitor
Chronic Indwelling Mota Catheter
CAUTI
�- UA consistent with infection.� IV abx as noted above.
�- Urine cx was neg
�- Mota exchanged in the ED
Hyponatremia
Monitor
Leukopenia
Monitor
Avascular Necrosis of the Right Hip
�- Unclear chronicity of this condition.� Patient complains of pain at present and surrounding induration / increased warmth in tissues overlying the hip.
�xrays were ordered however patient refused
per daughter; orthopedics at [facility] has refused surgery until patient loses weight.
Suspect severe anxiety
ativan prn
Abnormal LFTs
Seizure Disorder
�- Unknown history, most recent seizure, etc.
�- Continue phenytoin and follow for any breakthrough seizures.
Hypocalcemia/Hypoalbuminemia
nephro following
Benign Hypertension
DM-II
�- Patient has both listed diagnoses, but on no medications for either.
�- Follow BP / glucose.
�- Cover with SSI as needed.� A1C 5.2
Stage 3 large PI to L buttock extending down to Ischium, small hermosillo eschar, R buttock with small stage 2 PI. R thigh with stage 3 PI
wound care
Chronic Pain Syndrome
Chronic Opioid Dependence
Chronic Bed-Bound Status
�- Continue usual BID morphine; decreased dose. increased gabapentin,started standing tylenol
�- Continue oxycodone PRN - but at decreased dosing.
�- PT / OT evaluations.
�-Suspected bedbound status secondary to avascular necrosis of right hip. per patient its her right hip that she needs surgery which orthopedics at [facility] refused at this time and wants patient to lose weight before
Spoke with daughter in length 06/30 and she also thinks patient has been overly medicated due to her pain medications and this has been sent before by different physicians. I decreased her morphine dose this hospitalization.
Morbid Obesity due to excess calories / immobility
�- Affects all aspects of care.
�- This bed-bound 62y F will not be able to effect significant changes in diet or exercise to realize significant weight loss.
DVT Prophylaxis:� Lovenox
Code Status:� Full
General: Well Developed, Well Nourished and No Apparent Distress
HEENT: Normocephalic, Atraumatic and Moist Mucous Membranes
Respiratory: Clear to Auscultation; Negative Wheezes, Rales or Rhonchi
Cardiac: Regular Rhythm and S1/S2
GI: Soft, Nontender and Nondistended
Musculoskeletal: No Clubbing, No Cyanosis and No Edema
Skin: Ulcers (lt buttock decubitus)
Neuro: Awake and Alert
Anticipated Discharge: Today
Subjective/Interval History
-
Date of Service: July 15, 2023
has some pain
Objective Data
-
Labs:
Laboratory Results
07/15/23
04:48
Sodium 137
Potassium 3.8
Chloride 108 H
Carbon Dioxide 28
BUN 13
Creatinine 0.6
Glucose 97
Calcium 8.1 L
Vital Signs:
Vital Signs
Temp Pulse Resp BP Pulse Ox
97.9 F 66 18 110/71 98
07/15/23 07:30 07/15/23 10:28 07/15/23 10:28 07/15/23 09:57 07/15/23 10:28
I&O
07/14/23 07/15/23 07/16/23
06:59 06:59 06:59
Intake Total 1740 / 1740 1919 / 1919
Output Total 2400 / 2400 2425 / 2425
Balance -660 / -660 -505 / -505
[2023-07-15 12:14] LABS: Glucose - Point of Care 148 mg/dl (70-99)
--- NOTE | 2023-07-15 12:40 | W.DCSUMMARY ---
Discharge Summary
Discharge Data
Date of Admission: 06/28/23
Date of Discharge: 07/15/23
-
Pending Results: No
Hospital Course
62-year-old female with past medical history of avascular necrosis of the right hip, anxiety, seizure disorder, hypertension, chronic pain syndrome, chronic opioid dependence, COPD, chronic indwelling Mota catheter, anemia came to the hospital with
septic shock secondary to pneumonia. There was also suspicion of catheter associated urinary tract infection along with sacral decubitus ulcer. Patient blood cultures were negative. Patient was seen by infectious disease throughout
hospitalization. Patient finished antibiotics prior to the discharge. Patient also had some toxic metabolic encephalopathy which over time improved. Multiple attempts were done to get some records from patient previous hospitalization at [facility] however was unsuccessful. During the hospitalization she was also found to have acute congestive heart failure for which she was seen by cardiology. She was treated with IV Lasix. On discharge her Lasix was transitioned to oral. She was
also started on Entresto. While patient was hospitalized she also had COPD with exacerbation which over time improved. Patient was eventually discharged on prednisone with taper. Patient also had anemia which was likely thought was acute on
chronic blood loss from her sacral decub. Patient required blood transfusion while she was hospitalized. She also had hypocalcemia where she was seen by nephrology and was found to be vitamin D deficient. There was also concern of patient
overusing her pain medications so her morphine and oxycodone was decreased. Patient was evaluated by physical therapy who recommended SNF. When she was improved she was then discharged to SNF with close follow-up with all her physicians outpatient.
Discharge Plan
-
Patient Disposition: [facility]
Discharge Diagnosis/Procedures: Septic shock secondary to pneumonia
Catheter associated urinary tract infection
Acute on chronic anemia
Acute systolic congestive heart failure
Hypocalcemia with vitamin D deficiency
Hypomagnesemia
Avascular necrosis of the right hip
Severe anxiety
Seizure disorder
Chronic pain syndrome
Diet: As tolerated and No added salt
Activity: With assistance and As tolerated
Driving Restrictions: No driving
Bathing Restrictions: None
Activity Restrictions/Additional Instructions:
Wound Care Instructions
L buttock/ischium: clean gently with saline, skin prep periwound, adaptic, abd pad and medipore or paper tape change daily and prn drainage.
*Can add alginate over adaptic for increased drainage.
L Posterior thigh: clean with saline, Santyl to yellow slough, adaptic, gauze and medipore tape or paper tape daily and prn drainage.
R posterior thigh: clean with saline, silicone foam change q 3 days and prn drainage
barrier cream to itching areas on R buttock/hip
Air mattress with turning schedule
ROHO cushion for chair/w/c limit time oob to meals only
Follow up at wound care center call for an appointment.
Referrals:
Rex Boswell MD [Family Provider] - in less than 1 week
Jesus Del Castillo MD [Active] -
Eliz Hobbs MD [Active] -
Prescriptions:
New
furosemide 40 mg Tablet
40 mg PO DAILY Qty: 0 0RF
sennosides-docusate sodium [Stool Softener-Stimulant Laxat] 8.6-50 mg Tablet
1 tab PO BID Qty: 0 0RF
acetaminophen [Pain Relief ES (acetaminophen)] 500 mg Tablet
1,000 mg PO TID Qty: 0 0RF
carvedilol 3.125 mg Tablet
3.125 mg PO BID Qty: 0 0RF
lorazepam 0.5 mg Tablet
0.5 mg PO Q6HPRN PRN (Reason: anxiety) Qty: 10 0RF
gabapentin 300 mg Capsule
900 mg PO TID Qty: 0 0RF
sertraline 25 mg Tablet
100 mg PO DAILY Qty: 0 0RF
ergocalciferol (vitamin D2) 1,250 mcg (50,000 unit) Capsule
50,000 unit PO DAILY Qty: 7 0RF
Santyl 250 unit/gram Ointment
1 applic topical DAILY Qty: 0 0RF
levalbuterol HCl 1.25 mg/3 mL Solution For Nebulization
1.25 mg inhalation R Q6HPRN PRN (Reason: sob or wheezing) Qty: 90 0RF
ipratropium bromide 0.02 % Solution
0.5 mg inhalation R Q6HPRN PRN (Reason: sob or wheezing) Qty: 0 0RF
oxycodone 10 mg Tablet
10 mg PO Q6HPRN PRN (Reason: moderate to severe pain) Qty: 10 0RF
guaifenesin 600 mg Tablet Extended Release 12hr
1,200 mg PO Q12 Qty: 0 0RF
Entresto 24-26 mg Tablet
1 tab PO BID Qty: 0 0RF
prednisone 10 mg Tablet
See Rx Instructions .ROUTE .COMPLEX Qty: 18 0RF
Rx Instructions:
Take By Mouth:
30 mg daily x3 days,
20 mg daily x3 days, 10 mg daily x3 days.
Continued
atorvastatin 40 mg Tablet
40 mg PO HS
phenytoin sodium extended 100 mg Capsule
200 mg PO DAILY
magnesium hydroxide [Milk of Magnesia] 400 mg/5 mL Suspension
30 ml PO DAILY PRN (Reason: if no BM in 3 days)
bisacodyl [Dulcolax (bisacodyl)] 10 mg Suppository
10 mg DE DAILY PRN (Reason: if MOM is ineffective after 24 hrs)
pantoprazole 40 mg Tablet,Delayed Release (Dr/Ec)
40 mg PO DAILY
Fleet Enema 19-7 gram/118 mL Enema
118 ml DE DAILYPRN PRN (Reason: if dulcolax is ineffective after 24 hrs)
folic acid 1 mg Tablet
1 mg PO DAILY
collagenase clostridium histo. 250 unit/gram Ointment
1 applic TOPICAL DAILY
[place] 952-1,347 mg Powder In Packet
1 applic TOPICAL BID
magnesium oxide 400 mg magnesium Tablet
400 mg PO DAILY
Diclofenac Sodium 1% Gel
1 applic topical QID
Changed
morphine 30 mg Tablet Extended Release
15 mg PO BID Qty: 6 0RF
Discontinued
acetaminophen [Tylenol] 325 mg Tablet
650 mg PO Q4H PRN (Reason: mild pain/temp>100F)
albuterol sulfate 2.5 mg /3 mL (0.083 %) Solution For Nebulization
2.5 mg INHALATION R Q6HPRN PRN (Reason: sob/wheezing)
oxycodone [Roxicodone] 15 mg Tablet
15 mg PO Q6H PRN (Reason: wound pain)
Rx Instructions:
06/28/2023, for wound pain for up to 3 days; max daily amount = 60 mg.
gabapentin 300 mg Capsule
600 mg PO TID
sertraline 25 mg Tablet
125 mg PO DAILY
Discharge Orders:
Discharge Patient (As Directed); Ordered 07/15/23
Ordered By: Blaise Fierro
Discharge Date and Time
Discharge Date/Time: 07/15/23 19:22
--- NOTE | 2023-07-15 13:08 | CM ---
Addendum entered by Brielle Florez 07/15/23 14:13:
Met with patient at bedside to discuss discharge plan for today
IMM explained and signed
Patient reported that she still had personal belongings at prior facility. CM called liaison, Felicity Samuels; she ensured that she would contact the facility and have patient's belongings sent to [facility]
Addendum entered by Brielle Florez 07/15/23 13:51:
Ambulance Pick-up scheduled today @ 1830
Addendum entered by Brielle Florez 07/15/23 13:13:
Plan: discharge to SNF
Report # [phone]

Original Note:
Insurance Auth approved for [facility]
Plan: discharge via ambulance to SNF before 8 PM today
[2023-07-15] MEDS: ROXICODONE 10 MG PO (13:57)
[2023-07-15] MEDS: SANTYL OINTMENT 1 APPLIC TOPICAL (14:08)
[2023-07-15] MEDS: FLUZONE QUAD 2023-2024 SYRINGE 0.5 ML IM (14:09)
[2023-07-15 15:30] VITALS: BP 103/52
[2023-07-15] MEDS: ATIVAN 0.5 MG PO (15:56)
--- NOTE | 2023-07-15 16:35 | W.PN.NEPH.PH ---
Today's Communication / Plan
-
ok for d/c
vit D to continue
Assessment/Plan
-
Assessment
-recent PNA/sepsis, completed Abx
-hyponatremia resolved
-hypocalcemia
-HFrEF 30% with sev MR, mod TR/PHTN
-anemia
-chronic olivares
-AVN right hip
-seizure disorder
-chronic pain
-decubitus ulcer
Plan
hypocalcemia-multifactorial with low mg, low vit D
sallie is better now
-vitamin D with ergo daily in house, then weekly on dc
mg repleted
if persistent hypomag in the future likely d/c PPI
po lasix per primary
will s/o, call with ?s
-
-
Date of Service: July 15, 2023
CC / HPI / ROS
-
Chief Complaint:
hypocalcemia
History of Present Illness:
Mag repleted
Calcium low 8.1 uncorrected
BP stable
vit D deficient
wt decreasing
Review of Systems:
no cp or sob at rest
no n/v
Labs
-
Labs:
WBC 6.0 10^3/uL (4.8-10.8) 07/12/23 05:21
RBC 2.79 10^6/uL (4.20-5.40) L 07/12/23 05:21
Hgb 8.2 g/dL (12.0-16.0) L 07/12/23 05:21
Hct 26.4 % (37.0-47.0) L 07/12/23 05:21
Plt Count 218 10^3/uL (130-400) D 07/12/23 05:21
Sodium 137 mmol/L (135-145) 02/01/24 04:48
Potassium 3.8 mmol/L (3.5-5.1) 07/15/23 04:48
Chloride 108 mmol/L (98-107) H 07/15/23 04:48
Carbon Dioxide 28 mmol/L (22-30) 07/15/23 04:48
BUN 13 mg/dl (7-17) 07/15/23 04:48
Creatinine 0.6 mg/dL (0.6-1.0) 07/15/23 04:48
eGFR > 60.00 07/15/23 04:48
Glucose 97 mg/dl (70-99) 07/15/23 04:48
Calcium 8.1 mg/dl (8.4-10.2) L 07/15/23 04:48
Phosphorus Cancelled 07/12/23 15:24
Jqe-[id number]-Zwtcdhiecfm Pept 7100 pg/ml 06/29/23 03:52
Albumin Cancelled 07/12/23 08:28
Physical Exam
-
Vital Signs:
Vital Signs
Temp Pulse Resp BP Pulse Ox
97.9 F 68 16 110/71 96
07/15/23 07:30 07/15/23 16:00 07/15/23 16:00 07/15/23 09:57 07/15/23 16:00
Cardiovascular:: Regular rate and rhythm
Respiratory:: Bilateral: CTA
Lung Excursion:: Normal
Abdomen:: Nontender and Soft
Extremity Edema:: +1: Bilateral: (trace)
Olivares Catheter: Yes
[2023-07-15 17:09] LABS: Glucose - Point of Care 211 mg/dl (70-99)
[2023-07-15] MEDS: NOVOLOG FLEXPEN-LOW RESISTANCE 2 UNITS SC (17:24)
[2023-07-15] MEDS: LOVENOX 40 MG SC (17:24)
[2023-07-15] MEDS: ROXICODONE 5 MG PO (18:15)
== END 2023-07-15 19:22 | DRG 871 ==
LOC: 4 WEST ACU 21:55
PROVIDERS: Internal Medicine; ADMITTING PHYSICIAN Hospitalist; ATTENDING PHYSICIAN Internal Medicine; CONSULT PHYSICIAN Internal Medicine Cardiovascular Disease; CONSULT PHYSICIAN Internal Medicine Infectious Disease; CONSULT PHYSICIAN Psychiatry & Neurology Neurology; EMERGENCY PHYSICIAN Emergency Medicine; FAMILY PHYSICIAN Internal Medicine; OTHER PHYSICIAN Specialist
PROC: 30233N1 Transfusion of Nonautologous Red Blood Cells into Peripheral Vein, Percutaneous Approach (ICD-10-PCS; 2023-07-01)
PROC: 3E02340 Introduction of Influenza Vaccine into Muscle, Percutaneous Approach (ICD-10-PCS; 2023-07-15)
DX: A41.9 Sepsis, unspecified organism (principal); G92.8 Other toxic encephalopathy; I50.21 Acute systolic (congestive) heart failure; J18.9 Pneumonia, unspecified organism; L89.153 Pressure ulcer of sacral region, stage 3; J96.21 Acute and chronic respiratory failure with hypoxia; R65.21 Severe sepsis with septic shock; T83.511A Infection and inflammatory reaction due to indwelling urethral catheter, initial encounter; E87.1 Hypo-osmolality and hyponatremia; F11.20 Opioid dependence, uncomplicated; M87.9 Osteonecrosis, unspecified; J90 Pleural effusion, not elsewhere classified; J98.11 Atelectasis; I5A Non-ischemic myocardial injury (non-traumatic); I42.9 Cardiomyopathy, unspecified; D62 Acute posthemorrhagic anemia; G82.20 Paraplegia, unspecified; J43.9 Emphysema, unspecified; D63.8 Anemia in other chronic diseases classified elsewhere; E11.9 Type 2 diabetes mellitus without complications; E78.00 Pure hypercholesterolemia, unspecified; F32.9 Major depressive disorder, single episode, unspecified; F41.9 Anxiety disorder, unspecified; I11.0 Hypertensive heart disease with heart failure; I25.10 Atherosclerotic heart disease of native coronary artery without angina pectoris; K21.9 Gastro-esophageal reflux disease without esophagitis; G40.909 Epilepsy, unspecified, not intractable, without status epilepticus; G89.4 Chronic pain syndrome; F10.90 Alcohol use, unspecified, uncomplicated; M25.551 Pain in right hip; E66.01 Morbid (severe) obesity due to excess calories; I27.20 Pulmonary hypertension, unspecified; L29.9 Pruritus, unspecified; I08.1 Rheumatic disorders of both mitral and tricuspid valves; E55.9 Vitamin D deficiency, unspecified; F17.210 Nicotine dependence, cigarettes, uncomplicated; K30 Functional dyspepsia; D72.819 Decreased white blood cell count, unspecified; G47.33 Obstructive sleep apnea (adult) (pediatric); Y92.129 Unspecified place in nursing home as the place of occurrence of the external cause; Y84.6 Urinary catheterization as the cause of abnormal reaction of the patient, or of later complication, without mention of misadventure at the time of the procedure; Z60.2 Problems related to living alone; Z99.81 Dependence on supplemental oxygen; Z87.01 Personal history of pneumonia (recurrent); Z86.73 Personal history of transient ischemic attack (TIA), and cerebral infarction without residual deficits; Z23 Encounter for immunization; Z11.52 Encounter for screening for COVID-19; Z74.01 Bed confinement status; Z68.38 Body mass index [BMI] 38.0-38.9, adult; Z88.0 Allergy status to penicillin; Z88.1 Allergy status to other antibiotic agents; Z88.8 Allergy status to other drugs, medicaments and biological substances; I25.2 Old myocardial infarction; Z82.49 Family history of ischemic heart disease and other diseases of the circulatory system
CPT/HCPCS: 93308; 71045; 80048; 80053; 80185; 80202; 81003; 81015; 82040; 82140; 82248; 82306; 82330; 82550; 82607; 82962; 83036; 83540; 83550; 83605; 83735; 83880; 83935; 83970; 84100; 84145; 84300; 84425; 84439; 84443; 84484; 85014; 85018; 85025; 85027; 85610; 85652; 85730; 86850; 86860; 86870; 86880; 86900; 86901; 86920; 86922; 87040; 87070; 87086; 87449; 87502; 87807; 87811; 87899; 90686; 93005; 93306; 94640; 96365; 96366; 96375; 97163; 97166; 97530; 97535; 99285; G0008; P9016; Q9950

== ENCOUNTER 2023-07-16 08:36 | Emergency (ER) | payer OTHER, SELFPAY ==
[2023-07-16 08:50] VITALS: BP 118/66
[2023-07-16 09:00] VITALS: BP 117/57
--- NOTE | 2023-07-16 09:04 | ED.GENMED ---
History of Present Illness
General
Chief Complaint: Musculo-Skeletal Complaint
Source: patient and records
Exam Limitations: none
Time Seen by Provider: 07/16/23 08:55
Nursing documentation reviewed up to this point in time: agreed with
Travel History
Have you had any contact with someone who has COVID-19?: No
Do you have any symptoms of coronavirus? Fever > 100 degrees, chills, cough, shortness of breath, sore throat, loss of taste or smell, muscle aches, or headache?: No
History of Present Illness
History of Present Illness:
62-year-old female multiple chronic medical conditions was just admitted for 2 weeks discharged yesterday after febrile illness to the snf, patient states that she awoke this morning and pain did not receive her pain medication and asked to
be brought to the ER, she states she feels anxious as well did not receive her antianxiety medications, she is yelling in pain but is redirectable, peers to be on chronic narcotics and Ativan
Past History
Past History
ED Past Medical History: CAD, CHF, COPD, CVA, GERD, HTN, Hypercholesterolemia, NIDDM, Seizures, Psychiatric (Anxiety, depression) and Other (anemia, urinary incontinence)
Social History
Tobacco: Former smoker
Alcohol: None
Drug: None
Living: snf
Employment: Not employed
Review of Systems
Review of Systems
All Other Systems: Not applicable
Constitutional: Reports other (Pain)
Musculoskeletal: Reports joint pain
Psychiatric: Reports anxiety
Phy Exam
Physical Exam
Physical Exam:
Physical Exam
General: 62-year-old female yelling out in pain redirectable
Neck: No jaundice
Heart: s1/s2 regular rate and rhythm, no murmur. equal radial pulses.
Lungs: no acute respiratory distress.
Neuro: alert and oriented
Skin: no rash
Psychiatric: Agitated but redirect
Extremities: No cyanosis
Course
Orders/Labs/Results
Orders:
Orders
07/16/23 09:00
Lorazepam [Ativan] 0.5 mg PO NOW STA
Oxycodone [Roxicodone] 10 mg PO NOW STA
07/16/23 09:08
Morphine Sulfate Extended Rel. [Ms Contin (Extended Release)] 15 mg PO NOW STA
Vital Signs
Initial and Last Documented VS:
Initial Vital Signs
Temp Pulse Resp Pulse Ox
98.3 F 70 22 98
07/16/23 08:42 07/16/23 08:42 07/16/23 08:42 07/16/23 08:42
Last Documented Vital Signs
Temp Pulse Resp Pulse Ox
98.3 F 70 22 98
07/16/23 08:42 07/16/23 08:42 07/16/23 08:42 07/16/23 08:42
MDM/Problems Addressed
Differential Diagnosis Includes:
Chronic pain early withdrawal
MDM/Problems Addressed:
Chronic pain anxiety
Chronic conditions affecting care:
chronic pain anxiety
Acute Exacerbation and/or Progression of Chronic Illness:
Chronic pain anxiety
*Pulse Oximetry
Patient hypoxic: no
*Critical Care Note
Total Time (30-74mins, 75-104mins- exclusive of procedures): Not Applicable
Data Reviewed
Review of Other/Old Records Reveals: Labs, Records and Discharge Summary
Source: patient and records
Update Note
Update Note:
Update, discharge summary from yesterday reviewed, patient's mental status is clear when she calms down, suspect her main issue here is due to medications, she is upset she did not receive her a.m. meds yet we will give her her meds, with an eye
towards sending her back to her facility
ED Attending Note
-
Portions of this chart may have been created with voice recognition software.� Occasional wrong word or��sound alike� substitutions may have occurred due to the inherent limitations of voice recognition software.
Discharge Plan
Departure
Prescriptions:
No Action
atorvastatin 40 mg Tablet
40 mg PO DAILY
phenytoin sodium extended 100 mg Capsule
200 mg PO DAILY
magnesium hydroxide [Milk of Magnesia] 400 mg/5 mL Suspension
30 ml PO HSPRN PRN (Reason: if no BM in 3 days)
bisacodyl [Dulcolax (bisacodyl)] 10 mg Suppository
10 mg OK DAILY PRN (Reason: if no results for MOM)
pantoprazole 40 mg Tablet,Delayed Release (Dr/Ec)
40 mg PO DAILY
Fleet Enema 19-7 gram/118 mL Enema
118 ml OK DAILYPRN PRN (Reason: if dulcolax suppository ineffective)
folic acid 1 mg Tablet
1 mg PO DAILY
collagenase clostridium histo. 250 unit/gram Ointment
1 applic TOPICAL BID
[place] 952-1,347 mg Powder In Packet
1 applic TOPICAL BID
magnesium oxide 400 mg magnesium Tablet
400 mg PO DAILY
furosemide 40 mg Tablet
40 mg PO DAILY Qty: 0 0RF
carvedilol 3.125 mg Tablet
3.125 mg PO BID Qty: 0 0RF
lorazepam 0.5 mg Tablet
0.5 mg PO Q6HPRN PRN (Reason: anxiety) Qty: 10 0RF
Rx Instructions:
07/16/2023, start date: 07/15/2023; end date: 07/29/2023.
gabapentin 300 mg Capsule
900 mg PO TID Qty: 0 0RF
ergocalciferol (vitamin D2) 1,250 mcg (50,000 unit) Capsule
50,000 unit PO DAILY Qty: 7 0RF
levalbuterol HCl 1.25 mg/3 mL Solution For Nebulization
1.25 mg inhalation R Q6HPRN PRN (Reason: sob or wheezing) Qty: 90 0RF
ipratropium bromide 0.02 % Solution
0.5 mg inhalation R Q6HPRN PRN (Reason: sob or wheezing) Qty: 0 0RF
oxycodone 10 mg Tablet
10 mg PO Q6HPRN PRN (Reason: moderate to severe pain) Qty: 10 0RF
Entresto 24-26 mg Tablet
1 tab PO BID Qty: 0 0RF
prednisone 10 mg Tablet
See Rx Instructions .ROUTE .COMPLEX Qty: 18 0RF
Rx Instructions:
07/16/2023,
30 mg daily x3 days (07/16/2023 - 07/19/2023)
20 mg daily x3 days (07/19/2023 - 07/22/2023)
10 mg daily x3 days (07/22/2023 - 07/25/2023)
acetaminophen [Tylenol] 325 mg Tablet
650 mg PO Q6H PRN (Reason: mild pain)
acetaminophen 650 mg Suppository
650 mg OK Q4H PRN (Reason: mild pain/temp 100 or above)
acetaminophen [Tylenol Extra Strength] 500 mg Tablet
1,000 mg PO Q6H PRN (Reason: mild pain)
acetaminophen [Tylenol Extra Strength] 500 mg Tablet
1,000 mg PO TID
morphine 15 mg Tablet
15 mg PO BID
diclofenac sodium 1 % gel
1 applic topical QID
sertraline 100 mg Tablet
100 mg PO DAILY
Santyl 250 unit/gram ointment
1 applic topical DAILY
guaifenesin 600 mg tablet extended release 12hr
1,200 mg PO BID
Referrals:
Rex Boswell MD [Family Provider] -
Interventions
Interventions:
*Risk Screen - Suicide Last Done: 07/16/23 08:42
*General Assessment Last Done: 07/16/23 08:42
*Neglect/Abuse Screening Last Done: 07/16/23 08:42
*ED COVID-19 Vaccine History Last Done: 07/16/23 08:54
[2023-07-16] MEDS: ATIVAN 0.5 MG PO (09:17)
[2023-07-16] MEDS: ROXICODONE 10 MG PO (09:17)
[2023-07-16 10:00] VITALS: BP 102/67
[2023-07-16] MEDS: MS CONTIN (EXTENDED RELEASE) 15 MG PO (10:56)
== END 2023-07-16 11:18 | disposition home or self-care (01) ==
LOC: EMR 08:36
PROVIDERS: EMERGENCY PHYSICIAN Emergency Medicine; FAMILY PHYSICIAN Internal Medicine
DX: F11.20 Opioid dependence, uncomplicated (principal); F41.9 Anxiety disorder, unspecified; G89.29 Other chronic pain; Z87.891 Personal history of nicotine dependence
CPT/HCPCS: 99283